=== PATIENT | female | born 1955 | race Caucasian/White ===

== ENCOUNTER 2016-04-24 17:40 | Inpatient (IN) | payer MEDICARE, OTHER ==
[2016-04-24 18:53] LABS: Hematocrit 34.5 % (37.0-47.0); Hemoglobin 11.5 gm/dL (12.5-16.0); Mean Cell Volume 86.3 fl (78-100); Mean Corpuscular Hemoglobin 28.8 pg (27-31); Mean Corpuscular Hgb Conc 33.3 g/dl (32-36); Mean Platelet Volume 8.8 fl (6.0-9.5); Neutrophil # 12.3 K/mm3 (1.3-6.0); Neutrophil % 81.1 % (42-75.0); Platelet Count 356 K/mm3 (150-450); Red Cell Distribution Width 13.9 % (11.5-14.0); White Blood Count 15.2 K/mm3 (4.0-10.5)
[2016-04-24] MEDS ORDERED: NORMAL SALINE 1,000 ML IV ONE (19:00)
--- NOTE | 2016-04-24 19:00 | ERNOTE ---
Time Seen by Provider: 04/24/16 18:40 Stated Complaint: ILL Presenting Symptoms:: cough Source: patient, family, [facility] records Exam Limitations: clinical condition Immunizations: IMMUNIZATION HX Immunizations Up to Date Yes History of Influenza Vaccine Yes Hx Pneumococcal Vaccination No Allergies/Adverse Reactions: Allergies No Known Allergies Allergy (Verified 02/27/16 15:27) Home Medications: HOME MEDICATIONS Aspirin [Aspirin Chewable] 81 mg PO DAILY 07/19/12 [Last Taken 11/23/12] Calcium Carbonate/Vitamin D3 [Calcium 600-Vit D3 200 Tablet] 1 each PO TID 07/19 [Last Taken 11/23/12] Gabapentin [Neurontin] 800 mg PO QID 07/19/12 [Last Taken 11/23/12] Imipramine HCl [Tofranil] 25 mg PO TID 07/19/12 [Last Taken 11/23/12] Methadone HCl 2.5 mg PO DAILY 07/19/12 [Last Taken 11/23/12] Multivitamin [Multivitamins] 1 each PO DAILY 07/19/12 [Last Taken 11/23/12] Rosuvastatin Calcium [Crestor] 20 mg PO DAILY 07/19/12 [Last Taken 11/23/12] predniSONE [Prednisone] 5 mg PO DAILY 07/19/12 [Last Taken 11/23/12] Alendronate Sodium [Fosamax] 70 mg PO TU 11/23/12 [Last Taken Unknown] Levothyroxine Sodium [Synthroid] 75 mcg PO DAILY 07/09/14 [Last Taken Unknown] Acetaminophen [Tylenol] 650 mg PO QID PRN #1 tablet 07/13/14 [Last Taken Unknown ] carBAMazepine [Tegretol] 2 tab PO BID #120 tablet 07/13/14 [Last Taken Unknown] Baclofen 20 mg PO QID 02/27/16 [Last Taken Unknown] Sulfamethoxazole/Trimethoprim [Bactrim Ds] 1 tab PO BID #60 tab 02/27/16 [Last Taken Unknown] - History of Present Ilness Narrative: Patient has had mild cough for 2-3 days as well as mild shortness of breath. Today she was more lethargic and confused and started to have a temperature of 99F and her BP started to drop. Per her brother she has a long standing history of MS, is bed and wheelchair bound, has a chronic suprapubic catheter and three episodes of sepsis from UTI' s before. Frequency/Possible Cause: Reports: occasional episodes Review of Systems - Narrative Narrative: limited by medical condition - Review of Systems Constitutional: Present: fever Respiratory: Present: shortness of breath Gastrointestinal/Abdominal: Absent: nausea, vomiting - Patient's Past Medical History Patient History - Medical: Chronic Pain, GERD, Hypothyroidism, Other Patient History - Cardiac/Respiratory: CHF - mild systolic dysfunction, diastolic dysfunction, echo 07/20/2012, Hypertension, Hyperlipidemia Patient History - Cancer: No Hx of Cancer Patient History - Surgical Procedures: Hysterectomy, Other - Family History Grandmother-Maternal Family History - Cancer: Colon Sister Family History - Medical: Kidney stone Family History - Cardiac/Respiratory: CVA/Stroke Brother Family History - Medical: Kidney stone Father Family History - Medical: Family History - Cardiac/Respiratory: No pertinent hx Family History - Cancer: Lung - Social History Living Situations: [facility] Alcohol Use: none Drug Use: none Physical Exam - Physical Exam General Appearance: Present: wd/wn, no apparent distress, lethargic - arousable Eye Exam: Normal inspection: bilateral, PERRL: bilateral Ears, Nose, Throat: Present: normal pharynx, dry mucous membranes Neck: Present: supple. Absent: lymphadenopathy (R), lymphadenopathy (L) Respiratory: Present: no respiratory distress, normal breath sounds, no accessory muscle use, lungs clear Cardiovascular/Chest: Present: regular rate, rhythm, no murmur Gastrointestinal/Abdominal: Present: normal bowel sounds, nontender, soft, distended, other - suprapubic cath in place Neurological Exam: Present: other - arousable, knows name, place and date of , [employer] and smile Skin Exam: Present: normal color, warm/dry ED Progress - Results and Orders Patient's Lab Results:: I have reviewed the patient's lab results. - Vital Signs Patient's Vital Signs:: I have reviewed the patient's vital signs. Vital Signs: Vital Signs 04/24/16 17:52 Temperature 36.6 C Pulse Rate 68 Respiratory 16 Rate Blood Pressure 96/44 O2 Sat by Pulse 97 Oximetry - X-Ray X-Ray #1 X-Ray: chest - no acute findings Interpretation: Reviewed by me - Progress/Reassessment Chief Complaint: Upper Respiratory Symptoms Progress Note-Subjective: 04/24/16 19:20 blood pressure improved with fluid bolus 04/24/16 19:30 discussed results with brother (POA) will admit for UTI with sepsis 04/24/16 19:40 discussed with Elzbieta Reynoso ([employer]ANGE [employer]NAG[employer]IST) accepted patient for admission to hospital , last cultures from February grew Klebisella and proteus, will start on Rocephin Departure - Departure Clinical Impression: UTI (urinary tract infection) Qualifiers: Urinary tract infection type: catheter-associated UTI Indwelling urinary catheter type: cystostomy catheter Encounter type: initial encounter Qualified Code(s): T83.510A - Infection and inflammatory reaction due to cystostomy catheter, initial encounter; N39.0 - Urinary tract infection, site not specified Sepsis Qualifiers: Sepsis type: sepsis due to unspecified organism Qualified Code(s): A41.9 - Sepsis, unspecified organism Disposition: [facility] Condition: Fair
[2016-04-24 19:16] LABS: Albumin * 3.1 gm/dl (3.4-5.0); Anion Gap 10.9 mmol/L (6.8-13.8); BUN/Creatinine Ratio 15.1 (9.0-21.6); Bilirubin, Total 0.3 mg/dL (0.0-1.1); Ca. Corrected For Albumin 9.9 mg/dL (8.4-10.2); Calcium * 9.5 mg/dL (7.9-10.9); Carbon Dioxide 31.3 mmol/L (24-32.6); Potassium 4.2 mmol/L (3.4-4.6)
[2016-04-24 19:20] LABS: Urine Bilirubin Negative (NEGATIVE); Urine Blood 250 /ul (NEGATIVE); Urine Ketone Negative (NEGATIVE); Urine Protein >=300 mg/dL (NEGATIVE); Urine Specific Gravity 1.015 SP.GR. (1.005-1.010); Urine Urobilinogen Normal (NORMAL); Urine pH 8.5 pH (5.0-7.0)
[2016-04-24 19:32] LABS: Urine Appearance Turbid; Urine Bacteria 4+; Urine Color Yellow; Urine Nitrite Positive (NEGATIVE); Urine WBC 0-5 /hpf (0-5)
[2016-04-24 19:33] LABS: Urine Transitional Epi Cells TRACE /hpf
[2016-04-24] MEDS: NORMAL SALINE 1,000 ML IV SCH (21:23)
--- NOTE | 2016-04-24 22:45 | HP ---
<Elzbieta Reynoso - Last Filed: 04/25/16 00:36> Chief Complaint - Chief Complaint Date of Service: 04/24/16 Time of Service: 22:44 Chief Complaint: decrease LOC History of Present Illness: Pt is a 60 year old female pt of Dr. Diez who presented to the ER from the [facility] for mild cough for 2-3 days as well as SOB. PMH includes: MS, mild diastolic dysfunction, GERD, HTN, HLD, and hypothyroidism. Most information obtained is from EMR and previous records as pt is not alert upon my examination. Per EMR today she was more lethargic, confused, hypotensive and developed a temperature of 99F. Per her brother she has a long standing history of MS, is bed and wheelchair bound, has a chronic suprapubic catheter and three episodes of sepsis from UTI's before. ER workup included a chest xray which was without any acute abnormalities. +UA with nitrates, esterase, and +4 bacteria. Initial BP in the ER was 90s/40s. Lactic acid was 1.4. Last urine culture grew Klebsiella, group B strep, and proteus mirabilis. Due to her multiple co- morbidities, previous history and clinical presentation at this time she will need to be admitted to in patient for further treatment of her UTI with IV antibiotics and close monitoring of her hemodynamic status. - Patient's Past Medical History Patient History - Medical: Chronic Pain, GERD, Hypothyroidism, Other - MS Patient History - Cardiac/Respiratory: CHF - mild systolic dysfunction, diastolic dysfunction, echo 07/20/2012, Hypertension, Hyperlipidemia Patient History - Cancer: No Hx of Cancer Patient History - Surgical Procedures: Hysterectomy, Other Patient History - Other: None LMP (females 10-50): Menopausal - Family History Grandmother-Maternal Family History - Cancer: Colon Sister Family History - Medical: Kidney stone Family History - Cardiac/Respiratory: CVA/Stroke Brother Family History - Medical: Kidney stone Father Family History - Medical: Family History - Cardiac/Respiratory: No pertinent hx Family History - Cancer: Lung - Social History Living Situations: prison Does anyone smoke in the home?: No Smoking Status: Never smoker Have you smoked in the past 12 months: No Alcohol Use: none Drug Use: none - Immunizations Immunizations Up to Date: Yes Hx Pneumococcal Vaccination: Yes History of Influenza Vaccine: Yes Review Of Systems (GEN) - Review of Systems Additional Comments: Unable to obtain due to patient decreased LOC Allergies/Adverse Reactions: Allergies Allergy/AdvReac Type Severity Reaction Status Date / Time No Known Allergies Allergy Verified 02/27/16 15:27 Home Medications: HOME MEDICATIONS Aspirin [Aspirin Chewable] 81 mg PO DAILY 07/19/12 [Last Taken 11/23/12] Calcium Carbonate/Vitamin D3 [Calcium 600-Vit D3 200 Tablet] 1 each PO TID 07/19 [Last Taken 11/23/12] Gabapentin [Neurontin] 800 mg PO QID 07/19/12 [Last Taken 11/23/12] Imipramine HCl [Tofranil] 25 mg PO TID 07/19/12 [Last Taken 11/23/12] Methadone HCl 2.5 mg PO DAILY 07/19/12 [Last Taken 11/23/12] Multivitamin [Multivitamins] 1 each PO DAILY 07/19/12 [Last Taken 11/23/12] Rosuvastatin Calcium [Crestor] 20 mg PO DAILY 07/19/12 [Last Taken 11/23/12] predniSONE [Prednisone] 5 mg PO DAILY 07/19/12 [Last Taken 11/23/12] Alendronate Sodium [Fosamax] 70 mg PO TU 11/23/12 [Last Taken Unknown] Levothyroxine Sodium [Synthroid] 75 mcg PO DAILY 07/09/14 [Last Taken Unknown] carBAMazepine [Tegretol] 2 tab PO BID #120 tablet 07/13/14 [Last Taken Unknown] Baclofen 20 mg PO QID 02/27/16 [Last Taken Unknown] Acetaminophen [Tylenol] 650 mg PO BID PRN 04/24/16 [Last Taken Unknown] Atenolol [Tenormin] 50 mg PO DAILY 04/24/16 [Last Taken Unknown] Methenamine Mandelate 1 gm PO QID 04/24/16 [Last Taken Unknown] Nystatin 1 appl TP BID 04/24/16 [Last Taken Unknown] Polyethylene Glycol 3350 [Miralax] 17 gm PO HS 04/24/16 [Last Taken Unknown] Exam - Exam Vital Signs: Vital Signs - Last Taken Temp 36.7 C 04/24/16 20:16 Pulse 71 04/24/16 20:16 Resp 16 04/24/16 20:16 BP 90/53 04/24/16 20:16 Pulse Ox 92 04/24/16 20:16 Constitutional: Present: Somnolent ENT Exam: Present: hearing grossly normal Eye Exam: bilateral eye: normal inspection, PERRL - +1 Respiratory: Present: chest non-tender, lungs clear, normal breath sounds, no respiratory distress, no accessory muscle use Cardiovascular/Chest: Present: normal peripheral pulses, regular rate, rhythm, no chest tenderness, no edema, no murmur Peripheral Pulses: dorsalis-pedis (R): 2+, dorsalis-pedis (L): 2+, radial (R): 2 +, radial (L): 2+ Abdomen: Present: Normal bowel sounds, soft, nontender, nondistended, no rebound tenderness /Rectal: Present: Other - Suprapubic catheter in place without drainage or erythema Extremity: Present: non-tender, no pedal edema, no calf tenderness, normal capillary refill, other - erythema noted bilaterally to distal phalanges. Additionally there is scattered erythema extending up the rigth lower extremity just past the knee. No swelling or tenderness noted. Skin Exam: Present: warm/dry, no cyanosis Lymphatic: Present: no adenopathy Neurologic: Present: motor weakness - BLE, other - Pt awakens to painful stimuli , will answer one question appropriately and then drift back to sleep. Diagnostic Studies: Laboratory Results Laboratory Tests 04/24/16 04/24/16 04/24/16 18:03 18:56 18:56 WBC 15.2 H Hgb 11.5 L Hct 34.5 L Plt Count 356 Immature Gran % (Auto) 0.90 H Immature Gran # (Auto) 0.13 H Neutrophils % 81.1 H Sodium 129 L Potassium 4.2 Chloride 91 L BUN 19 D Creatinine 1.26 Random Glucose 111 H Lactic Acid, Venous 1.4 AST 73 H ALT 82 H Urine Appearance Urine Protein Urine Blood Urine Nitrate Prot Sulfosalicylic Acd Ur Leukocyte Esterase Urine RBC Urine Bacteria Urine Culture Comments Influenza Type A Ag Influenza Type B Ag 04/24/16 04/24/16 19:10 19:41 WBC Hgb Hct Plt Count Immature Gran % (Auto) Immature Gran # (Auto) Neutrophils % Sodium Potassium Chloride BUN Creatinine Random Glucose Lactic Acid, Venous AST ALT Urine Appearance Turbid Urine Protein >=300 H Urine Blood 250 H Urine Nitrate Positive H Prot Sulfosalicylic Acd 4+ H Ur Leukocyte Esterase 75 H Urine RBC 5-10 H Urine Bacteria 4+ H Urine Culture Comments Culture to follow Influenza Type A Ag Negative Influenza Type B Ag Negative Assessment/Plan - Assessment/Plan (1) UTI (urinary tract infection) Assessment: Last urine culture grew Klebsiella, group B strep, and proteus mirabilis, all are sensitive to Rocephin. Pending culture here. Unfortunately BC were not drawn in ER, will order now, but has received one dose of antibiotics already. -1gm IV Rocephin Q24H -BC now -UA pending Problem: Acute QualifierTitle: Urinary tract infection type: catheter-associated UTI Indwelling urinary catheter type: cystostomy catheter Encounter type: initial encounter Qualified Code(s): T83.510A - Infection and inflammatory reaction due to cystostomy catheter, initial encounter; N39.0 - Urinary tract infection, site not specified (2) Altered mental status Assessment: Unsure etiology, per brother this usually happens when she gets UTI's. Pt responsive to painful stimuli, will answer a question appropriately then drifts back to sleep. Will continue to monitor for now. If continues to be altered can consider head CT for further etiology workup. -Urine drug screen -NPO until more awake Problem: Acute QualifierTitle: Altered mental status type: somnolence Qualified Code(s) : R40.0 - Somnolence (3) Hypotension Assessment: BP have remained with SBP in the 90's since admission. There is only one other previous recording from 02/2016 that pt was in 126/69. Could be due to infection , however pt is not clinical septic at this time, could be early sepsis. Will provided MIVF overnight and monitor VS closely. -MIVF D5.45@125ml/hr -VS Q2H -Hold BP medications Problem: Acute (4) Multiple sclerosis Assessment: Stable Problem: Chronic (5) GERD (gastroesophageal reflux disease) Problem: Chronic (6) HLD (hyperlipidemia) Problem: Chronic (7) Hypothyroidism Problem: Chronic <John Machado - Last Filed: 04/25/16 18:44> Immunizations: IMMUNIZATION HX Immunizations Up to Date Yes History of Influenza Vaccine Yes Hx Pneumococcal Vaccination Yes Exam - Exam Vital Signs: Vital Signs - Last Taken Temp 37.0 C 04/25/16 15:04 Pulse 118 H 04/25/16 15:04 Resp 18 04/25/16 15:04 BP 98/62 04/25/16 15:04 Pulse Ox 92 04/25/16 15:04 Diagnostic Studies: Laboratory Results WBC 15.2 K/mm3 (4.0-10.5) H 04/24/16 18:03 RBC 4.00 M/mm3 (4.2-5.4) L 04/24/16 18:03 Hgb 11.5 gm/dL (12.5-16.0) L 04/24/16 18:03 Hct 34.5 % (37.0-47.0) L 04/24/16 18:03 MCV 86.3 fl (78-100) 04/24/16 18:03 MCH 28.8 pg (27-31) 04/24/16 18:03 MCHC 33.3 g/dl (32-36) 04/24/16 18:03 RDW 13.9 % (11.5-14.0) 04/24/16 18:03 Plt Count 356 K/mm3 (150-450) 04/24/16 18:03 MPV 8.8 fl (6.0-9.5) 04/24/16 18:03 Immature Gran % (Auto) 0.90 % (0.001-0.429) H 04/24/16 18:03 Immature Gran # (Auto) 0.13 K/mm3 (0.000-0.0310) H 04/24/16 18:03 Neutrophils % 81.1 % (42-75.0) H 04/24/16 18:03 Lymphocytes % 10.8 % (20-51) L 04/24/16 18:03 Monocytes % 6.9 % (0.0-9) 04/24/16 18:03 Eosinophils % 0.0 % (0.0-3.0) 04/24/16 18:03 Basophils % 0.3 % (0.0-1.0) 04/24/16 18:03 Nucleated RBC % 0.0 k/mm3 (0-1) 04/24/16 18:03 Neutrophils # 12.3 K/mm3 (1.3-6.0) H 04/24/16 18:03 Lymphocytes # 1.6 k/mm3 (1.5-3.5) 04/24/16 18:03 Monocytes # 1.0 k/mm3 (0.0-1.0) 04/24/16 18:03 Eosinophils # 0.0 k/mm3 (0.0-0.7) 04/24/16 18:03 Absolute Basophils 0.0 k/mm3 (0.0-0.1) 04/24/16 18:03 Sodium 129 mmol/L (132-142) L 04/24/16 18:56 Plasma Sodium 129 mmol/L (130-142) L 04/24/16 18:56 Potassium 4.2 mmol/L (3.4-4.6) 04/24/16 18:56 Chloride 91 mmol/L (97-106) L 04/24/16 18:56 Carbon Dioxide 31.3 mmol/L (24-32.6) 04/24/16 18:56 Anion Gap 10.9 mmol/L (6.8-13.8) 04/24/16 18:56 BUN 19 mg/dL (3-23) D 04/24/16 18:56 Creatinine 1.26 mg/dL (0.4-1.4) 04/24/16 18:56 Est GFR (Non-Af Amer) 46 mL/min (60-130) L D 04/24/16 18:56 BUN/Creatinine Ratio 15.1 (9.0-21.6) 04/24/16 18:56 Random Glucose 111 mg/dL (70-110) H 04/24/16 18:56 Lactic Acid, Venous 1.4 mmol/L (0.4-2.0) 04/24/16 18:56 Calcium 9.5 mg/dL (7.9-10.9) 04/24/16 18:56 Calcium Adj for Albumin 9.9 mg/dL (8.4-10.2) 04/24/16 18:56 Total Bilirubin 0.3 mg/dL (0.0-1.1) 04/24/16 18:56 AST 73 U/L (0-48) H 04/24/16 18:56 ALT 82 U/L (19-67) H 04/24/16 18:56 Alkaline Phosphatase 105 U/L (50-170) 04/24/16 18:56 Total Protein 7.0 gm/dL (6.2-8.2) 04/24/16 18:56 Albumin 3.1 gm/dl (3.4-5.0) L 04/24/16 18:56 Urine Color Yellow 04/24/16 19:10 Urine Appearance Turbid 04/24/16 19:10 Urine pH 8.5 pH (5.0-7.0) 04/24/16 19:10 Ur Specific [place] 1.015 SP.GR. (1.005-1.010) 04/24/16 19:10 Urine Protein >=300 mg/dL (NEGATIVE) H 04/24/16 19:10 Urine Glucose (UA) Negative mg/dL (NEGATIVE) 04/24/16 19:10 Urine Ketones Negative mg/dL (NEGATIVE) 04/24/16 19:10 Urine Blood 250 /ul (NEGATIVE) H 04/24/16 19:10 Urine Nitrate Positive (NEGATIVE) H 04/24/16 19:10 Urine Bilirubin Negative mg/dl (NEGATIVE) 04/24/16 19:10 Prot Sulfosalicylic Acd 4+ mg/dL (0) H 04/24/16 19:10 Urine Urobilinogen Normal EU/dl (NORMAL) 04/24/16 19:10 Ur Leukocyte Esterase 75 /ul (NEGATIVE) H 04/24/16 19:10 Urine RBC 5-10 /hpf (0-5) H 04/24/16 19:10 Urine WBC 0-5 /hpf (0-5) 04/24/16 19:10 Ur Epithelial Cells Trace /hpf (0-5) 04/24/16 19:10 Ur Transition Epith Cell Trace /hpf (NONE) 04/24/16 19:10 Urine Bacteria 4+ (NONE) H 04/24/16 19:10 Urine Culture Comments Culture to follow 04/24/16 19:10 Urine Opiates Screen Negative (NEGATIVE) 04/24/16 19:10 Barbiturate Screen Negative (NEGATIVE) 04/24/16 19:10 Ur Phencyclidine Scrn Negative (NEGATIVE) 04/24/16 19:10 Urine Amphetamine Negative (NEGATIVE) 04/24/16 19:10 U Benzodiazepines Scrn Negative (NEGATIVE) 04/24/16 19:10 Urine Cocaine Screen Negative (NEGATIVE) 04/24/16 19:10 Urine Marijuana (THC) Negative (NEGATIVE) 04/24/16 19:10 Influenza Type A Ag Negative (NEGATIVE) 04/24/16 19:41 Influenza Type B Ag Negative (NEGATIVE) 04/24/16 19:41 Assessment/Plan - Narrative Narrative: I have reviewed this person's chart and examined the patient. I personally directed all of [facility]'s care for the patient. This is this is a case of impaired mentation due to a severe bladder infection, related partially to her indwelling Huddleston catheter for neurogenic bladder and in part related to her medication, which causes immunosuppression. Antibiotics are being given. Cultures are pending. I estimate a hospital stay of 3 days. Prognosis is fair to good.
[2016-04-25 03:03] LABS: Cocaine Ur Negative (NEGATIVE); Urine Barbiturate Negative (NEGATIVE); Urine Benzodiazepines Negative (NEGATIVE); Urine Opiates Negative (NEGATIVE); Urine PCP Negative (NEGATIVE); Urine THC Negative (NEGATIVE)
[2016-04-25] MEDS: NORMAL SALINE 1,000 ML IV SCH ×2 (04:11→09:05)
[2016-04-25] MEDS: ENOXAPARIN SODIUM 40 MG/0.4 ML SYRG SC SCH (07:25)
[2016-04-25] MEDS ORDERED: ACETAMINOPHEN 325 MG TABLET PO PRN (07:44)
[2016-04-25] MEDS: ASPIRIN 81 MG TAB.CHEW PO SCH (09:08)
[2016-04-25] MEDS: LEVOTHYROXINE SODIUM 75 MCG TABLET PO SCH (09:08)
[2016-04-25] MEDS: IMIPRAMINE HCL 25 MG TABLET PO SCH ×3 (09:08→16:56)
[2016-04-25] MEDS: CALCIUM CARBONATE/VITAMIN D3 1 TAB TABLET PO SCH ×3 (09:08→16:54)
[2016-04-25] MEDS: BACLOFEN 10 MG TABLET PO SCH ×4 (09:09→20:11)
[2016-04-25] MEDS: predniSONE 10 MG TABLET PO SCH (09:09)
[2016-04-25] MEDS: MULTIVITAMINS 1 CAP CAPSULE PO SCH (09:10)
[2016-04-25] MEDS: ATENOLOL 50 MG TABLET PO SCH (09:10)
[2016-04-25] MEDS: carBAMazepine 200 MG TABLET PO SCH ×2 (09:10→20:12)
[2016-04-25] MEDS: NYSTATIN 30 APPL TUBE TP SCH ×2 (09:11→20:13)
[2016-04-25] MEDS: GABAPENTIN 400 MG CAPSULE PO SCH ×4 (09:16→20:10)
[2016-04-25] MEDS: METHADONE HCL 10 MG TABLET PO SCH (09:16)
[2016-04-25] MEDS: NORMAL SALINE 1,000 ML IV PRN ×2 (12:47→23:10)
[2016-04-25] MEDS: ROSUVASTATIN CALCIUM 10 MG TABLET PO SCH (20:12)
[2016-04-25] MEDS: POLYETHYLENE GLYCOL 3350 119 GM BTL PO SCH (20:13)
[2016-04-26 05:40] LABS: Hematocrit 32.2 % (37.0-47.0); Hemoglobin 10.6 gm/dL (12.5-16.0); Mean Cell Volume 87.7 fl (78-100); Mean Corpuscular Hemoglobin 28.9 pg (27-31); Mean Corpuscular Hgb Conc 32.9 g/dl (32-36); Mean Platelet Volume 8.8 fl (6.0-9.5); Neutrophil # 4.3 K/mm3 (1.3-6.0); Neutrophil % 58.3 % (42-75.0); Platelet Count 347 K/mm3 (150-450); Red Blood Count 3.67 M/mm3 (4.2-5.4); Red Cell Distribution Width 13.9 % (11.5-14.0); White Blood Count 7.3 K/mm3 (4.0-10.5)
[2016-04-26] MEDS ORDERED: ALENDRONATE SODIUM 70 MG TABLET PO SCH (06:00)
[2016-04-26 06:10] LABS: Albumin * 2.4 gm/dl (3.4-5.0); Anion Gap 10.7 mmol/L (6.8-13.8); BUN/Creatinine Ratio 11.8 (9.0-21.6); Bilirubin, Total 0.2 mg/dL (0.0-1.1); Ca. Corrected For Albumin 9.6 mg/dL (8.4-10.2); Calcium * 8.6 mg/dL (7.9-10.9); Carbamazepine 11.7 mcg/mL (4.0-12.0); Potassium 3.7 mmol/L (3.4-4.6); T4 Free * 0.9 ng/dL (0.76-1.46); TSH * 2.025 uIU/mL (0.358-3.74); Total Protein 6.1 gm/dL (6.2-8.2)
[2016-04-26] MEDS: LEVOTHYROXINE SODIUM 75 MCG TABLET PO SCH (07:53)
[2016-04-26] MEDS: ENOXAPARIN SODIUM 40 MG/0.4 ML SYRG SC SCH (07:53)
[2016-04-26] MEDS ORDERED: ERTAPENEM SODIUM 1,000 MG in NORMAL SALINE 50 ML IV SCH (08:45)
--- NOTE | 2016-04-26 08:52 | PN ---
Subjective - Date and Time Seen Date: 04/26/16 Time: 07:30 Subjective Narrative: Complains of fatigue. Otherwise feels okay. Much better on observation than when she was admitted when she was obtunded. No nausea or vomiting. No pain. At the time of rounds this morning, final culture on her urine was not yet available, however she is MRSA positive on nasopharyngeal screen. Objective - Review of Systems Generalized/Overall Review: Reports: Fatigue EENTM: Reports: No Symptoms Reported Respiratory: Reports: No Symptoms Reported Cardiac: Reports: No Symptoms Reported Abdominal: Reports: No Symptoms Reported Genitourinary Symptoms: Reports: No Symptoms Reported Musculoskeletal Complaints: Reports: No Symptoms Reported Neurological: Reports: Pre-existing Deficit Skin: Reports: No Symptoms Reported Endocrine: Reports: No Symptoms Reported Misc: All systems neg except as marked - Vitals Vitals: Last Vital Signs Selected Entries 04/26/16 04:08 Temperature 36.7 C Temperature Oral Source Pulse Rate 110 H Respiratory 20 Rate Blood Pressure 101/66 Blood Pressure Supine Position O2 Sat by Pulse 96 Oximetry Oxygen Delivery Nasal Cannula Method Oxygen Flow 1 Rate - Abnormal Lab Findings Abnormal Lab Findings: Abnormal Lab Results 04/26/16 04/26/16 Range/Units 05:30 05:30 RBC 3.67 L (4.2-5.4) M/mm3 Hgb 10.6 L (12.5-16.0) gm/dL Hct 32.2 L (37.0-47.0) % Eosinophils % 3.3 H (0.0-3.0) % Total Protein 6.1 L (6.2-8.2) gm/dL Albumin 2.4 L (3.4-5.0) gm/dl - Exam Constitutional: Present: Cooperative, Somnolent, Looks Older than stated age ENT Exam: Present: normal ENT inspection, hearing grossly normal, moist mucous membranes Respiratory: Present: lungs clear, no respiratory distress Cardiovascular/Chest: Present: regular rate, rhythm, no murmur Abdomen: Present: Normal bowel sounds, soft, nontender, nondistended, no rebound tenderness, no hepatospenomegaly, no masses, obese Extremity: Present: pedal edema Skin Exam: Present: no cyanosis, cool/dry Neurologic: Present: other - Legs paralyzed. Mental functioning slow. Appearance: Present: appropriate appearance, neat Eye contact: Present: cooperative, good eye contact, decreased rate of speech Thoughts: Present: other - Slowed mildly impaired thinking process Assessment/Plan Plan Narrative: Bactroban and Hibiclens for the MRSA screening positive. Overweight bladder culture reports. Continue IV antibiotics. Follow lab work. Estimate 2 more days in the hospital. - Problems/Diagnosis (1) Positive result for methicillin resistant Staphylococcus aureus (MRSA) screening Problem: Acute (2) Altered mental status Problem: Acute Qualifiers: Altered mental status type: somnolence Qualified Code(s): R40.0 - Somnolence (3) Sepsis Problem: Acute Qualifiers: Sepsis type: sepsis due to unspecified organism Qualified Code(s): A41.9 - Sepsis, unspecified organism (4) UTI (urinary tract infection) Problem: Acute Qualifiers: Urinary tract infection type: catheter-associated UTI Indwelling urinary catheter type: cystostomy catheter Encounter type: initial encounter Qualified Code(s): T83.510A - Infection and inflammatory reaction due to cystostomy catheter, initial encounter; N39.0 - Urinary tract infection, site not specified (5) GERD (gastroesophageal reflux disease) Problem: Chronic Qualifiers: Esophagitis presence: without esophagitis Qualified Code(s): K21.9 - Gastro -esophageal reflux disease without esophagitis (6) HLD (hyperlipidemia) Problem: Chronic Qualifiers: Hyperlipidemia type: unspecified Qualified Code(s): E78.5 - Hyperlipidemia , unspecified (7) Hypothyroidism Problem: Chronic Qualifiers: Hypothyroidism type: acquired Qualified Code(s): E03.9 - Hypothyroidism, unspecified (8) Chronic indwelling Huddleston catheter Problem: Chronic (9) Chronic pain Problem: Chronic (10) Immunocompromised Problem: Chronic (11) 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
[2016-04-26] MEDS: MEROPENEM 1 GM in NORMAL SALINE 100 ML IV SCH ×2 (09:41→16:08)
[2016-04-26] MEDS: IMIPRAMINE HCL 25 MG TABLET PO SCH ×3 (09:42→16:09)
[2016-04-26] MEDS: BACLOFEN 10 MG TABLET PO SCH ×4 (09:42→21:25)
[2016-04-26] MEDS: GABAPENTIN 400 MG CAPSULE PO SCH ×4 (09:42→21:23)
[2016-04-26] MEDS: ATENOLOL 50 MG TABLET PO SCH (09:42)
[2016-04-26] MEDS: ASPIRIN 81 MG TAB.CHEW PO SCH (09:42)
[2016-04-26] MEDS: CALCIUM CARBONATE/VITAMIN D3 1 TAB TABLET PO SCH ×3 (09:42→16:07)
[2016-04-26] MEDS: carBAMazepine 200 MG TABLET PO SCH ×2 (09:42→21:24)
[2016-04-26] MEDS: predniSONE 10 MG TABLET PO SCH (09:43)
[2016-04-26] MEDS: MULTIVITAMINS 1 CAP CAPSULE PO SCH (09:43)
[2016-04-26] MEDS: MUPIROCIN 22 APPL TUBE TP SCH ×2 (09:43→21:33)
[2016-04-26] MEDS: NYSTATIN 30 APPL TUBE TP SCH ×2 (09:44→21:27)
[2016-04-26] MEDS: METHADONE HCL 10 MG TABLET PO SCH (09:49)
[2016-04-26] MEDS: CHLORHEX GL/ISOPROPYL ALCOHOL 960 APPL BTL TP SCH ×2 (09:53→21:26)
[2016-04-26] MEDS: NORMAL SALINE 1,000 ML IV PRN (12:19)
[2016-04-26] MEDS: ROSUVASTATIN CALCIUM 10 MG TABLET PO SCH (21:25)
[2016-04-26] MEDS: POLYETHYLENE GLYCOL 3350 119 GM BTL PO SCH (21:27)
[2016-04-27] MEDS: NORMAL SALINE 1,000 ML IV PRN ×3 (00:43→23:30)
[2016-04-27] MEDS: MEROPENEM 1 GM in NORMAL SALINE 100 ML IV SCH ×3 (01:09→17:35)
[2016-04-27 05:58] LABS: Hematocrit 35.3 % (37.0-47.0); Hemoglobin 11.7 gm/dL (12.5-16.0); Mean Cell Volume 86.9 fl (78-100); Mean Corpuscular Hemoglobin 28.8 pg (27-31); Mean Corpuscular Hgb Conc 33.1 g/dl (32-36); Mean Platelet Volume 8.7 fl (6.0-9.5); Neutrophil # 3.5 K/mm3 (1.3-6.0); Neutrophil % 53.1 % (42-75.0); Platelet Count 429 K/mm3 (150-450); Red Blood Count 4.06 M/mm3 (4.2-5.4); Red Cell Distribution Width 13.9 % (11.5-14.0); White Blood Count 6.7 K/mm3 (4.0-10.5)
[2016-04-27 06:17] LABS: Anion Gap 11.8 mmol/L (6.8-13.8); BUN/Creatinine Ratio 13.5 (9.0-21.6); Calcium * 9.1 mg/dL (7.9-10.9); Carbon Dioxide 27.9 mmol/L (24-32.6); Estimated Creat Clear 106.4; Potassium 3.7 mmol/L (3.4-4.6)
[2016-04-27] MEDS: LEVOTHYROXINE SODIUM 75 MCG TABLET PO SCH (07:08)
[2016-04-27] MEDS: ENOXAPARIN SODIUM 40 MG/0.4 ML SYRG SC SCH (07:08)
[2016-04-27] MEDS: ATENOLOL 50 MG TABLET PO SCH (08:50)
[2016-04-27] MEDS: IMIPRAMINE HCL 25 MG TABLET PO SCH ×3 (08:50→17:35)
[2016-04-27] MEDS: GABAPENTIN 400 MG CAPSULE PO SCH ×4 (08:50→20:19)
[2016-04-27] MEDS: ASPIRIN 81 MG TAB.CHEW PO SCH (08:50)
[2016-04-27] MEDS: carBAMazepine 200 MG TABLET PO SCH ×2 (08:50→20:19)
[2016-04-27] MEDS: CALCIUM CARBONATE/VITAMIN D3 1 TAB TABLET PO SCH ×3 (08:51→17:35)
[2016-04-27] MEDS: MULTIVITAMINS 1 CAP CAPSULE PO SCH (08:51)
[2016-04-27] MEDS: BACLOFEN 10 MG TABLET PO SCH ×4 (08:51→20:19)
[2016-04-27] MEDS: predniSONE 10 MG TABLET PO SCH (08:51)
[2016-04-27] MEDS: MUPIROCIN 22 APPL TUBE TP SCH ×2 (08:51→20:17)
[2016-04-27] MEDS: CHLORHEX GL/ISOPROPYL ALCOHOL 960 APPL BTL TP SCH ×2 (08:51→20:19)
[2016-04-27] MEDS: NYSTATIN 30 APPL TUBE TP SCH ×2 (08:52→20:18)
[2016-04-27] MEDS: METHADONE HCL 10 MG TABLET PO SCH (08:58)
--- NOTE | 2016-04-27 15:05 | PN ---
Subjective - Date and Time Seen Date: 04/27/16 Time: 15:01 Subjective Narrative: Complains of fatigue. Otherwise feels okay. Much better on observation than when she was admitted when she was obtunded. No nausea or vomiting. No pain. Her urine is growing Proteus. Objective - Review of Systems Generalized/Overall Review: Reports: Weakness, Malaise EENTM: Reports: No Symptoms Reported Respiratory: Reports: No Symptoms Reported Cardiac: Reports: No Symptoms Reported Abdominal: Reports: No Symptoms Reported Genitourinary Symptoms: Reports: No Symptoms Reported Musculoskeletal Complaints: Reports: No Symptoms Reported Neurological: Reports: Pre-existing Deficit Skin: Reports: No Symptoms Reported Endocrine: Reports: No Symptoms Reported Misc: All systems neg except as marked - Vitals Vitals: Last Vital Signs Selected Entries 04/27/16 13:41 Temperature 36.6 C Temperature Oral Source Pulse Rate 120 H Respiratory 18 Rate Blood Pressure 118/76 Blood Pressure Sitting Position O2 Sat by Pulse 96 Oximetry Oxygen Delivery Room Air Method Oxygen Flow 0 Rate - Abnormal Lab Findings Abnormal Lab Findings: Abnormal Lab Results 04/27/16 Range/Units 05:15 RBC 4.06 L (4.2-5.4) M/mm3 Hgb 11.7 L (12.5-16.0) gm/dL Hct 35.3 L (37.0-47.0) % Immature Gran % (Auto) 0.60 H (0.001-0.429) % Immature Gran # (Auto) 0.04 H (0.000-0.0310) K/mm3 Eosinophils % 6.3 H (0.0-3.0) % - Exam Constitutional: Present: Alert, Oriented x3, Cooperative, Well developed, Well nourished, No distress ENT Exam: Present: normal ENT inspection, hearing grossly normal Neck: Present: normal inspection Respiratory: Present: lungs clear, no respiratory distress Cardiovascular/Chest: Present: regular rate, rhythm, no murmur, tachycardia Abdomen: Present: Normal bowel sounds, soft, nontender, nondistended, no rebound tenderness, no hepatospenomegaly, no masses Extremity: Present: pedal edema Skin Exam: Present: normal color, warm/dry, no cyanosis Neurologic: Present: alert Appearance: Present: appropriate appearance, neat Eye contact: Present: cooperative, good eye contact Assessment/Plan Plan Narrative: Follow labs. IV antibiotics. Continue Hibiclens body wash and Bactroban to nostrils. Probably back to [facility] tomorrow. - Problems/Diagnosis (1) Positive result for methicillin resistant Staphylococcus aureus (MRSA) screening Problem: Acute (2) Altered mental status Problem: Acute Qualifiers: Altered mental status type: somnolence Qualified Code(s): R40.0 - Somnolence (3) Sepsis Problem: Acute Qualifiers: Sepsis type: sepsis due to unspecified organism Qualified Code(s): A41.9 - Sepsis, unspecified organism (4) UTI (urinary tract infection) Problem: Acute Qualifiers: Urinary tract infection type: catheter-associated UTI Indwelling urinary catheter type: cystostomy catheter Encounter type: initial encounter Qualified Code(s): T83.510A - Infection and inflammatory reaction due to cystostomy catheter, initial encounter; N39.0 - Urinary tract infection, site not specified (5) GERD (gastroesophageal reflux disease) Problem: Chronic Qualifiers: Esophagitis presence: without esophagitis Qualified Code(s): K21.9 - Gastro -esophageal reflux disease without esophagitis (6) HLD (hyperlipidemia) Problem: Chronic Qualifiers: Hyperlipidemia type: unspecified Qualified Code(s): E78.5 - Hyperlipidemia , unspecified (7) Hypothyroidism Problem: Chronic Qualifiers: Hypothyroidism type: acquired Qualified Code(s): E03.9 - Hypothyroidism, unspecified (8) Chronic indwelling Huddleston catheter Problem: Chronic (9) Chronic pain Problem: Chronic (10) Immunocompromised Problem: Chronic (11) 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
[2016-04-27] MEDS: POLYETHYLENE GLYCOL 3350 119 GM BTL PO SCH (20:18)
[2016-04-27] MEDS: ROSUVASTATIN CALCIUM 10 MG TABLET PO SCH (20:19)
[2016-04-28] MEDS: MEROPENEM 1 GM in NORMAL SALINE 100 ML IV SCH ×2 (00:08→08:33)
[2016-04-28] MEDS: LEVOTHYROXINE SODIUM 75 MCG TABLET PO SCH (06:35)
[2016-04-28] MEDS: ASPIRIN 81 MG TAB.CHEW PO SCH (08:31)
[2016-04-28] MEDS: ENOXAPARIN SODIUM 40 MG/0.4 ML SYRG SC SCH (08:31)
[2016-04-28] MEDS: CHLORHEX GL/ISOPROPYL ALCOHOL 960 APPL BTL TP SCH (08:32)
[2016-04-28] MEDS: CALCIUM CARBONATE/VITAMIN D3 1 TAB TABLET PO SCH (08:32)
[2016-04-28] MEDS: MUPIROCIN 22 APPL TUBE TP SCH (08:32)
[2016-04-28] MEDS: BACLOFEN 10 MG TABLET PO SCH (08:32)
[2016-04-28] MEDS: NYSTATIN 30 APPL TUBE TP SCH (08:33)
[2016-04-28] MEDS: MULTIVITAMINS 1 CAP CAPSULE PO SCH (08:33)
[2016-04-28] MEDS: GABAPENTIN 400 MG CAPSULE PO SCH (08:35)
[2016-04-28] MEDS: IMIPRAMINE HCL 25 MG TABLET PO SCH (08:35)
[2016-04-28] MEDS: ATENOLOL 50 MG TABLET PO SCH (08:35)
[2016-04-28] MEDS: carBAMazepine 200 MG TABLET PO SCH (08:35)
[2016-04-28] MEDS: predniSONE 10 MG TABLET PO SCH (08:35)
[2016-04-28] MEDS: METHADONE HCL 10 MG TABLET PO SCH (08:36)
[2016-04-28 09:56] VITALS: BP 123/69
--- NOTE | 2016-04-28 10:41 | DS ---
(1) Positive result for methicillin resistant Staphylococcus aureus (MRSA) screening Problem: Acute (2) Altered mental status Problem: Acute Qualifiers: Altered mental status type: somnolence Qualified Code(s): R40.0 - Somnolence (3) Sepsis Problem: Acute Qualifiers: Sepsis type: sepsis due to unspecified organism Qualified Code(s): A41.9 - Sepsis, unspecified organism (4) UTI (urinary tract infection) Problem: Acute Qualifiers: Urinary tract infection type: catheter-associated UTI Indwelling urinary catheter type: cystostomy catheter Encounter type: initial encounter Qualified Code(s): T83.510A - Infection and inflammatory reaction due to cystostomy catheter, initial encounter; N39.0 - Urinary tract infection, site not specified (5) GERD (gastroesophageal reflux disease) Problem: Chronic Qualifiers: Esophagitis presence: without esophagitis Qualified Code(s): K21.9 - Gastro -esophageal reflux disease without esophagitis (6) HLD (hyperlipidemia) Problem: Chronic Qualifiers: Hyperlipidemia type: unspecified Qualified Code(s): E78.5 - Hyperlipidemia , unspecified (7) Hypothyroidism Problem: Chronic Qualifiers: Hypothyroidism type: acquired Qualified Code(s): E03.9 - Hypothyroidism, unspecified (8) Chronic indwelling Huddleston catheter Problem: Chronic (9) Chronic pain Problem: Chronic (10) Immunocompromised Problem: Chronic (11) 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 Within 24 hours she was more like her usual self. Almost certainly she had mental status changes due to sepsis due to a Proteus UTI due to in part her indwelling Huddleston catheter and her immunosuppression due to the medication she takes for her multiple sclerosis. Her prednisone dose was doubled because of the stress of the infection, but we will decrease it back to where it was now that were getting ready to send her back to the long-term. We will continue her antibiotics for an additional 8 days starting tomorrow, and we plan to use once per day ertapenem. Prognosis short term is fair to good and long-term poor. She remains at risk for ongoing serious urinary tract infections. Procedures Performed: none Discharge Disposition: [facility] Disposition: [facility] Condition: Fair Discharge Activity: Activity as tolerated Discharge Diet: General/regular food Discharge Level of Care:: SNF - Half-Way Referrals: John Machado MD [Primary Care Provider] - Problem Oriented Discharge Instructions to Patient/Family: Sepsis, Adult, Urinary Tract Infection, Adult, [id number] Additional Patient Instructions (free text): 1000 mg Ertapenem IV daily for 8 more days, beginning tomorrow Prescriptions (Any new or edited meds): Ertapenem Sodium [Invanz] 1,000 mg IV DAILY #8 vial Complete Home Medications List: Complete Home Medication List: Aspirin [Aspirin Chewable] 81 mg PO DAILY 07/19/12 Calcium Carbonate/Vitamin D3 [Calcium 600-Vit D3 200 Tablet] 1 each PO TID 07/19 Gabapentin [Neurontin] 800 mg PO QID 07/19/12 Imipramine HCl [Tofranil] 25 mg PO TID 07/19/12 Methadone HCl 2.5 mg PO DAILY 07/19/12 Multivitamin [Multivitamins] 1 each PO DAILY 07/19/12 Rosuvastatin Calcium [Crestor] 20 mg PO DAILY 07/19/12 predniSONE [Prednisone] 5 mg PO DAILY 07/19/12 Alendronate Sodium [Fosamax] 70 mg PO TU 11/23/12 Levothyroxine Sodium [Synthroid] 75 mcg PO DAILY 07/09/14 carBAMazepine [Tegretol] 2 tab PO BID #120 tablet 07/13/14 Baclofen 20 mg PO QID 02/27/16 Acetaminophen [Tylenol] 650 mg PO BID PRN 04/24/16 Atenolol [Tenormin] 50 mg PO DAILY 04/24/16 Methenamine Mandelate 1 gm PO QID 04/24/16 Nystatin 1 appl TP BID 04/24/16 Polyethylene Glycol 3350 [Miralax] 17 gm PO HS 04/24/16 Acetaminophen [Tylenol] 650 mg PO QID PRN #0 tablet 04/28/16 Ertapenem Sodium [Invanz] 1,000 mg IV DAILY #8 vial 04/28/16
--- NOTE | 2016-05-23 18:32 | PN ---
Subjective - Date and Time Seen Date: 04/25/16 Time: 07:30 Subjective Narrative: Perhaps a little less lethargic. No complaint of pain. No vomiting. Cultures pending. Objective - Review of Systems Generalized/Overall Review: Reports: No Symptoms Reported - unable due to clinical condition - Vitals Vitals: Last Vital Signs Selected Entries 04/25/16 06:24 Temperature 36.9 C Temperature Oral Source Pulse Rate 66 Respiratory 16 Rate Blood Pressure 121/61 Blood Pressure Supine Position O2 Sat by Pulse 99 Oximetry Oxygen Delivery Room Air Method - Exam Constitutional: Present: Cooperative, Somnolent ENT Exam: Present: normal ENT inspection Respiratory: Present: lungs clear, no respiratory distress Cardiovascular/Chest: Present: regular rate, rhythm, no murmur Abdomen: Present: Normal bowel sounds, soft, nondistended, no hepatospenomegaly Extremity: Present: other - legs paralyzed Skin Exam: Present: normal color, warm/dry, no cyanosis Appearance: Present: neat Eye contact: Present: cooperative Assessment/Plan Plan Narrative: Advance diet. Follow labs. Await cultures. Continue antibiotics. - Problems/Diagnosis (1) Positive result for methicillin resistant Staphylococcus aureus (MRSA) screening Problem: Acute (2) Altered mental status Problem: Acute Qualifiers: Altered mental status type: somnolence Qualified Code(s): R40.0 - Somnolence (3) Sepsis Problem: Acute Qualifiers: Sepsis type: sepsis due to unspecified organism Qualified Code(s): A41.9 - Sepsis, unspecified organism (4) UTI (urinary tract infection) Problem: Acute Qualifiers: Urinary tract infection type: catheter-associated UTI Indwelling urinary catheter type: cystostomy catheter Encounter type: initial encounter Qualified Code(s): T83.510A - Infection and inflammatory reaction due to cystostomy catheter, initial encounter; N39.0 - Urinary tract infection, site not specified (5) GERD (gastroesophageal reflux disease) Problem: Chronic Qualifiers: Esophagitis presence: without esophagitis Qualified Code(s): K21.9 - Gastro -esophageal reflux disease without esophagitis (6) HLD (hyperlipidemia) Problem: Chronic Qualifiers: Hyperlipidemia type: unspecified Qualified Code(s): E78.5 - Hyperlipidemia , unspecified (7) Hypothyroidism Problem: Chronic Qualifiers: Hypothyroidism type: acquired Qualified Code(s): E03.9 - Hypothyroidism, unspecified (8) Chronic indwelling Huddleston catheter Problem: Chronic (9) Chronic pain Problem: Chronic (10) Immunocompromised Problem: Chronic (11) 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
--- NOTE | 2016-05-28 14:05 | PN ---
Subjective - Date and Time Seen Date: 05/26/16 Time: 06:30 Subjective Narrative: Lethargic. Cultures pending. Has been stable according to nursing staff. Objective - Review of Systems Generalized/Overall Review: Reports: No Symptoms Reported - too lethargic for review of systems. - Vitals Vitals: Last Vital Signs Selected Entries 04/28/16 02:16 Temperature 37.2 C Temperature Oral Source Pulse Rate 111 H Respiratory 22 H Rate Blood Pressure 114/66 Blood Pressure Supine Position O2 Sat by Pulse 98 Oximetry Oxygen Delivery Room Air Method - Exam Constitutional: Present: Well developed, Lethargic, Obtunded ENT Exam: Present: normal ENT inspection Neck: Present: normal inspection. Absent: lymphadenopathy (R), lymphadenopathy (L) Respiratory: Present: lungs clear, no respiratory distress Cardiovascular/Chest: Present: regular rate, rhythm, no edema Abdomen: Present: Normal bowel sounds, soft, nontender, nondistended, no rebound tenderness, no hepatospenomegaly, no masses Extremity: Present: other - thin legs Skin Exam: Present: normal color, warm/dry, no cyanosis Neurologic: Present: other - legs paralyzed Appearance: Present: appropriate appearance, neat Eye contact: Present: decreased rate of speech Assessment/Plan Plan Narrative: Supportive care. IV antibiotics. Await cultures. Follow labs. - Problems/Diagnosis (1) Positive result for methicillin resistant Staphylococcus aureus (MRSA) screening Problem: Acute (2) Altered mental status Problem: Acute Qualifiers: Altered mental status type: somnolence Qualified Code(s): R40.0 - Somnolence (3) Sepsis Problem: Acute Qualifiers: Sepsis type: sepsis due to unspecified organism Qualified Code(s): A41.9 - Sepsis, unspecified organism (4) UTI (urinary tract infection) Problem: Acute Qualifiers: Urinary tract infection type: catheter-associated UTI Indwelling urinary catheter type: cystostomy catheter Encounter type: initial encounter Qualified Code(s): T83.510A - Infection and inflammatory reaction due to cystostomy catheter, initial encounter; N39.0 - Urinary tract infection, site not specified (5) GERD (gastroesophageal reflux disease) Problem: Chronic Qualifiers: Esophagitis presence: without esophagitis Qualified Code(s): K21.9 - Gastro -esophageal reflux disease without esophagitis (6) HLD (hyperlipidemia) Problem: Chronic Qualifiers: Hyperlipidemia type: unspecified Qualified Code(s): E78.5 - Hyperlipidemia , unspecified (7) Hypothyroidism Problem: Chronic Qualifiers: Hypothyroidism type: acquired Qualified Code(s): E03.9 - Hypothyroidism, unspecified (8) Chronic indwelling Huddleston catheter Problem: Chronic (9) Chronic pain Problem: Chronic (10) Immunocompromised Problem: Chronic (11) 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
--- NOTE | 2016-05-31 07:55 | PN ---
Subjective - Date and Time Seen Date: 04/25/16 Time: 07:30 Subjective Narrative: Lethargic. Cultures pending. Has been stable according to nursing staff. IV antibiotics continue. Objective - Review of Systems Generalized/Overall Review: Reports: No Symptoms Reported - unable due to lethargy - Vitals Vitals: Last Vital Signs Selected Entries 04/25/16 06:24 Temperature 36.9 C Temperature Oral Source Pulse Rate 66 Respiratory 16 Rate Blood Pressure 121/61 Blood Pressure Supine Position O2 Sat by Pulse 99 Oximetry Oxygen Delivery Room Air Method - Exam Constitutional: Present: Well developed, No distress, Lethargic, Obese ENT Exam: Present: normal ENT inspection Neck: Present: normal inspection Respiratory: Present: lungs clear, no respiratory distress Cardiovascular/Chest: Present: regular rate, rhythm, no murmur Abdomen: Present: Normal bowel sounds, soft, nontender, nondistended, no rebound tenderness, no hepatospenomegaly, no masses, obese Extremity: Absent: pedal edema Skin Exam: Present: normal color, warm/dry, no cyanosis Neurologic: Present: other Appearance: Present: appropriate appearance, neat Assessment/Plan Plan Narrative: Continue with IV antibiotics and fluids. Await cultures. Follow labs. - Problems/Diagnosis (1) Positive result for methicillin resistant Staphylococcus aureus (MRSA) screening Problem: Acute (2) Altered mental status Problem: Acute Qualifiers: Altered mental status type: somnolence Qualified Code(s): R40.0 - Somnolence (3) Sepsis Problem: Acute Qualifiers: Sepsis type: sepsis due to unspecified organism Qualified Code(s): A41.9 - Sepsis, unspecified organism (4) UTI (urinary tract infection) Problem: Acute Qualifiers: Urinary tract infection type: catheter-associated UTI Indwelling urinary catheter type: cystostomy catheter Encounter type: initial encounter Qualified Code(s): T83.510A - Infection and inflammatory reaction due to cystostomy catheter, initial encounter; N39.0 - Urinary tract infection, site not specified (5) GERD (gastroesophageal reflux disease) Problem: Chronic Qualifiers: Esophagitis presence: without esophagitis Qualified Code(s): K21.9 - Gastro -esophageal reflux disease without esophagitis (6) HLD (hyperlipidemia) Problem: Chronic Qualifiers: Hyperlipidemia type: unspecified Qualified Code(s): E78.5 - Hyperlipidemia , unspecified (7) Hypothyroidism Problem: Chronic Qualifiers: Hypothyroidism type: acquired Qualified Code(s): E03.9 - Hypothyroidism, unspecified (8) Chronic indwelling Huddleston catheter Problem: Chronic (9) Chronic pain Problem: Chronic (10) Immunocompromised Problem: Chronic (11) 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
== END 2016-04-28 11:55 | DRG 872 ==
LOC: ER 17:40 → MS 19:51 → OBSVTOIN 19:51 → MS 20:11
PROVIDERS: ADMIT Nurse Practitioner Gerontology; ATTEND Allergy & Immunology
DX: A41.9 Sepsis, unspecified organism (principal); T83.511A Infection and inflammatory reaction due to indwelling urethral catheter, initial encounter; N39.0 Urinary tract infection, site not specified; B96.4 Proteus (mirabilis) (morganii) as the cause of diseases classified elsewhere; R41.82 Altered mental status, unspecified; G35 Multiple sclerosis; N31.8 Other neuromuscular dysfunction of bladder; E78.5 Hyperlipidemia, unspecified; E03.9 Hypothyroidism, unspecified; K21.9 Gastro-esophageal reflux disease without esophagitis; Z22.322 Carrier or suspected carrier of Methicillin resistant Staphylococcus aureus
CPT/HCPCS: 36415; 71010; 80048; 80053; 80156; 80299; 81001; 83605; 84439; 84443; 85025; 87040; 87077; 87081; 87086; 87186; 87400; 94760; 96374; 99284; G0479

== ENCOUNTER 2017-11-19 01:15 | Inpatient (IN) | payer MEDICARE, OTHER ==
[2017-11-19 01:29] LABS: Hematocrit 45.2 % (37.0-47.0); Hemoglobin 15.3 gm/dL (12.5-16.0); Mean Cell Volume 86.8 fl (78-100); Mean Corpuscular Hemoglobin 29.4 pg (27-31); Mean Corpuscular Hgb Conc 33.8 g/dl (32-36); Mean Platelet Volume 9.4 fl (8-12.5); Neutrophil # 14.6 K/mm3 (1.3-6.0); Neutrophil % 87.8 % (42-75.0); Platelet Count 525 K/mm3 (150-450); Red Blood Count 5.21 M/mm3 (4.2-5.4); Red Cell Distribution Width 13.6 % (11.5-14.0); White Blood Count 16.7 K/mm3 (4.0-10.5)
[2017-11-19] MEDS: NORMAL SALINE 1,000 ML IV SCH ×3 (01:30→03:32)
[2017-11-19] MEDS ORDERED: RINGER'S SOLUTION,LACTATED 1,000 ML IV PRN (01:30)
[2017-11-19] MEDS ORDERED: VANCOMYCIN HCL 1 GM in DEXTROSE 5 % IN WATER 250 ML IV ONE ×2 (01:39)
[2017-11-19] MEDS ORDERED: NOREPINEPHRINE BITARTRATE 4 MG in DEXTROSE 5 % IN WATER 496 ML IV PRN ×4 (01:39→11:54)
[2017-11-19] MEDS ORDERED: PIPERACILLIN SODIUM/TAZOBACTAM 3.375 GM in DEXTROSE 5 % IN WATER 100 ML IV SCH ×2 (01:45)
--- NOTE | 2017-11-19 01:47 | ERNOTE ---
Neuro HPI ER Record Date of Service: 11/19/17 Presenting Symptoms: other - altered mental status Time Seen by Provider: 11/19/17 01:41 Source: EMS Immunizations: IMMUNIZATION HX Immunizations Up to Date Yes History of Influenza Vaccine Yes Hx Pneumococcal Vaccination Yes Allergies/Adverse Reactions: Allergies Allergy/AdvReac Type Severity Reaction Status Date / Time No Known Allergies Allergy Verified 11/02/17 12:43 Home Medications: HOME MEDICATIONS Aspirin [Aspirin Chewable] 81 mg PO DAILY 07/19/12 [Last Taken 09/07/17] Calcium Carbonate/Vitamin D3 [Calcium 600-Vit D3 200 Tablet] 1 ea PO 0700,1100, 1500 07/19/12 [Last Taken 09/07/17 07:00] Multivitamin [Multivitamins] 1 ea PO DAILY 07/19/12 [Last Taken 09/07/17] Rosuvastatin Calcium [Crestor] 20 mg PO HS 07/19/12 [Last Taken 09/06/17] predniSONE [Prednisone] 5 mg PO DAILY 07/19/12 [Last Taken 09/07/17] Alendronate Sodium [Fosamax] 70 mg PO TU 11/23/12 [Last Taken 09/04/17] carBAMazepine [Tegretol] 2 tab PO BID #120 tab 07/13/14 [Last Taken 11/18/17 19: 00] Baclofen 20 mg PO 0700,1100,1500,1900 02/27/16 [Last Taken 11/18/17 19:00] Polyethylene Glycol 3350 [Miralax] 17 gm PO DAILY PRN 04/24/16 [Last Taken 08/29] Acetaminophen [Tylenol] 650 mg PO QID PRN #0 tab 04/28/16 [Last Taken Unknown] Levothyroxine Sodium [Synthroid] 88 mcg PO DAILY 09/07/17 [Last Taken 09/07/17] Atenolol [Tenormin] 25 mg PO DAILY #30 tab 09/12/17 [Last Taken Unknown] gabapentin 800 mg tablet 800 mg PO QID 11/02/17 [Last Taken 11/18/17 19:00] imipramine 25 mg tablet 25 mg PO TID tab 11/02/17 [Last Taken 11/18/17 19:00] methenamine mandelate 1 gram tablet 1 g PO QID 11/02/17 [Last Taken 11/18/17 19: 00] Methadone HCl 5 mg PO DAILY 11/19/17 [Last Taken 11/18/17 08:00] - History of Present Illness Narrative: Patient is a 62-year-old woman with a history of quadriplegia presenting to the emergency room with altered mental status. Brought into the emergency room by EMS who was notified because he was unresponsive. We don't know the onset of her responsiveness.. EMS report up and arrival noted that her heart rate was elevated, greater than 120s and blood pressure 80s over 40s Date (Duration): 11/19/17 Time (Timing): 01:42 Last Date Known Well: 11/19/17 - Character of Deficits Baseline Cognition: Present: alert, oriented x 4 Baseline Gait: Present: unable to walk Associated Symptoms: Reports: decreased responsiveness, unresponsive Review of Systems - Review of Systems Constitutional: Present: no symptoms reported EYE: Present: no symptoms reported ENT: Present: no symptoms reported Respiratory: Present: no symptoms reported Cardiology: Present: no symptoms reported Gastrointestinal/Abdominal: Present: no symptoms reported Genitourinary: Present: no symptoms reported Skin: Present: no symptoms reported Neurological: Present: no symptoms reported Endocrine: Present: no symptoms reported Hematologic/Lymphatic: Present: no symptoms reported Psych: Present: no symptoms reported Medical History (Last Reviewed 11/19/17 @ 02:27 by Liset Barton RN) Vitamin D deficiency (Chronic) Onset Date: Unknown Trigeminal neuralgia (Chronic) Onset Date: Unknown Seborrhea (Chronic) Onset Date: ~07/11/13 Paraplegia (Chronic) Onset Date: ~08/20/11 Osteoporosis (Chronic) Onset Date: Unknown Multiple sclerosis (Chronic) Onset Date: Unknown Keratosis seborrheica (Chronic) Onset Date: ~02/19/14 Hypothyroidism (Chronic) Onset Date: Unknown Hypertension (Chronic) Onset Date: Unknown Hyperlipidemia (Chronic) Onset Date: Unknown Fibrocystic breast disease (Chronic) Onset Date: Unknown Chronic pain syndrome (Chronic) Onset Date: Unknown Chronic indwelling Huddleston catheter (Chronic) Frequent UTI (Chronic) Multiple sclerosis (Chronic) HLD (hyperlipidemia) (Chronic) Hypothyroidism (Chronic) Bronchitis Onset Date: ~12/22/13 Chronic UTI Onset Date: Unknown Mild concentric left ventricular hypertrophy Onset Date: ~07/27/12 Seborrheic keratoses Onset Date: ~07/11/13 Urinary tract infection Onset Date: ~12/22/13 Surgical History: Surgical History (Last Reviewed 11/19/17 @ 02:27 by Liset Barton RN) H/O esophagogastroduodenoscopy Onset Date: ~08/26/02 History of breast biopsy Onset Date: ~05/20/02 History of colonoscopy Onset Date: Unknown History of hysterectomy Onset Date: Unknown History of thyroid surgery Onset Date: ~12/20/05 Family History: Family History (Last Reviewed 11/19/17 @ 02:27 by Liset Barton RN) Brother Kidney stones Father Cancer Grandmother Cancer Sister CVA (cerebral vascular accident) Kidney stones Social History: Preferred Language German Abuse History No History of abuse Psych History No pertinent hx Physical Exam - Physical Exam General Appearance: Present: no apparent distress Head Exam: Present: normal inspection, no evidence of injury Neck: Present: normal inspection, nontender Respiratory: Present: no respiratory distress, normal breath sounds, lungs clear Cardiovascular/Chest: Present: tachycardia Gastrointestinal/Abdominal: Present: normal bowel sounds, nontender, nondistended, soft, other - suprapubic catheter Neurological Exam: Present: alert, oriented, normal mood/affect, no motor/ sensory deficits, 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 - Vital Signs Patient's Vital Signs:: I have reviewed the patient's vital signs. Vital Signs: Vital Signs 11/19/17 01:17 11/19/17 01:31 11/19/17 01:33 Temperature 36.3 C Pulse Rate 112 H 109 H 113 H Respiratory Rate 12 10 L Blood Pressure 86/53 L 82/56 L O2 Sat by Pulse Oximetry 100 100 11/19/17 01:37 Temperature Pulse Rate 113 H Respiratory Rate 8 L Blood Pressure 80/63 L O2 Sat by Pulse Oximetry 100 - EKG EKG: atrial fibrillation EKG read: Reviewed by me EKG Comments: EKG reviewed with atrial fibrillation with rapid ventricular response noted rate of [address] ST changes. This is new compared to a EKG obtained June 2017 - X-Ray X-Ray #1 X-Ray: chest - she appears to have a chest x-ray that is consistent with low lung volumes. She appears to have a cardiomegaly with cephalization of great vessels. There is no pleural effusion. No costo phrenic angle blunting. - CT/Ultrasound CT/Ultrasound Narrative: CT of the head: - Progress/Reassessment Chief Complaint: Altered Mental Status Progress:: Unchanged Progress Note-Subjective: 11/19/17 03:23 Patient is seen and evaluated, presenting via EMS with altered mental status for unknown duration. On arrival she was noted to have a blood pressure 80/40, heart rate in the 120s. She was requiring 5 L of oxygen. Physical examination consistent with decreased responsiveness. EKG reviewed consistent with new onset atrial fibrillation with rapid ventricular rate Has a white count of 16,000, C-reactive protein of 2, lactic acid of 2.2. Chest x-ray reviewed with no remarkable findings. Except for low lung volumes Urinalysis consistent with urinary tract infection. Patient also started on IV fluid with prompt response. Addition she also required presses at some point notably Levophed She was started on vancomycin and Zosyn spectrum antibiotics, broad spectrum antibiotics HospitalistDonna about this patient accepted the transfer - Transfer of Care Expected Disposition: Admit Departure Clinical Impression: Septic shock, Severe sepsis, Alteration consciousness Sepsis Qualifiers: Sepsis type: sepsis due to unspecified organism Qualified Code(s): A41.9 - Sepsis, unspecified organism - Departure Disposition: Short Term Hospital Inpatient Condition: Poor
[2017-11-19 01:50] LABS: Urine Bilirubin Negative (NEGATIVE); Urine Blood 50 /ul (NEGATIVE); Urine Ketone Negative (NEGATIVE); Urine Nitrite Positive (NEGATIVE); Urine Protein 100 mg/dL (NEGATIVE); Urine Urobilinogen Normal (NORMAL)
[2017-11-19 01:51] LABS: Urine Appearance Turbid (CLEAR); Urine Bacteria 4+; Urine Color Yellow; Urine RBC 0-5 /hpf (0-5); Urine WBC >50 /hpf (0-5)
[2017-11-19 02:02] LABS: Troponin I Less than 0.017 ng/ml (0.00-0.10)
[2017-11-19 02:02] LABS: Albumin * 3.9 gm/dl (3.4-5.0); Anion Gap 9.6 mmol/L (6.8-13.8); BUN/Creatinine Ratio 17.3 (9.0-21.6); Bilirubin, Total 0.3 mg/dL (0.0-1.1); Ca. Corrected For Albumin 10.6 mg/dL (8.4-10.2); Calcium * 10.8 mg/dL (7.9-10.9); Carbon Dioxide 30.5 mmol/L (24-32.6); Potassium 4.1 mmol/L (3.4-4.6); Total Protein 7.6 gm/dL (6.2-8.2)
[2017-11-19] MEDS ORDERED: NALOXONE HCL 1 MG/1 ML SYRG ONE (02:03)
[2017-11-19] MEDS ORDERED: NALOXONE HCL 1 MG/1 ML SYRG IV ONE (02:10)
--- NOTE | 2017-11-19 05:27 | HP ---
Chief Complaint - Chief Complaint Date of Service: 11/19/17 Time of Service: 05:26 Chief Complaint: Altered mental status, unresponsive, severe sepsis History of Present Illness: 62 years old female was adm from the [facility] to the Hospital with reports of Altered mental status and unresponsiveness. Information obtained from EMS who was called to the [facility], for stroke like s/s. Due to pt medical state unable to get information and information was obtained from previous records and ER records. EKG revealed A-fib RVR . PMH significant for recurrent UTI (suprapubic catheter), episodes of unresponsiveness with infections ( The most recent was 09/07/2017), GERD, hypertension and multiple sclerosis. While in ER urinalysis reveal UTI, suspected sepsis and sepsis protocol initiated. she was started on aggressive IVF bolus, vancomycin, Zosyn and levophed to maintain SBP. She was hypotensive at 80/40 and placed on levophed. she was unresponsive but was still able to maintain her airway, on adm to the unit she was weaned down to 1L oxygen and spo2 98-100%. Medical History (Last Reviewed 11/19/17 @ 07:05 by Leatha Mayes, MARCELLA) Vitamin D deficiency (Chronic) Onset Date: Unknown Trigeminal neuralgia (Chronic) Onset Date: Unknown Seborrhea (Chronic) Onset Date: ~07/11/13 Paraplegia (Chronic) Onset Date: ~08/20/11 Osteoporosis (Chronic) Onset Date: Unknown Multiple sclerosis (Chronic) Onset Date: Unknown Keratosis seborrheica (Chronic) Onset Date: ~02/19/14 Hypothyroidism (Chronic) Onset Date: Unknown Hypertension (Chronic) Onset Date: Unknown Hyperlipidemia (Chronic) Onset Date: Unknown Fibrocystic breast disease (Chronic) Onset Date: Unknown Chronic pain syndrome (Chronic) Onset Date: Unknown Chronic indwelling Huddleston catheter (Chronic) Frequent UTI (Chronic) Multiple sclerosis (Chronic) HLD (hyperlipidemia) (Chronic) Hypothyroidism (Chronic) Bronchitis Onset Date: ~12/22/13 Chronic UTI Onset Date: Unknown Mild concentric left ventricular hypertrophy Onset Date: ~07/27/12 Seborrheic keratoses Onset Date: ~07/11/13 Urinary tract infection Onset Date: ~12/22/13 Surgical History: Surgical History (Last Reviewed 11/19/17 @ 04:54 by Leatha Mayes RN) H/O esophagogastroduodenoscopy Onset Date: ~08/26/02 History of breast biopsy Onset Date: ~05/20/02 History of colonoscopy Onset Date: Unknown History of hysterectomy Onset Date: Unknown History of thyroid surgery Onset Date: ~12/20/05 Family History: Family History (Last Reviewed 11/19/17 @ 04:55 by Leatha Mayes RN) Brother Kidney stones Father Cancer Grandmother Cancer Sister CVA (cerebral vascular accident) Kidney stones Social History: Patient Lives/Resources [facility] Utilized Preferred Language Fijian Smoking Status Unknown if ever smoked Have you smoked in the past 12 No months Abuse History No History of abuse Psych History No pertinent hx Review Of Systems (GEN) - Review of Systems Generalized/Overall Review: Present: No Symptoms Reported - unable to obtain information due to medical state Immunizations: IMMUNIZATION HX Immunizations Up to Date Yes History of Influenza Vaccine Yes Hx Pneumococcal Vaccination Yes Allergies/Adverse Reactions: Allergies Allergy/AdvReac Type Severity Reaction Status Date / Time No Known Allergies Allergy Verified 11/19/17 04:55 Home Medications: HOME MEDICATIONS Aspirin [Aspirin Chewable] 81 mg PO DAILY 07/19/12 [Last Taken 09/07/17] Calcium Carbonate/Vitamin D3 [Calcium 600-Vit D3 200 Tablet] 1 ea PO 0700,1100, 1500 07/19/12 [Last Taken 09/07/17 07:00] Multivitamin [Multivitamins] 1 ea PO DAILY 07/19/12 [Last Taken 09/07/17] Rosuvastatin Calcium [Crestor] 20 mg PO HS 07/19/12 [Last Taken 09/06/17] predniSONE [Prednisone] 5 mg PO DAILY 07/19/12 [Last Taken 09/07/17] Alendronate Sodium [Fosamax] 70 mg PO TU 11/23/12 [Last Taken 09/04/17] carBAMazepine [Tegretol] 2 tab PO BID #120 tab 07/13/14 [Last Taken 11/18/17 19: 00] Baclofen 20 mg PO 0700,1100,1500,1900 02/27/16 [Last Taken 11/18/17 19:00] Polyethylene Glycol 3350 [Miralax] 17 gm PO DAILY PRN 04/24/16 [Last Taken 08/29] Acetaminophen [Tylenol] 650 mg PO QID PRN #0 tab 04/28/16 [Last Taken Unknown] Levothyroxine Sodium [Synthroid] 88 mcg PO DAILY 09/07/17 [Last Taken 09/07/17] Atenolol [Tenormin] 25 mg PO DAILY #30 tab 09/12/17 [Last Taken Unknown] gabapentin 800 mg tablet 800 mg PO QID 11/02/17 [Last Taken 11/18/17 19:00] imipramine 25 mg tablet 25 mg PO TID tab 11/02/17 [Last Taken 11/18/17 19:00] methenamine mandelate 1 gram tablet 1 g PO QID 11/02/17 [Last Taken 11/18/17 19: 00] Methadone HCl 5 mg PO DAILY 11/19/17 [Last Taken 11/18/17 08:00] Exam - Exam Vital Signs: Vital Signs - Last Taken Temp 36.0 C 11/19/17 04:55 Pulse 104 H 11/19/17 04:55 Resp 8 L 11/19/17 04:55 BP 100/58 11/19/17 04:55 Pulse Ox 100 11/19/17 04:55 Constitutional: Present: Obtunded, Obese ENT Exam: Present: moist mucous membranes, other - unable to control oral secretion, no gag reflex. pupils pinpoint Eye Exam: bilateral eye: normal inspection Neck: Present: full range of motion Back Exam: Present: normal inspection Breasts: Present: Exam deferred Respiratory: Present: chest non-tender, decreased breath sounds, expiration ( prolonged) Cardiovascular/Chest: Present: normal peripheral pulses, no chest tenderness, no edema Peripheral Pulses: dorsalis-pedis (R): 2+, dorsalis-pedis (L): 2+ Abdomen: Present: Normal bowel sounds, soft, nontender, nondistended, other - suprapubic catheter with mild erythema and no drainage at site of insertion. /Rectal: Present: Exam deferred Extremity: Present: non-tender, no calf tenderness Skin Exam: Present: warm/dry, pallor Neurologic: Present: sensory deficit Appearance: Present: appropriate appearance Eye contact: Present: cooperative, good eye contact Thoughts: Present: normal thought pattern Diagnostic Studies: Abnormal Lab Results 11/19/17 11/19/17 11/19/17 Range/Units 01:18 01:25 01:25 WBC 16.7 H (4.0-10.5) K/mm3 Plt Count 525 H (150-450) K/mm3 Immature Gran % (Auto) 0.50 H (0.001-0.429) % Immature Gran # (Auto) 0.08 H (0.000-0.0310) K/mm3 Neutrophils % 87.8 H (42-75.0) % Lymphocytes % 6.2 L (20-51) % Neutrophils # 14.6 H (1.3-6.0) K/mm3 Lymphocytes # 1.04 L (1.5-3.5) k/mm3 pO2 (83.0-108.0) mmHg Base Excess (-2.0-3.0) mmol/L ABG O2 Sat (Measured) (94.0-98.0) % Sodium 127 L (132-142) mmol/L Plasma Sodium 127 L (130-142) mmol/L Chloride 91 L (97-106) mmol/L Lactic Acid, Venous 2.2 H* (0.4-2.0) mmol/L Calcium Adj for Albumin 10.6 H (8.4-10.2) mg/dL Alkaline Phosphatase 222 H (50-170) U/L C-Reactive Prot, Quant (0.0-0.9) mg/dL B-Natriuretic Peptide 2124 H (5-205) pg/mL Urine Protein (NEGATIVE) mg/dL Urine Blood (NEGATIVE) /ul Urine Nitrate (NEGATIVE) Prot Sulfosalicylic Acd (0) mg/dL Ur Leukocyte Esterase (NEGATIVE) /ul Urine WBC (0-5) /hpf Ur Epithelial Cells (0-5) /hpf Urine Bacteria (NONE) 11/19/17 11/19/17 11/19/17 Range/Units 01:30 01:36 01:42 WBC (4.0-10.5) K/mm3 Plt Count (150-450) K/mm3 Immature Gran % (Auto) (0.001-0.429) % Immature Gran # (Auto) (0.000-0.0310) K/mm3 Neutrophils % (42-75.0) % Lymphocytes % (20-51) % Neutrophils # (1.3-6.0) K/mm3 Lymphocytes # (1.5-3.5) k/mm3 pO2 188.7 H (83.0-108.0) mmHg Base Excess -2.1 L (-2.0-3.0) mmol/L ABG O2 Sat (Measured) 99.3 H (94.0-98.0) % Sodium (132-142) mmol/L Plasma Sodium (130-142) mmol/L Chloride (97-106) mmol/L Lactic Acid, Venous (0.4-2.0) mmol/L Calcium Adj for Albumin (8.4-10.2) mg/dL Alkaline Phosphatase (50-170) U/L C-Reactive Prot, Quant 2.0 H (0.0-0.9) mg/dL B-Natriuretic Peptide (5-205) pg/mL Urine Protein 100 H (NEGATIVE) mg/dL Urine Blood 50 H (NEGATIVE) /ul Urine Nitrate Positive H (NEGATIVE) Prot Sulfosalicylic Acd 4+ H (0) mg/dL Ur Leukocyte Esterase 500 H (NEGATIVE) /ul Urine WBC >50 H (0-5) /hpf Ur Epithelial Cells 5-10 H (0-5) /hpf Urine Bacteria 4+ H (NONE) Laboratory Results WBC 16.7 K/mm3 (4.0-10.5) H 11/19/17 01:25 RBC 5.21 M/mm3 (4.2-5.4) 11/19/17 01:25 Hgb 15.3 gm/dL (12.5-16.0) 11/19/17 01:25 Hct 45.2 % (37.0-47.0) 11/19/17 01:25 MCV 86.8 fl (78-100) 11/19/17 01:25 MCH 29.4 pg (27-31) 11/19/17 01:25 MCHC 33.8 g/dl (32-36) 11/19/17 01:25 RDW 13.6 % (11.5-14.0) 11/19/17 01:25 Plt Count 525 K/mm3 (150-450) H 11/19/17 01:25 MPV 9.4 fl (8-12.5) 11/19/17 01:25 Immature Gran % (Auto) 0.50 % (0.001-0.429) H 11/19/17 01:25 Immature Gran # (Auto) 0.08 K/mm3 (0.000-0.0310) H 11/19/17 01:25 Neutrophils % 87.8 % (42-75.0) H 11/19/17 01:25 Lymphocytes % 6.2 % (20-51) L 11/19/17 01:25 Monocytes % 4.6 % (0.0-9) 11/19/17 01:25 Eosinophils % 0.4 % (0.0-3.0) 11/19/17 01:25 Basophils % 0.5 % (0.0-1.0) 11/19/17 01:25 Nucleated RBC % 0.0 k/mm3 (0-1) 11/19/17 01:25 Neutrophils # 14.6 K/mm3 (1.3-6.0) H 11/19/17 01:25 Lymphocytes # 1.04 k/mm3 (1.5-3.5) L 11/19/17 01:25 Monocytes # 0.8 k/mm3 (0.0-1.0) 11/19/17 01:25 Eosinophils # 0.1 k/mm3 (0.0-0.7) 11/19/17 01:25 Absolute Basophils 0.1 k/mm3 (0.0-0.1) 11/19/17 01:25 pCO2 38.8 mmHg (32.0-45.0) 11/19/17 01:36 pO2 188.7 mmHg (83.0-108.0) H 11/19/17 01:36 HCO3 22.6 mmol/L (21.0-28.0) 11/19/17 01:36 Total CO2 23.8 mmol/L (19.0-24.0) 11/19/17 01:36 Base Excess -2.1 mmol/L (-2.0-3.0) L 11/19/17 01:36 ABG pH 7.38 (7.35-7.45) 11/19/17 01:36 ABG O2 Sat (Measured) 99.3 % (94.0-98.0) H 11/19/17 01:36 Sodium 127 mmol/L (132-142) L 11/19/17 01:25 Plasma Sodium 127 mmol/L (130-142) L 11/19/17 01:25 Potassium 4.1 mmol/L (3.4-4.6) 11/19/17 01:25 Chloride 91 mmol/L (97-106) L 11/19/17 01:25 Carbon Dioxide 30.5 mmol/L (24-32.6) 11/19/17 01:25 Anion Gap 9.6 mmol/L (6.8-13.8) 11/19/17 01:25 BUN 14 mg/dL (3-23) D 11/19/17 01:25 Creatinine 0.81 mg/dL (0.4-1.4) 11/19/17 01:25 Est GFR (Non-Af Amer) 76 mL/min (60-130) D 11/19/17 01:25 BUN/Creatinine Ratio 17.3 (9.0-21.6) 11/19/17 01:25 Random Glucose 105 mg/dL (70-110) 11/19/17 01:25 Lactic Acid, Venous 2.2 mmol/L (0.4-2.0) H* 11/19/17 01:18 Calcium 10.8 mg/dL (7.9-10.9) 11/19/17 01:25 Calcium Adj for Albumin 10.6 mg/dL (8.4-10.2) H 11/19/17 01:25 Total Bilirubin 0.3 mg/dL (0.0-1.1) 11/19/17 01:25 AST 24 U/L (0-48) 11/19/17 01:25 ALT 28 U/L (19-67) 11/19/17 01:25 Alkaline Phosphatase 222 U/L (50-170) H 11/19/17 01:25 Troponin I Less than 0.017 ng/ml (0.00-0.10) 11/19/17 01:30 C-Reactive Prot, Quant 2.0 mg/dL (0.0-0.9) H 11/19/17 01:30 B-Natriuretic Peptide 2124 pg/mL (5-205) H 11/19/17 01:25 Total Protein 7.6 gm/dL (6.2-8.2) 11/19/17 01:25 Albumin 3.9 gm/dl (3.4-5.0) 11/19/17 01:25 Procalcitonin 0.16 ng/mL (0.05-0.50) 11/19/17 01:25 Urine Color Yellow 11/19/17 01:42 Urine Appearance Turbid (CLEAR) 11/19/17 01:42 Urine pH 6.0 pH (5.0-7.0) 11/19/17 01:42 Ur Specific Roxie 1.020 SP.GR. (1.005-1.010) 11/19/17 01:42 Urine Protein 100 mg/dL (NEGATIVE) H 11/19/17 01:42 Urine Glucose (UA) Negative mg/dL (NEGATIVE) 11/19/17 01:42 Urine Ketones Negative mg/dL (NEGATIVE) 11/19/17 01:42 Urine Blood 50 /ul (NEGATIVE) H 11/19/17 01:42 Urine Nitrate Positive (NEGATIVE) H 11/19/17 01:42 Urine Bilirubin Negative mg/dl (NEGATIVE) 11/19/17 01:42 Prot Sulfosalicylic Acd 4+ mg/dL (0) H 11/19/17 01:42 Urine Urobilinogen Normal EU/dl (NORMAL) 11/19/17 01:42 Ur Leukocyte Esterase 500 /ul (NEGATIVE) H 11/19/17 01:42 Urine RBC 0-5 /hpf (0-5) 11/19/17 01:42 Urine WBC >50 /hpf (0-5) H 11/19/17 01:42 Ur Epithelial Cells 5-10 /hpf (0-5) H 11/19/17 01:42 Urine Bacteria 4+ (NONE) H 11/19/17 01:42 Urine Culture Comments Culture to follow 11/19/17 01:42 CT head: No acute intra-cranial abnormality CXR: consistent with low lung volumes, cardiomegaly and no pleural effusion. Assessment/Plan - Assessment/Plan (1) Sepsis Assessment: IVF bolus given and continue with Normal saline 126ml/hr continue with sepsis protocol on adm lactic acid 2.2, WBC 16.7, BP 80/40 and HR 120 Problem: Acute Qualifiers: Sepsis type: sepsis due to unspecified organism Qualified Code(s): A41.9 - Sepsis, unspecified organism (2) Severe sepsis Problem: Acute (3) Alteration consciousness Problem: Acute (4) Paraplegia Problem: Chronic (5) Multiple sclerosis Problem: Chronic (6) Hypothyroidism Problem: Chronic (7) Hypertension Problem: Chronic Qualifiers: Hypertension type: essential hypertension Qualified Code(s): I10 - Essential (primary) hypertension (8) Hyperlipidemia Problem: Chronic (9) Chronic indwelling Huddleston catheter Problem: Chronic (10) GERD (gastroesophageal reflux disease) Problem: Chronic Qualifiers: Esophagitis presence: without esophagitis Qualified Code(s): K21.9 - Gastro -esophageal reflux disease without esophagitis (11) Atrial fibrillation with rapid ventricular response Problem: Chronic
[2017-11-19] MEDS: NORMAL SALINE 1,000 ML IV PRN ×3 (06:37→16:14)
--- NOTE | 2017-11-19 07:08 | PN ---
Progess Note - Interim Date: 11/19/17 Time: 07:01 Narrative: 11/19/17 07:01 Pt. with increased secretions, having troubles maintaining airway due to her MS and sepsis. She remained unresponsive even to painful stimuli and had no gag reflex. Pt. was intubated and is currently being maintained on vent settings of 50% FIO2, RR 16, PEEP 5 Tv of 400ml. Blood gas is pending. Pt. remains unresponsive to painful stimuli when see this am. PE is unremarkable otherwise, including area around suprapubic cath is minimally erythematous with slight brownish discharge, o/w no other issues noted. A/P: UTI with sepsis - currently on sepsis protocol. Has received 2 liters NS bolus and is currently on NS 126ml/hr. but needing to have levophed currently to keep SBP in the 110's. Will wean this as tolerated. Pt. received dose of vanco and zosyn in ER. consider change to cefepime given previous cultures and sensitivities. MS, currently unresponsive and trouble maintaining airway. Currently intubated to control airway and maintain pH. Will add propofol if she begins to wake up. Hyponatremia: due to infection most likely. Normal baseline is in the 130's. will follow. continue NS for now. 11/19/17 17:03
--- NOTE | 2017-11-19 07:58 | PN ---
Progess Note - Interim Date: 11/19/17 Time: 05:45 Narrative: 11/19/17 During the course of the shift pt was observed to not able to control increased oral secretions, safely maintain her airway and had no gag reflex. She was intubated and ABG pending. She remains unresponsive to tactile or painful stimuli. Will continue with sepsis protocol and IVF antibiotics.Attending and oncall physician was made aware of pt changes.
[2017-11-19] MEDS ORDERED: CHLORHEXIDINE GLUCONATE 15 ML UDC MM SCH ×2 (09:00→16:00)
[2017-11-19 09:07] LABS: Hematocrit 40.4 % (37.0-47.0); Hemoglobin 13.7 gm/dL (12.5-16.0); Mean Corpuscular Hemoglobin 29.8 pg (27-31); Mean Corpuscular Hgb Conc 33.9 g/dl (32-36); Neutrophil # 16.5 K/mm3 (1.3-6.0); Neutrophil % 88.8 % (42-75.0); Platelet Count 385 K/mm3 (150-450); Red Blood Count 4.59 M/mm3 (4.2-5.4); Red Cell Distribution Width 13.8 % (11.5-14.0); White Blood Count 18.5 K/mm3 (4.0-10.5)
[2017-11-19 09:14] LABS: Anion Gap 10.9 mmol/L (6.8-13.8); Bilirubin, Total 0.4 mg/dL (0.0-1.1); Ca. Corrected For Albumin 8.8 mg/dL (8.4-10.2); Calcium * 8.3 mg/dL (7.9-10.9); Carbon Dioxide 28.1 mmol/L (24-32.6); Total Protein 6.2 gm/dL (6.2-8.2)
[2017-11-19] MEDS ORDERED: NORMAL SALINE 1,000 ML IV ONE (12:11)
[2017-11-19] MEDS: PROPOFOL 1,000 MG/100 ML PIGGYBACK IV PRN ×2 (12:45→20:45)
[2017-11-19] MEDS: ALBUTEROL SULFATE 2.5 MG/0.5 ML VIAL.NEB IH SCH ×4 (13:00→22:13)
[2017-11-19] MEDS: CEFEPIME HCL 1 GM in DEXTROSE 5 % IN WATER 100 ML IV SCH ×2 (17:17)
[2017-11-20] MEDS: NORMAL SALINE 1,000 ML IV PRN ×2 (00:10→08:33)
[2017-11-20] MEDS: PROPOFOL 1,000 MG/100 ML PIGGYBACK IV PRN ×2 (01:31→05:36)
[2017-11-20] MEDS: ALBUTEROL SULFATE 2.5 MG/0.5 ML VIAL.NEB IH SCH ×5 (02:03→19:07)
[2017-11-20] MEDS ORDERED: VANCOMYCIN HCL 1 GM in DEXTROSE 5 % IN WATER 250 ML IV SCH ×2 (03:00)
[2017-11-20] MEDS: CEFEPIME HCL 1 GM in DEXTROSE 5 % IN WATER 100 ML IV SCH ×4 (04:59→16:32)
[2017-11-20 06:19] LABS: Hematocrit 32.7 % (37.0-47.0); Hemoglobin 10.9 gm/dL (12.5-16.0); Mean Cell Volume 87.2 fl (78-100); Mean Corpuscular Hemoglobin 29.1 pg (27-31); Mean Corpuscular Hgb Conc 33.3 g/dl (32-36); Mean Platelet Volume 9.5 fl (8-12.5); Neutrophil # 8.6 K/mm3 (1.3-6.0); Neutrophil % 78.8 % (42-75.0); Platelet Count 332 K/mm3 (150-450); Red Blood Count 3.75 M/mm3 (4.2-5.4)
--- NOTE | 2017-11-20 06:50 | PN ---
Subjective - Date and Time Seen Date: 11/20/17 Time: 06:37 Subjective Narrative: Pt. able to be weaned off levophed, but propofol had to be increased due to increased agitation and fighting the vent. No other concerns reported this am. Objective - Review of Systems Generalized/Overall Review: Reports: No Symptoms Reported EENTM: Reports: No Symptoms Reported Respiratory: Reports: Other - on ventilator Cardiac: Reports: No Symptoms Reported Abdominal: Reports: No Symptoms Reported Genitourinary Symptoms: Reports: No Symptoms Reported Musculoskeletal Complaints: Reports: No Symptoms Reported Neurological: Reports: No Symptoms Reported Skin: Reports: No Symptoms Reported Endocrine: Reports: No Symptoms Reported - Vitals Vitals: Last Vital Signs Temp 37.0 C 11/20/17 05:00 Pulse 92 11/20/17 06:09 Resp 16 11/20/17 06:09 BP 109/56 11/20/17 05:58 Pulse Ox 100 11/20/17 05:59 - Abnormal Lab Findings Abnormal Lab Findings: Abnormal Lab Results 11/19/17 11/19/17 11/19/17 Range/Units 08:58 08:58 11:50 WBC 18.5 H (4.0-10.5) K/mm3 RBC (4.2-5.4) M/mm3 Hgb (12.5-16.0) gm/dL Hct (37.0-47.0) % Immature Gran % (Auto) (0.001-0.429) % Immature Gran # (Auto) 0.08 H (0.000-0.0310) K/mm3 Neutrophils % 88.8 H (42-75.0) % Lymphocytes % 2.8 L (20-51) % Neutrophils # 16.5 H (1.3-6.0) K/mm3 Lymphocytes # 0.51 L (1.5-3.5) k/mm3 Monocytes # 1.4 H (0.0-1.0) k/mm3 pO2 169.3 H (83.0-108.0) mmHg HCO3 (21.0-28.0) mmol/L Base Excess -2.7 L (-2.0-3.0) mmol/L ABG O2 Sat (Measured) 99.1 H (94.0-98.0) % Random Glucose 126 H (70-110) mg/dL Albumin 3.0 L (3.4-5.0) gm/dl 11/19/17 11/20/17 Range/Units 14:50 05:34 WBC 11.0 H D (4.0-10.5) K/mm3 RBC 3.75 L (4.2-5.4) M/mm3 Hgb 10.9 L (12.5-16.0) gm/dL Hct 32.7 L (37.0-47.0) % Immature Gran % (Auto) 0.60 H (0.001-0.429) % Immature Gran # (Auto) 0.07 H (0.000-0.0310) K/mm3 Neutrophils % 78.8 H (42-75.0) % Lymphocytes % 9.9 L (20-51) % Neutrophils # 8.6 H (1.3-6.0) K/mm3 Lymphocytes # 1.09 L (1.5-3.5) k/mm3 Monocytes # (0.0-1.0) k/mm3 pO2 113.1 H (83.0-108.0) mmHg HCO3 20.8 L (21.0-28.0) mmol/L Base Excess -4.1 L (-2.0-3.0) mmol/L ABG O2 Sat (Measured) (94.0-98.0) % Random Glucose (70-110) mg/dL Albumin (3.4-5.0) gm/dl - EKG/Xray Findings EKG: NSR - Exam Constitutional: Present: No distress, Obtunded Neck: Present: supple Respiratory: Present: lungs clear, normal breath sounds, no respiratory distress Cardiovascular/Chest: Present: normal peripheral pulses, regular rate, rhythm Abdomen: Present: Normal bowel sounds, soft, nontender, nondistended, no rebound tenderness, no hepatospenomegaly Extremity: Present: no pedal edema, no calf tenderness Skin Exam: Present: normal color Assessment/Plan - Problems/Diagnosis (1) Ventilator dependence Problem: Acute Narrative: given her altered MS, septic shock and her MS (multiple sclerosis) protecting her airway was vital. Will see, given her improved BP's and vitals if we can't wean her off vent this am. (2) Alteration consciousness Problem: Acute (3) Sepsis Problem: Acute Qualifiers: Sepsis type: sepsis due to unspecified organism Narrative: cultures still pending, but abx tx appears to be appropriate. (4) Septic shock Problem: Acute Narrative: pt. off pressors, appears to be holding own. will continue cefepime as WBC is improved this am and she appears to be stabilizing on this abx. previous cultures showed sensitivity to this abx. given her sepsis most likely is from UTI and is most likely Gram negative due to hypotension/septic shock, feel this is an appropriate choice and it does appear to be working. (5) Atrial fibrillation with rapid ventricular response Problem: Acute Narrative: appears to have resolved. will repeat EKG this am, also repeat trop I to be sure cause was sepsis/dehydration and not cardiac in nature. (6) Multiple sclerosis Problem: Chronic Narrative: puts her at higher risk for recurrent UTI's and severe infections from this. (7) Neurogenic bladder Problem: Chronic Narrative: with suprapubic catheter. catheter recently changed. urine was very dark until 3rd IV bolus given. (8) Discharge planning issues Problem: Acute Narrative: given how sick she was when she arrived and all that was needed to keep her alive, believe that she will be here at least 3-4more days, depending on how rapidly things improve for her. Given her recurrent UTI's, I believe it is appropriate to discharge her on a prophylactic abx regimen, though this does increase the risk of developing a resistent bacteria, which is why it wasn't done prior to this.
[2017-11-20] MEDS: CHLORHEXIDINE GLUCONATE 15 ML UDC MM SCH ×2 (07:49→09:04)
[2017-11-20] MEDS: MUPIROCIN 22 APPL TUBE TP SCH ×2 (09:05→20:18)
[2017-11-20] MEDS: ENOXAPARIN SODIUM 40 MG/0.4 ML SYRG SC SCH (09:05)
[2017-11-20] MEDS ORDERED: ATENOLOL 25 MG TABLET PO SCH (11:45)
[2017-11-20] MEDS: predniSONE 5 MG TABLET PO SCH (12:01)
[2017-11-20] MEDS: METHADONE HCL 10 MG TABLET PO SCH (12:01)
[2017-11-20] MEDS ORDERED: DILTIAZEM HCL 5 MG/ML VIAL IV STA (12:22)
[2017-11-20] MEDS: IMIPRAMINE HCL 25 MG TABLET PO SCH ×2 (13:03→16:33)
[2017-11-20] MEDS: GABAPENTIN 400 MG CAPSULE PO SCH ×3 (13:03→20:19)
[2017-11-20] MEDS: METHENAMINE MANDELATE 1 GM TABLET PO SCH ×3 (13:03→20:18)
--- NOTE | 2017-11-20 16:47 | PN ---
Progess Note - Interim Date: 11/20/17 Time: 16:38 Narrative: 11/20/17 16:38 Pt. states she is feeling better though still very weak and has a ST. Nursing worried earlier today about her HR going into the 160's in Afib with RVR, though rate came down on it's own. BP's were labile earlier today so IVF were d /c'd. A/P Sepsis with septic shock doing better. Continue cefepime and continue off IVF and pressors. Afib with RVR appears to be resolved but due to just coming off vent and wanting close monitoring will keep her in SCU status at least overnight for close monitoring. She is still very fragile health kerr. Ventilator to protect airway due to decreased consciousness: pt. successfully weaned off the vent in ~ 24hrs. so PPI was not initiated. Will continue to monitor and do O2. via NC to keep sats in at least the mid 90's. Recurrent UTI's with indwelling suprapubic catheter and neurogenic bladder. She is colonized with bacteria, but still gets septic from other bacteria. Question is whether flushing the catheter daily with 120ml of NS and then letting bladder drain vs. prophylactic daily abx is best tx. Because colonization is most likely pseudomonas, Acetic acid wash would be most appropriate, but could possibly cause bladder spasms, so may start with NS flushes first and see if this alone is successful. If not would do 0.5% acetic acid solution daily 2x/wk.
[2017-11-20] MEDS: ROSUVASTATIN CALCIUM 20 MG TABLET PO SCH (20:18)
[2017-11-20] MEDS: carBAMazepine 200 MG TABLET PO SCH (20:19)
[2017-11-20] MEDS ORDERED: METOPROLOL SUCCINATE 50 MG TABLET.SA PO SCH (21:15)
[2017-11-20] MEDS ORDERED: NORMAL SALINE 1,000 ML IV PRN (23:23)
[2017-11-21] MEDS: LEVALBUTEROL HCL 1.25 MG/3 ML AMPUL IH SCH ×2 (00:03→06:12)
[2017-11-21 01:11] LABS: Anion Gap 11.7 mmol/L (6.8-13.8); BUN/Creatinine Ratio 5.7 (9.0-21.6); Calcium * 7.5 mg/dL (7.9-10.9); Carbon Dioxide 24.2 mmol/L (24-32.6); Estimated Creat Clear 154.9; Potassium 2.9 mmol/L (3.4-4.6)
[2017-11-21] MEDS ORDERED: POTASSIUM CHLORIDE 20 MEQ TABLET.SA PO ONE (01:33)
[2017-11-21] MEDS: CEFEPIME HCL 1 GM in DEXTROSE 5 % IN WATER 100 ML IV SCH ×2 (04:47)
[2017-11-21 07:50] LABS: Hematocrit 31.4 % (37.0-47.0); Hemoglobin 10.7 gm/dL (12.5-16.0); Mean Cell Volume 88.2 fl (78-100); Mean Corpuscular Hemoglobin 30.1 pg (27-31); Mean Corpuscular Hgb Conc 34.1 g/dl (32-36); Neutrophil # 6.8 K/mm3 (1.3-6.0); Neutrophil % 72.2 % (42-75.0); Platelet Count 319 K/mm3 (150-450); Red Blood Count 3.56 M/mm3 (4.2-5.4); Red Cell Distribution Width 14.1 % (11.5-14.0); White Blood Count 9.3 K/mm3 (4.0-10.5)
[2017-11-21 07:54] LABS: Anion Gap 10.1 mmol/L (6.8-13.8); BUN/Creatinine Ratio 5.6 (9.0-21.6); Calcium * 7.4 mg/dL (7.9-10.9); Estimated Creat Clear 150.6; Potassium 4.1 mmol/L (3.4-4.6)
--- NOTE | 2017-11-21 08:03 | PN ---
Subjective - Date and Time Seen Date: 11/21/17 Time: 07:49 Subjective Narrative: Pt. went back into Afib with RVR last pm, with labs showing K of 2.9 and BP's into the 90's. Metoprolol 50mg ER given without improvement in HR, Oral K of 80meq given, IVF restarted and albuterol changed to xopenex with pt. Afib resolving by this am. Pt. has no complaints this am except for swelling in her hands and feet. Objective - Review of Systems Generalized/Overall Review: Reports: Weakness. Denies: Chills, Fever EENTM: Reports: No Symptoms Reported Respiratory: Reports: No Symptoms Reported Cardiac: Reports: Edema. Denies: Chest Pain Abdominal: Reports: No Symptoms Reported Musculoskeletal Complaints: Reports: No Symptoms Reported Neurological: Reports: Weakness Skin: Reports: No Symptoms Reported Endocrine: Reports: No Symptoms Reported - Vitals Vitals: Last Vital Signs Temp 36.5 C 11/21/17 07:00 Pulse 86 11/21/17 07:31 Resp 17 11/21/17 07:00 BP 111/56 11/21/17 07:31 Pulse Ox 100 11/21/17 07:00 - Abnormal Lab Findings Abnormal Lab Findings: Abnormal Lab Results 11/20/17 11/20/17 Range/Units 08:22 23:59 pO2 128.3 H (83.0-108.0) mmHg HCO3 20.1 L (21.0-28.0) mmol/L Base Excess -4.3 L (-2.0-3.0) mmol/L ABG O2 Sat (Measured) 98.5 H (94.0-98.0) % Potassium 2.9 L D (3.4-4.6) mmol/L BUN 2 L D (3-23) mg/dL Creatinine 0.35 L (0.4-1.4) mg/dL Est GFR (Non-Af Amer) 200 H D (60-130) mL/min BUN/Creatinine Ratio 5.7 L (9.0-21.6) Calcium 7.5 L (7.9-10.9) mg/dL - EKG/Xray Findings EKG: NSR - Exam Constitutional: Present: Alert, Oriented x3, Cooperative, No distress ENT Exam: Present: hearing grossly normal Respiratory: Present: lungs clear, normal breath sounds, no respiratory distress , no accessory muscle use Cardiovascular/Chest: Present: regular rate, rhythm, no murmur Extremity: Present: other - edema of sarai hands. Skin Exam: Present: normal color Neurologic: Present: normal mood/affect, oriented x 3 Appearance: Present: appropriate appearance, appropriate insight, neat Eye contact: Present: cooperative, good eye contact Thoughts: Present: normal thought pattern, no apparent hallucination Assessment/Plan - Problems/Diagnosis (1) Ventilator dependence Problem: Resolved (2) Alteration consciousness Problem: Resolved (3) Sepsis Problem: Acute Qualifiers: Sepsis type: Escherichia coli Qualified Code(s): A41.51 - Sepsis due to Escherichia coli [E. coli] Narrative: pt. doing well on the cefepime and culture shows sensitivity to this and to cefuroxime. will change to cefuroxime 500mg po bid to monitor continued efficacy with plans to d/c on this med. (4) Septic shock Problem: Acute Narrative: still having some residual issues with BP's. will continue IVF for now. change her atenolol to just metoprolol for more rate control and less BP effect. (5) Atrial fibrillation with rapid ventricular response Problem: Acute Narrative: seems to be paraxysmal maybe volume issue vs meds she's on. Will decrease imirpamine to 25mg BID, change to metoprolol from atenolol. consider other med changes or stoppages. Hopefully stopping the albuterol will also help with this. continue IVF for now. Last TSH. november 02 was WNL. Continue on Telemetry for now. (6) Multiple sclerosis Problem: Chronic (7) Neurogenic bladder Problem: Chronic Narrative: continue, but will have NH flush daily to hopefully prevent recurrence of her UTI and sepsis. she is at high risk for repeat infections as with her MS she most likely doesn't hydrate well enough and her bladder doesn't flush or empty well, plus with the indwelling catheter, this puts her at high risk for repeat infections. Because she already has some resistant bacteria on cultures, prophylactic abx will only increase risks for furthering this. (8) Discharge planning issues Problem: Acute Narrative: hopeully home in a couple days, depending on her HR, BP's, K levels, response to oral abx. (9) Hypokalemia Problem: Acute Narrative: most likely due to fluid shifts and the amount of fluids we gave her. Will monitor. May add KCL to IVF to help maintain levels if we continue fluids.
[2017-11-21] MEDS: ENOXAPARIN SODIUM 40 MG/0.4 ML SYRG SC SCH (08:10)
[2017-11-21] MEDS: LEVOTHYROXINE SODIUM 88 MCG TABLET PO SCH (08:10)
[2017-11-21] MEDS: MUPIROCIN 22 APPL TUBE TP SCH ×2 (08:10→20:24)
[2017-11-21] MEDS: METHENAMINE MANDELATE 1 GM TABLET PO SCH ×4 (08:11→20:26)
[2017-11-21] MEDS: METOPROLOL SUCCINATE 50 MG TABLET.SA PO SCH (08:11)
[2017-11-21] MEDS: predniSONE 5 MG TABLET PO SCH (08:12)
[2017-11-21] MEDS: IMIPRAMINE HCL 25 MG TABLET PO SCH ×2 (08:12→20:26)
[2017-11-21] MEDS: carBAMazepine 200 MG TABLET PO SCH ×2 (08:12→20:36)
[2017-11-21] MEDS: GABAPENTIN 400 MG CAPSULE PO SCH ×4 (08:12→20:24)
[2017-11-21] MEDS: METHADONE HCL 10 MG TABLET PO SCH (08:13)
[2017-11-21] MEDS: CEFUROXIME AXETIL 500 MG TABLET PO SCH ×2 (08:25→20:23)
[2017-11-21] MEDS: POTASSIUM CHLORIDE 40 MEQ in NORMAL SALINE 1,000 ML IV SCH ×2 (08:25→20:03)
[2017-11-21] MEDS: ROSUVASTATIN CALCIUM 20 MG TABLET PO SCH (20:23)
[2017-11-22 05:31] LABS: Anion Gap 11.8 mmol/L (6.8-13.8); BUN/Creatinine Ratio 3.2 (9.0-21.6); Calcium * 8.1 mg/dL (7.9-10.9); Carbon Dioxide 25.8 mmol/L (24-32.6); Estimated Creat Clear 174.8; Potassium 4.6 mmol/L (3.4-4.6)
--- NOTE | 2017-11-22 07:16 | DS ---
(1) Ventilator dependence Problem: Resolved (2) Alteration consciousness Problem: Resolved (3) Sepsis Problem: Acute Qualifiers: Sepsis type: Escherichia coli Qualified Code(s): A41.51 - Sepsis due to Escherichia coli [E. coli] (4) Septic shock Problem: Acute (5) Atrial fibrillation with rapid ventricular response Problem: Acute (6) Multiple sclerosis Problem: Chronic (7) Neurogenic bladder Problem: Chronic (8) Discharge planning issues Problem: Acute (9) Hypokalemia Problem: Acute Description of Stay: Pt. admitted in septic shock due to UTI. She required 3 liters of NS bolus, NS at 126ml/hr and levophed to maintain SBP's in the 100's. She required this for at least 24hrs and was also intubated due to obtunded state and no gag reflex and declining O2. sats, with definite concerns for protecting the airway. She received vanc and zosyn in the ER and was placed on cefepime 1gm q12h for her infection, for which her WBC went from 16 to 11 on HD#2 and then normalized after that. Her pH on her ABG stabilized and her BP stabilized on HD#2 and she was able to be easily weaned off the vent and levophed, maintaining her BP's with continued fluids. Her UCx grew out E. coli, sensitive to cefepime and to cefuroxime, so she was changed to cefuroxime 500mg po bid and cont. to improve on this oral regimen. Her K did drop to 2.9 and was restored with oral and IV KCL. K at time of discharge was 4.6. She was in Afib at time of admission, but seemed to revert back to NSR after fluid bolus, but was in and out of afib the first couple days here. Believe some of this was her sepsis, but did adjust her medications from atenolol to metoprolol for more rate control and less BP effect and decreased her imipramine to bid dosing. no other changes at this time were done, but she did remain in NSR for past 24hrs. We will d/c back to the [facility] with med changes as listed on discharge med list and with recommendation to do daily flushes of her catheter with 120 ml of NS. Hopefully this will decrease risk for additional infections and readmission. due to her MS and weakened state, PT and OT may be beneficial. She does have significant edema in her extremities but feel this will improve as her infection improves and resolves and the body gets rid of 3rd spaced fluid. She was MRSA positive in her nares and tx with mupirocin bid sarai nares was initiated and will need to be continued for 3 more days. Procedures Performed: none Results and Findings: Pending Mircobiology Results 11/19/17 01:54 Blood Blood Culture - Preliminary NO GROWTH AFTER 48 HOURS 11/19/17 01:25 Blood Blood Culture - Preliminary NO GROWTH AFTER 48 HOURS Lab Pending Results 11/19/17 01:18: Lactic Acid, Venous 2.2 H* 11/19/17 01:25: WBC 16.7 H, RBC 5.21, Hgb 15.3, Hct 45.2, MCV 86.8, MCH 29.4, MCHC 33.8, RDW 13.6, Plt Count 525 H, MPV 9.4, Immature Gran % (Auto) 0.50 H, Immature Gran # (Auto) 0.08 H, Neutrophils % 87.8 H, Lymphocytes % 6.2 L, Monocytes % 4.6, Eosinophils % 0.4, Basophils % 0.5, Nucleated RBC % 0.0, Neutrophils # 14.6 H, Lymphocytes # 1.04 L, Monocytes # 0.8, Eosinophils # 0.1, Absolute Basophils 0.1 11/19/17 01:25: Sodium 127 L, Plasma Sodium 127 L, Potassium 4.1, Chloride 91 L , Carbon Dioxide 30.5, Anion Gap 9.6, BUN 14 D, Creatinine 0.81, Est GFR (Non- Af Amer) 76 D, BUN/Creatinine Ratio 17.3, Random Glucose 105, Calcium 10.8, Calcium Adj for Albumin 10.6 H, Total Bilirubin 0.3, AST 24, ALT 28, Alkaline Phosphatase 222 H, B-Natriuretic Peptide 2124 H, Total Protein 7.6, Albumin 3.9 11/19/17 01:25: Procalcitonin 0.16 11/19/17 01:30: Troponin I Less than 0.017, C-Reactive Prot, Quant 2.0 H 11/19/17 01:36: pCO2 38.8, pO2 188.7 H, HCO3 22.6, Total CO2 23.8, Base Excess - 2.1 L, ABG pH 7.38, ABG O2 Sat (Measured) 99.3 H 11/19/17 01:42: Urine Color Yellow, Urine Appearance Turbid, Urine pH 6.0, Ur Specific [place] 1.020, Urine Protein 100 H, Urine Glucose (UA) Negative, Urine Ketones Negative, Urine Blood 50 H, Urine Nitrate Positive H, Urine Bilirubin Negative, Prot Sulfosalicylic Acd 4+ H, Urine Urobilinogen Normal, Ur Leukocyte Esterase 500 H, Urine RBC 0-5, Urine WBC >50 H, Ur Epithelial Cells 5-10 H, Urine Bacteria 4+ H, Urine Culture Comments Culture to follow 11/19/17 04:14: pCO2 41.8, pO2 97.9, HCO3 19.7 L, Total CO2 21.0, Base Excess - 6.5 L, ABG pH 7.29 L, ABG O2 Sat (Measured) 96.8 11/19/17 05:30: Lactic Acid, Venous 1.8 11/19/17 08:58: WBC 18.5 H, RBC 4.59, Hgb 13.7, Hct 40.4, MCV 88.0, MCH 29.8, MCHC 33.9, RDW 13.8, Plt Count 385, MPV 9.0, Immature Gran % (Auto) 0.40, Immature Gran # (Auto) 0.08 H, Neutrophils % 88.8 H, Lymphocytes % 2.8 L, Monocytes % 7.6, Eosinophils % 0.1, Basophils % 0.3, Nucleated RBC % 0.0, Neutrophils # 16.5 H, Lymphocytes # 0.51 L, Monocytes # 1.4 H, Eosinophils # 0.0 , Absolute Basophils 0.1 11/19/17 08:58: Sodium 132, Plasma Sodium 132, Potassium 4.0, Chloride 97, Carbon Dioxide 28.1, Anion Gap 10.9, BUN 9, Creatinine 0.69, Est GFR (Non-Af Amer) 91, BUN/Creatinine Ratio 13.0, Random Glucose 126 H, Calcium 8.3, Calcium Adj for Albumin 8.8, Total Bilirubin 0.4, AST 43, ALT 29, Alkaline Phosphatase 156, Total Protein 6.2, Albumin 3.0 L 11/19/17 11:50: pCO2 36.7, pO2 169.3 H, HCO3 21.8, Total CO2 22.9, Base Excess - 2.7 L, ABG pH 7.39, ABG O2 Sat (Measured) 99.1 H 11/19/17 14:50: pCO2 37.4, pO2 113.1 H, HCO3 20.8 L, Total CO2 21.9, Base Excess -4.1 L, ABG pH 7.36, ABG O2 Sat (Measured) 98.0 11/20/17 05:30: Troponin I Less than 0.017 11/20/17 05:34: WBC 11.0 H D, RBC 3.75 L, Hgb 10.9 L, Hct 32.7 L, MCV 87.2, MCH 29.1, MCHC 33.3, RDW 14.0, Plt Count 332, MPV 9.5, Immature Gran % (Auto) 0.60 H , Immature Gran # (Auto) 0.07 H, Neutrophils % 78.8 H, Lymphocytes % 9.9 L, Monocytes % 8.6, Eosinophils % 1.3, Basophils % 0.8, Nucleated RBC % 0.0, Neutrophils # 8.6 H, Lymphocytes # 1.09 L, Monocytes # 0.9, Eosinophils # 0.1, Absolute Basophils 0.1 11/20/17 07:05: pCO2 27.5 L, pO2 137.6 H, HCO3 19.4 L, Total CO2 20.3, Base Excess -3.1 L, ABG pH 7.47 H, ABG O2 Sat (Measured) 98.9 H 11/20/17 08:22: pCO2 34.5, pO2 128.3 H, HCO3 20.1 L, Total CO2 21.1, Base Excess -4.3 L, ABG pH 7.38, ABG O2 Sat (Measured) 98.5 H 11/20/17 23:59: Sodium 135, Plasma Sodium 135, Potassium 2.9 L D, Chloride 102, Carbon Dioxide 24.2, Anion Gap 11.7, BUN 2 L D, Creatinine 0.35 L, Est GFR (Non- Af Amer) 200 H D, BUN/Creatinine Ratio 5.7 L, Random Glucose 101, Calcium 7.5 L 11/21/17 07:44: WBC 9.3, RBC 3.56 L, Hgb 10.7 L, Hct 31.4 L, MCV 88.2, MCH 30.1 , MCHC 34.1, RDW 14.1 H, Plt Count 319, MPV 9.0, Immature Gran % (Auto) 0.30, Immature Gran # (Auto) 0.03, Neutrophils % 72.2, Lymphocytes % 14.5 L, Monocytes % 8.0, Eosinophils % 4.1 H, Basophils % 0.9, Nucleated RBC % 0.0, Neutrophils # 6.8 H, Lymphocytes # 1.35 L, Monocytes # 0.8, Eosinophils # 0.4, Absolute Basophils 0.1 11/21/17 07:44: Sodium 135, Plasma Sodium 135, Potassium 4.1 D, Chloride 105, Carbon Dioxide 24.0, Anion Gap 10.1, BUN 2 L, Creatinine 0.36 L, Est GFR (Non- Af Amer) 193 H, BUN/Creatinine Ratio 5.6 L, Random Glucose 104, Calcium 7.4 L 11/22/17 05:00: Sodium 135, Plasma Sodium 135, Potassium 4.6, Chloride 102, Carbon Dioxide 25.8, Anion Gap 11.8, BUN 1 L, Creatinine 0.31 L, Est GFR (Non- Af Amer) 230 H, BUN/Creatinine Ratio 3.2 L, Random Glucose 87, Calcium 8.1 Discharge Location: [facility] Disposition: Intermediate Care Facility ICF Condition: Fair Discharge Activity: Activity as tolerated Discharge Diet: General/regular food Referrals: Isaiah Orellana MD [Primary Care Provider] - Two Weeks Prescriptions (Any new or edited meds): Cefuroxime Axetil [Ceftin] 500 mg PO Q12H #12 tab Metoprolol Succinate [Toprol Xl] 50 mg PO DAILY #30 tablet.sa Mupirocin [Bactroban] 1 appl TP BID 3 Days #1 tube Complete Home Medications List: Complete Home Medication List: Aspirin [Aspirin Chewable] 81 mg PO DAILY 07/19/12 Calcium Carbonate/Vitamin D3 [Calcium 600-Vit D3 200 Tablet] 1 ea PO 0700,1100, 1500 07/19/12 Multivitamin [Multivitamins] 1 ea PO DAILY 07/19/12 Rosuvastatin Calcium [Crestor] 20 mg PO HS 07/19/12 predniSONE [Prednisone] 5 mg PO DAILY 07/19/12 Alendronate Sodium [Fosamax] 70 mg PO TU 11/23/12 carBAMazepine [Tegretol] 2 tab PO BID #120 tab 07/13/14 Baclofen 20 mg PO 0700,1100,1500,1900 02/27/16 Polyethylene Glycol 3350 [Miralax] 17 gm PO DAILY PRN 04/24/16 Acetaminophen [Tylenol] 650 mg PO QID PRN #0 tab 04/28/16 Levothyroxine Sodium [Synthroid] 88 mcg PO DAILY 09/07/17 Atenolol [Tenormin] 25 mg PO DAILY #30 tab 09/12/17 gabapentin 800 mg tablet 800 mg PO QID 11/02/17 methenamine mandelate 1 gram tablet 1 g PO QID 11/02/17 Methadone HCl 5 mg PO DAILY 11/19/17 Cefuroxime Axetil [Ceftin] 500 mg PO Q12H #12 tab 11/22/17 Imipramine HCl [Tofranil] 25 mg PO BID tablet 11/22/17 Metoprolol Succinate [Toprol Xl] 50 mg PO DAILY #30 tablet.sa 11/22/17 Mupirocin [Bactroban] 1 appl TP BID 3 Days #1 tube 11/22/17
[2017-11-22] MEDS: CEFUROXIME AXETIL 500 MG TABLET PO SCH (07:57)
[2017-11-22] MEDS: POTASSIUM CHLORIDE 40 MEQ in NORMAL SALINE 1,000 ML IV SCH (07:57)
[2017-11-22] MEDS: LEVOTHYROXINE SODIUM 88 MCG TABLET PO SCH (07:57)
[2017-11-22] MEDS: MUPIROCIN 22 APPL TUBE TP SCH (08:46)
[2017-11-22] MEDS: ENOXAPARIN SODIUM 40 MG/0.4 ML SYRG SC SCH (08:47)
[2017-11-22] MEDS: predniSONE 5 MG TABLET PO SCH (08:48)
[2017-11-22] MEDS: GABAPENTIN 400 MG CAPSULE PO SCH (08:48)
[2017-11-22] MEDS: METOPROLOL SUCCINATE 50 MG TABLET.SA PO SCH (08:49)
[2017-11-22] MEDS: METHENAMINE MANDELATE 1 GM TABLET PO SCH (08:49)
[2017-11-22] MEDS: IMIPRAMINE HCL 25 MG TABLET PO SCH (08:49)
[2017-11-22] MEDS: carBAMazepine 200 MG TABLET PO SCH (08:53)
[2017-11-22] MEDS: METHADONE HCL 10 MG TABLET PO SCH (08:53)
[2017-11-22 10:31] VITALS: BP 138/72
--- NOTE | 2017-11-22 20:11 | PN ---
Progess Note - Interim Date: 11/19/17 Time: 06:50 Narrative: 11/22/17 20:01 Patient is seen and evaluated. DATE: 11/19/17 PHYSICIAN: Barrera Garcia PREOPERATIVE DIAGNOSIS: Acute Hypoxia, Respiratory failure POSTOPERATIVE DIAGNOSIS: Acute Hypoxia PROCEDURE PERFORMED: Endotracheal Intubation. ANESTHESIA: None ESTIMATED BLOOD LOSS: None. COMPLICATIONS: None. INDICATIONS FOR PROCEDURE The patient is a 62-year-old female s/p respiratory failure. The patient is in need of airway maintenance and protection. DESCRIPTION OF PROCEDURE IN DETAIL The patient was lying in the supine position. Preoxygenation via [facemask / BVM ] was provided for a minimum of 3 minutes. The patient had continuous cardiac as well as pulse oximetry monitoring during the procedure. Rapid sequence induction was not provided due to decreased responsiveness. Fiberoptic laryngoscope was used to directly visualize the vocal cords. A 7.0 mm endotracheal tube was visualized advancing between the cords to a level of 24cm at the lip. The sylette was then removed and discarded. Tube placement was also noted by fogging in the tube, equal and bilateral breath sounds, no sounds over the epigastrium, and end-tidal colorimetric monitoring. The cuff was then inflated with 10ccs of air and the tube secured using a commercially available device. A good pulse oximetry wave form was seen on the monitor throughout the procedure. A portable chest x-ray has been ordered for placement. The patient tolerated the procedure well.
== END 2017-11-22 11:30 | DRG 871 ==
LOC: ER 01:15 → SCU 03:17 → MS 11-21 08:47
PROVIDERS: ADMIT Nurse Practitioner; ATTEND Family Medicine
DX: I48.91 Unspecified atrial fibrillation; N31.9 Neuromuscular dysfunction of bladder, unspecified; N39.0 Urinary tract infection, site not specified; E87.6 Hypokalemia; G35 Multiple sclerosis; E03.9 Hypothyroidism, unspecified; R40.4 Transient alteration of awareness; E87.1 Hypo-osmolality and hyponatremia; Z46.6 Encounter for fitting and adjustment of urinary device; I95.9 Hypotension, unspecified; A49.02 Methicillin resistant Staphylococcus aureus infection, unspecified site; A41.51 Sepsis due to Escherichia coli [E. coli]; R65.21 Severe sepsis with septic shock; I48.2 Chronic atrial fibrillation; K21.9 Gastro-esophageal reflux disease without esophagitis; G82.20 Paraplegia, unspecified; E78.5 Hyperlipidemia, unspecified
CPT/HCPCS: 36415; 36600; 70450; 71010; 71045; 80048; 80053; 81001; 82803; 83519; 83605; 83880; 84145; 84484; 85025; 86140; 87040; 87081; 87086; 93005; 94002; 94003; 94640; 94664; 96361; 96365; 96366; 96367; 96375; 99285

== ENCOUNTER 2018-05-17 20:47 | Inpatient (IN) ==
[2018-05-17] MEDS ORDERED: NORMAL SALINE 1,000 ML IV ONE ×3 (21:02→22:57)
--- NOTE | 2018-05-17 21:12 | ERNOTE ---
<Butch Price - Last Filed: 05/17/18 21:52> Neuro HPI ER Record Date of Service: 05/17/18 Presenting Symptoms: other - Mental status change Time Seen by Provider: 05/17/18 20:54 Source: EMS Exam Limitations: clinical condition Immunizations: IMMUNIZATION HX Immunizations Up to Date Yes History of Influenza Vaccine Yes Hx Pneumococcal Vaccination Yes Allergies/Adverse Reactions: Allergies Allergy/AdvReac Type Severity Reaction Status Date / Time No Known Allergies Allergy Verified 05/17/18 14:53 Home Medications: HOME MEDICATIONS Aspirin [Aspirin Chewable] 81 mg PO DAILY 07/19/12 [Last Taken 11/18/17 07:00] Calcium Carbonate/Vitamin D3 [Calcium 600-Vit D3 200 Tablet] 1 ea PO 0700,1100,1500 07/19/12 [Last Taken 11/18/17 15:00] Multivitamin [Multivitamins] 1 ea PO DAILY 07/19/12 [Last Taken 11/18/17 07:00] Rosuvastatin Calcium [Crestor] 20 mg PO HS 07/19/12 [Last Taken 11/18/17 19:00] predniSONE [Prednisone] 5 mg PO DAILY 07/19/12 [Last Taken 11/18/17 07:00] Alendronate Sodium [Fosamax] 70 mg PO TU 11/23/12 [Last Taken 09/04/17] Baclofen 20 mg PO 0700,1100,1500,1900 02/27/16 [Last Taken 11/18/17 19:00] Polyethylene Glycol 3350 [Miralax] 17 gm PO DAILY PRN 04/24/16 [Last Taken 08/29/17] Acetaminophen [Tylenol] 650 mg PO QID PRN #0 tab 04/28/16 [Last Taken Unknown] Levothyroxine Sodium [Synthroid] 88 mcg PO DAILY 09/07/17 [Last Taken 11/18/17 07:00] Atenolol [Tenormin] 25 mg PO DAILY #30 tab 09/12/17 [Last Taken 11/18/17 07:00] gabapentin 800 mg tablet 800 mg PO QID 11/02/17 [Last Taken 11/18/17 19:00] methenamine mandelate 1 gram tablet 1 g PO QID 11/02/17 [Last Taken 11/18/17 19: 00] Imipramine HCl [Tofranil] 25 mg PO BID tab 11/22/17 [Last Taken Unknown] Metoprolol Succinate [Toprol Xl] 50 mg PO DAILY #30 tablet.sa 11/22/17 [Last Taken Unknown] sodium chloride 0.9 % irrigation solution 1 irrig IR DAILY 8 Days #1000 ml 01/25/18 [Last Taken Unknown] methadone 5 mg tablet 5 mg PO DAILY #30 tab 05/16/18 [Last Taken Unknown] carBAMazepine [Tegretol] 3 tab PO BID 05/17/18 [Last Taken Unknown] - History of Present Illness Narrative: This patient is a 62-year-old female who was sent here by ambulance from the custodial for concerns of sepsis. He has a history of urosepsis. Her suprapubic catheter was changed at 7 AM. It sounds like all was well afterwards. She was noted to be fine at 6:30 PM when she went to her room. At 8:15 PM, she was noted to have decreased responsiveness and blood in the catheter. She did not have an elevated temperature. Her blood sugar was 147. The patient is not able to give any history. Review of Systems - Narrative Narrative: The patient is not able to give any history. Medical History (Last Reviewed 05/17/18 @ 21:05 by Butch Price MD) Vitamin D deficiency (Chronic) Onset Date: Unknown Trigeminal neuralgia (Chronic) Onset Date: Unknown Seborrhea (Chronic) Onset Date: ~07/11/13 face Paraplegia (Chronic) Onset Date: ~08/20/11 Osteoporosis (Chronic) Onset Date: Unknown Multiple sclerosis (Chronic) Onset Date: Unknown Keratosis seborrheica (Chronic) Onset Date: ~02/19/14 Hypothyroidism (Chronic) Onset Date: Unknown Hypertension (Chronic) Onset Date: Unknown Hyperlipidemia (Chronic) Onset Date: Unknown Fibrocystic breast disease (Chronic) Onset Date: Unknown Chronic pain syndrome (Chronic) Onset Date: Unknown Chronic indwelling Huddleston catheter (Chronic) has suprapubic catheter Frequent UTI (Chronic) will do standing order for UA if increased weakness, confusion, etc. Multiple sclerosis (Chronic) HLD (hyperlipidemia) (Chronic) Hypothyroidism (Chronic) Bronchitis Onset Date: ~12/22/13 Chronic UTI Onset Date: Unknown Mild concentric left ventricular hypertrophy Onset Date: ~07/27/12 Seborrheic keratoses Onset Date: ~07/11/13 Urinary tract infection Onset Date: ~12/22/13 Surgical History: Surgical History (Last Reviewed 05/17/18 @ 21:05 by Butch Price MD) H/O esophagogastroduodenoscopy Onset Date: ~08/26/02 History of breast biopsy Onset Date: ~05/20/02 bilat History of colonoscopy Onset Date: Unknown History of hysterectomy Onset Date: Unknown History of thyroid surgery Onset Date: ~12/20/05 right thyroid bx Family History: Family History (Last Reviewed 05/17/18 @ 21:05 by Butch Price MD) Brother Kidney stones Father Cancer lung Grandmother Cancer colon Sister CVA (cerebral vascular accident) Kidney stones Social History: Preferred Language Malian Smoking Status Former smoker Abuse History No History of abuse Psych History No pertinent hx (Last Reviewed 05/17/18 @ 14:53 by DONAVAN Puga) No Social History Section defined Physical Exam - Physical Exam General Appearance: Present: wd/wn, no apparent distress, other - She appears to be sleeping. She opened her eyes to verbal stimuli. She did not withdraw from pain. After her arms dropped on her face a couple times, she was able to keep them from hitting her face. She had no movement of the lower extremities.. Absent: alert Head Exam: Present: normal inspection, no evidence of injury Eye Exam: Other: bilateral - The pupils are equal. She has no doll's eyes. She does not spontaneously look towards anyone. Ears, Nose, Throat: Present: normal ENT inspection, dry mucous membranes Neck: Present: normal inspection. Absent: lymphadenopathy (R), lymphadenopathy (L), thyromegaly Respiratory: Present: no respiratory distress, normal breath sounds, lungs clear Cardiovascular/Chest: Present: regular rate, rhythm, no murmur Gastrointestinal/Abdominal: Present: normal bowel sounds, nondistended, soft, no organomegaly Extremity Exam: Present: other - No evidence of injury. She has compression stocking on her legs. Her fingers are cool. Neurological Exam: Present: other - She appears to be sleeping. She opened her eyes to verbal stimuli. She did not withdraw from pain. After her arms dropped on her face a couple times, she was able to keep them from hitting her face. She had no movement of the lower extremities. Her gag reflex is intact.. Absent: facial droop Skin Exam: Present: normal color, cool/dry Progress - Vital Signs Patient's Vital Signs:: I have reviewed the patient's vital signs. Vital Signs: Vital Signs 05/17/18 20:50 Temperature 36.7 C Pulse Rate 87 Respiratory Rate 12 Blood Pressure 139/66 O2 Sat by Pulse Oximetry 99 - X-Ray X-Ray #1 X-Ray: chest Interpretation: Interp. by la X-ray Comments: One view chest: No acute findings. - CT/Ultrasound CT/Ultrasound Narrative: CT head without IV contrast FINDINGS: White matter changes compatible with microvascular angiopathy. Encephalomalacia consistent with remote infarction. Sulcal widening and parenchymal volume loss with commensurate ventricular caliber and extra-axial space enlargement appropriate for the patient's age. The visualized intraorbital soft tissue structures are unremarkable. The paranasal sinuses and mastoid air cells are clear. No fracture. Visualized soft tissues are unremarkable. IMPRESSION: No acute intracranial pathology. Specifically, no intracranial mass, hemo rrhage, or evidence for acute infarction. - Progress/Reassessment Chief Complaint: Altered Mental Status - Transfer of Care Physician Sign Out: Butch Price Receiving Physician: Reji Maciel Pending Results: Labs Expected Disposition: Admit Departure Clinical Impression: Change in mental status - Departure Disposition: Still a patient Condition: Fair <Reji Maciel - Last Filed: 05/17/18 23:28> Neuro HPI ER Record Immunizations: IMMUNIZATION HX Immunizations Up to Date Yes History of Influenza Vaccine Yes Hx Pneumococcal Vaccination Yes Medical History (Last Reviewed 05/17/18 @ 21:05 by Butch Price MD) Vitamin D deficiency (Chronic) Onset Date: Unknown Trigeminal neuralgia (Chronic) Onset Date: Unknown Seborrhea (Chronic) Onset Date: ~07/11/13 face Paraplegia (Chronic) Onset Date: ~08/20/11 Osteoporosis (Chronic) Onset Date: Unknown Multiple sclerosis (Chronic) Onset Date: Unknown Keratosis seborrheica (Chronic) Onset Date: ~02/19/14 Hypothyroidism (Chronic) Onset Date: Unknown Hypertension (Chronic) Onset Date: Unknown Hyperlipidemia (Chronic) Onset Date: Unknown Fibrocystic breast disease (Chronic) Onset Date: Unknown Chronic pain syndrome (Chronic) Onset Date: Unknown Chronic indwelling Huddleston catheter (Chronic) has suprapubic catheter Frequent UTI (Chronic) will do standing order for UA if increased weakness, confusion, etc. Multiple sclerosis (Chronic) HLD (hyperlipidemia) (Chronic) Hypothyroidism (Chronic) Bronchitis Onset Date: ~12/22/13 Chronic UTI Onset Date: Unknown Mild concentric left ventricular hypertrophy Onset Date: ~07/27/12 Seborrheic keratoses Onset Date: ~07/11/13 Urinary tract infection Onset Date: ~12/22/13 Surgical History: Surgical History (Last Reviewed 05/17/18 @ 21:05 by Butch Price MD) H/O esophagogastroduodenoscopy Onset Date: ~08/26/02 History of breast biopsy Onset Date: ~05/20/02 bilat History of colonoscopy Onset Date: Unknown History of hysterectomy Onset Date: Unknown History of thyroid surgery Onset Date: ~12/20/05 right thyroid bx Family History: Family History (Last Reviewed 05/17/18 @ 21:05 by Butch Price MD) Brother Kidney stones Father Cancer lung Grandmother Cancer colon Sister CVA (cerebral vascular accident) Kidney stones Social History: Preferred Language Malian Smoking Status Former smoker Abuse History No History of abuse Psych History No pertinent hx (Last Reviewed 05/17/18 @ 14:53 by DONAVAN Puga) No Social History Section defined Progress - Vital Signs Vital Signs: Vital Signs 05/17/18 20:50 05/17/18 21:34 05/17/18 21:54 Temperature 36.7 C Pulse Rate 87 87 88 Respiratory Rate 12 9 L Blood Pressure 139/66 138/69 O2 Sat by Pulse Oximetry 99 95 Plan - Plan Plan: Taking over for Dr. Price awaiting Labs. Patient is evaluated for possible sepsis, she is from a custodial with MS, and she is paraplegic. She had a decreased level of responsiveness earlier at custodial, brought here for possible sepsis. Head CT and CXR are negative. Admitted to Dr. Pollack. Urosepsis, altered mental status.
[2018-05-17 21:46] LABS: Hematocrit 43.4 % (37.0-47.0); Hemoglobin 14.9 gm/dL (12.5-16.0); Mean Cell Volume 86.6 fl (78-100); Mean Corpuscular Hemoglobin 29.7 pg (27-31); Mean Corpuscular Hgb Conc 34.3 g/dl (32-36); Mean Platelet Volume 8.8 fl (8-12.5); Neutrophil # 18.2 K/mm3 (1.3-6.0); Neutrophil % 90.9 % (42-75.0); Platelet Count 460 K/mm3 (150-450); Red Blood Count 5.01 M/mm3 (4.2-5.4); Red Cell Distribution Width 14.2 % (11.5-14.0); White Blood Count 20.1 K/mm3 (4.0-10.5)
[2018-05-17 22:01] LABS: Albumin * 3.9 gm/dl (3.4-5.0); Anion Gap 13.9 mmol/L (6.8-13.8); BUN/Creatinine Ratio 24.6 (9.0-21.6); Bilirubin, Total 0.2 mg/dL (0.0-1.1); Ca. Corrected For Albumin 9.8 mg/dL (8.4-10.2); Carbon Dioxide 28.2 mmol/L (24-32.6); Potassium 4.1 mmol/L (3.4-4.6); Total Protein 7.8 gm/dL (6.2-8.2)
[2018-05-17 22:48] LABS: Urine Bilirubin 1 mg/dl (NEGATIVE); Urine Blood 250 /ul (NEGATIVE); Urine Ketone Negative (NEGATIVE); Urine Protein 100 mg/dL (NEGATIVE); Urine Urobilinogen Normal (NORMAL); Urine pH 6.5 pH (5.0-7.0)
[2018-05-17] MEDS ORDERED: cefTRIAXone SODIUM 1,000 MG/100 ML BAG IV ONE (22:52)
[2018-05-17 23:02] LABS: Urine Nitrite Positive (NEGATIVE)
[2018-05-17 23:03] LABS: Urine Appearance Slightly Cloudy (CLEAR); Urine Bacteria 2+; Urine RBC 25-50 /hpf (0-5)
[2018-05-18] MEDS: NORMAL SALINE 1,000 ML IV PRN ×4 (01:57→21:43)
[2018-05-18] MEDS ORDERED: ACETAMINOPHEN 500 MG TABLET PO PRN (04:23)
[2018-05-18 07:12] LABS: Hematocrit 34.4 % (37.0-47.0); Hemoglobin 11.8 gm/dL (12.5-16.0); Mean Cell Volume 85.1 fl (78-100); Mean Corpuscular Hemoglobin 29.2 pg (27-31); Mean Corpuscular Hgb Conc 34.3 g/dl (32-36); Mean Platelet Volume 8.7 fl (8-12.5); Neutrophil % 91.5 % (42-75.0); Platelet Count 368 K/mm3 (150-450); Red Blood Count 4.04 M/mm3 (4.2-5.4); Red Cell Distribution Width 14.1 % (11.5-14.0); White Blood Count 19.6 K/mm3 (4.0-10.5)
[2018-05-18 07:46] LABS: Albumin * 2.6 gm/dl (3.4-5.0); Anion Gap 13.4 mmol/L (6.8-13.8); BUN/Creatinine Ratio 10.5 (9.0-21.6); Bilirubin, Total 0.2 mg/dL (0.0-1.1); Ca. Corrected For Albumin 9.1 mg/dL (8.4-10.2); Calcium * 8.3 mg/dL (7.9-10.9); Carbon Dioxide 24.9 mmol/L (24-32.6); Potassium 3.3 mmol/L (3.4-4.6); Total Protein 5.7 gm/dL (6.2-8.2)
[2018-05-18] MEDS: IMIPRAMINE HCL 25 MG TABLET PO SCH ×2 (13:07→20:22)
[2018-05-18] MEDS: carBAMazepine 200 MG TABLET PO SCH ×2 (13:07→20:21)
[2018-05-18] MEDS: ASPIRIN 81 MG TAB.CHEW PO SCH (13:07)
[2018-05-18] MEDS: LEVOTHYROXINE SODIUM 88 MCG TABLET PO SCH (13:07)
[2018-05-18] MEDS: METHENAMINE MANDELATE 1 GM TABLET PO SCH ×3 (13:07→20:22)
[2018-05-18] MEDS: ATENOLOL 25 MG TABLET PO SCH (13:08)
[2018-05-18] MEDS: GABAPENTIN 400 MG CAPSULE PO SCH ×3 (13:08→20:21)
[2018-05-18] MEDS: METHADONE HCL 10 MG TABLET PO SCH (13:08)
[2018-05-18] MEDS: BACLOFEN 10 MG TABLET PO SCH ×3 (13:08→18:48)
[2018-05-18] MEDS: predniSONE 5 MG TABLET PO SCH (13:09)
[2018-05-18] MEDS: METOPROLOL SUCCINATE 50 MG TABLET.SA PO SCH (13:19)
[2018-05-18] MEDS: POLYETHYLENE GLYCOL 3350 119 GM BTL PO PRN (18:50)
[2018-05-18] MEDS: ROSUVASTATIN CALCIUM 20 MG TABLET PO SCH (20:20)
[2018-05-19] MEDS: NORMAL SALINE 1,000 ML IV PRN ×3 (05:15→19:55)
[2018-05-19] MEDS: ACETAMINOPHEN 325 MG TABLET PO PRN (06:50)
[2018-05-19] MEDS: LEVOTHYROXINE SODIUM 88 MCG TABLET PO SCH (06:51)
[2018-05-19] MEDS: BACLOFEN 10 MG TABLET PO SCH ×4 (06:51→20:16)
[2018-05-19] MEDS: ASPIRIN 81 MG TAB.CHEW PO SCH (09:14)
[2018-05-19] MEDS: METHENAMINE MANDELATE 1 GM TABLET PO SCH ×4 (09:14→20:17)
[2018-05-19] MEDS: carBAMazepine 200 MG TABLET PO SCH ×2 (09:15→20:17)
[2018-05-19] MEDS: MULTIVITAMINS 1 CAP CAPSULE PO SCH (09:16)
[2018-05-19] MEDS: GABAPENTIN 400 MG CAPSULE PO SCH ×5 (09:16→20:16)
[2018-05-19] MEDS: IMIPRAMINE HCL 25 MG TABLET PO SCH ×2 (09:17→20:17)
[2018-05-19] MEDS: ATENOLOL 25 MG TABLET PO SCH (09:17)
[2018-05-19] MEDS: METOPROLOL SUCCINATE 50 MG TABLET.SA PO SCH (09:18)
[2018-05-19] MEDS: METHADONE HCL 10 MG TABLET PO SCH (09:21)
[2018-05-19] MEDS: predniSONE 5 MG TABLET PO SCH (09:28)
[2018-05-19] MEDS: POLYETHYLENE GLYCOL 3350 119 GM BTL PO PRN (11:05)
[2018-05-19 11:08] LABS: Hematocrit 30.9 % (37.0-47.0); Hemoglobin 10.6 gm/dL (12.5-16.0); Mean Cell Volume 86.3 fl (78-100); Mean Corpuscular Hemoglobin 29.6 pg (27-31); Mean Corpuscular Hgb Conc 34.3 g/dl (32-36); Mean Platelet Volume 8.8 fl (8-12.5); Neutrophil # 7.9 K/mm3 (1.3-6.0); Neutrophil % 77.1 % (42-75.0); Platelet Count 326 K/mm3 (150-450); Red Blood Count 3.58 M/mm3 (4.2-5.4); Red Cell Distribution Width 14.6 % (11.5-14.0); White Blood Count 10.3 K/mm3 (4.0-10.5)
[2018-05-19 11:19] LABS: Albumin * 2.5 gm/dl (3.4-5.0); Anion Gap 13.9 mmol/L (6.8-13.8); Bilirubin, Total 0.2 mg/dL (0.0-1.1); Ca. Corrected For Albumin 8.9 mg/dL (8.4-10.2); Carbon Dioxide 25.4 mmol/L (24-32.6); Potassium 3.3 mmol/L (3.4-4.6); Total Protein 5.6 gm/dL (6.2-8.2)
[2018-05-19] MEDS: ROSUVASTATIN CALCIUM 20 MG TABLET PO SCH (20:16)
--- NOTE | 2018-05-19 21:13 | HP ---
Chief Complaint - Chief Complaint Date of Service: 05/18/18 Time of Service: 07:00 Chief Complaint: Altered mental status History of Present Illness: Laura is a resident at [facility] with multiple sclerosis and neurogenic bladder with chronic suprapubic catheter. Staff noted she was more lethargic and acting different from her usual and sent her to the ER for evaluation. UA shows likely UTI. Staff at [facility] had reported with valiente flushes having leak of fluid into depends. When catheter was changed in the hospital after valiente was placed through suprapubic site catheter tip was noted to come out of the pelvis. It was retracted back into bladder before it was known if the catheter tip came through the urethra or vagina. Medical History (Last Reviewed 05/18/18 @ 00:57 by Brsia Arvizu RN) Vitamin D deficiency (Chronic) Onset Date: Unknown Trigeminal neuralgia (Chronic) Onset Date: Unknown Seborrhea (Chronic) Onset Date: ~07/11/13 face Paraplegia (Chronic) Onset Date: ~08/20/11 Osteoporosis (Chronic) Onset Date: Unknown Multiple sclerosis (Chronic) Onset Date: Unknown Keratosis seborrheica (Chronic) Onset Date: ~02/19/14 Hypothyroidism (Chronic) Onset Date: Unknown Hypertension (Chronic) Onset Date: Unknown Hyperlipidemia (Chronic) Onset Date: Unknown Fibrocystic breast disease (Chronic) Onset Date: Unknown Chronic pain syndrome (Chronic) Onset Date: Unknown Chronic indwelling Valiente catheter (Chronic) has suprapubic catheter Frequent UTI (Chronic) will do standing order for UA if increased weakness, confusion, etc. Multiple sclerosis (Chronic) HLD (hyperlipidemia) (Chronic) Hypothyroidism (Chronic) Bronchitis Onset Date: ~12/22/13 Chronic UTI Onset Date: Unknown Mild concentric left ventricular hypertrophy Onset Date: ~07/27/12 Seborrheic keratoses Onset Date: ~07/11/13 Urinary tract infection Onset Date: ~12/22/13 Surgical History: Surgical History (Last Reviewed 05/18/18 @ 00:57 by Brisa Arvizu RN) H/O esophagogastroduodenoscopy Onset Date: ~08/26/02 History of breast biopsy Onset Date: ~05/20/02 bilat History of colonoscopy Onset Date: Unknown History of hysterectomy Onset Date: Unknown History of thyroid surgery Onset Date: ~12/20/05 right thyroid bx Family History: Family History (Last Reviewed 05/18/18 @ 00:57 by Brisa Arvizu RN) Brother Kidney stones Father Cancer lung Grandmother Cancer colon Sister CVA (cerebral vascular accident) Kidney stones Social History: Patient Lives/Resources [employer] Utilized Occupation Disabled Preferred Language Spanish Do you have any oriental orthodox or Yes: Restorationism cultural preference? Smoking Status Unknown if ever smoked Have you smoked in the past 12 No months Abuse History No History of abuse Psych History No pertinent hx (Last Reviewed 05/17/18 @ 14:53 by DONAVAN Puga) No Social History Section defined Review Of Systems (GEN) - Review of Systems Generalized/Overall Review: Present: Weakness, Fatigue. Absent: Chills, Fever EENTM: Present: No Symptoms Reported Respiratory: Present: No Symptoms Reported Cardiac: Present: No Symptoms Reported Abdominal: Present: No Symptoms Reported Genitourinary: Present: No Symptoms Reported Musculoskeletal: Present: No Symptoms Reported Neurological: Present: No Symptoms Reported Skin: Present: No Symptoms Reported Endocrine: Present: No Symptoms Reported Immunizations: IMMUNIZATION HX Immunizations Up to Date Yes History of Influenza Vaccine Yes Hx Pneumococcal Vaccination Yes Allergies/Adverse Reactions: Allergies Allergy/AdvReac Type Severity Reaction Status Date / Time No Known Allergies Allergy Verified 05/17/18 14:53 Home Medications: HOME MEDICATIONS Aspirin [Aspirin Chewable] 81 mg PO DAILY 07/19/12 [Last Taken 11/18/17 07:00] Calcium Carbonate/Vitamin D3 [Calcium 600-Vit D3 200 Tablet] 1 ea PO 0700,1100,1500 07/19/12 [Last Taken 11/18/17 15:00] Multivitamin [Multivitamins] 1 ea PO DAILY 07/19/12 [Last Taken 11/18/17 07:00] Rosuvastatin Calcium [Crestor] 20 mg PO HS 07/19/12 [Last Taken 11/18/17 19:00] predniSONE [Prednisone] 5 mg PO DAILY 07/19/12 [Last Taken 11/18/17 07:00] Alendronate Sodium [Fosamax] 70 mg PO TU 11/23/12 [Last Taken 09/04/17] Baclofen 20 mg PO 0700,1100,1500,1900 02/27/16 [Last Taken 11/18/17 19:00] Polyethylene Glycol 3350 [Miralax] 17 gm PO DAILY PRN 04/24/16 [Last Taken 08/29/17] Acetaminophen [Tylenol] 650 mg PO QID PRN #0 tab 04/28/16 [Last Taken Unknown] Levothyroxine Sodium [Synthroid] 88 mcg PO DAILY 09/07/17 [Last Taken 11/18/17 07:00] Atenolol [Tenormin] 25 mg PO DAILY #30 tab 09/12/17 [Last Taken 11/18/17 07:00] gabapentin 800 mg tablet 800 mg PO QID 11/02/17 [Last Taken 11/18/17 19:00] methenamine mandelate 1 gram tablet 1 g PO QID 11/02/17 [Last Taken 11/18/17 19:00] Imipramine HCl [Tofranil] 25 mg PO BID tab 11/22/17 [Last Taken Unknown] Metoprolol Succinate [Toprol Xl] 50 mg PO DAILY #30 tablet.sa 11/22/17 [Last Taken Unknown] sodium chloride 0.9 % irrigation solution 1 irrig IR DAILY 8 Days #1000 ml 01/25/18 [Last Taken Unknown] methadone 5 mg tablet 5 mg PO DAILY #30 tab 05/16/18 [Last Taken Unknown] carBAMazepine [Tegretol] 3 tab PO BID 05/17/18 [Last Taken Unknown] Exam - Exam Vital Signs: Vital Signs - Last Taken Temp 37.7 C 05/19/18 20:03 Pulse 84 05/19/18 20:03 Resp 16 05/19/18 20:03 BP 181/76 H 05/19/18 20:03 Pulse Ox 97 05/19/18 20:03 Constitutional: Present: Somnolent ENT Exam: Present: hearing grossly normal Respiratory: Present: lungs clear, no respiratory distress Cardiovascular/Chest: Present: regular rate, rhythm, no edema, no murmur Abdomen: Present: Normal bowel sounds, soft, nontender, nondistended Extremity: Present: normal inspection Skin Exam: Present: normal color, warm/dry, no cyanosis Neurologic: Present: motor weakness - diffuse 4/5. Absent: sensory deficit Eye contact: Present: cooperative, good eye contact Diagnostic Studies: Abnormal Lab Results 05/19/18 05/19/18 Range/Units 10:52 10:52 RBC 3.58 L (4.2-5.4) M/mm3 Hgb 10.6 L (12.5-16.0) gm/dL Hct 30.9 L (37.0-47.0) % RDW 14.6 H (11.5-14.0) % Immature Gran % (Auto) 0.50 H (0.001-0.429) % Immature Gran # (Auto) 0.05 H (0.000-0.0310) K/mm3 Neutrophils % 77.1 H (42-75.0) % Lymphocytes % 10.5 L (20-51) % Monocytes % 9.5 H (0.0-9) % Neutrophils # 7.9 H (1.3-6.0) K/mm3 Lymphocytes # 1.08 L (1.5-3.5) k/mm3 Potassium 3.3 L (3.4-4.6) mmol/L Anion Gap 13.9 H (6.8-13.8) mmol/L Creatinine 0.25 L (0.4-1.4) mg/dL Est GFR (Non-Af Amer) 295 H D (60-130) mL/min ALT 16 L (19-67) U/L Total Protein 5.6 L (6.2-8.2) gm/dL Albumin 2.5 L (3.4-5.0) gm/dl Microbiology 05/17/18 22:38 Urine Culture - Preliminary Urine,Catheterized Gram Negative Bacilli 05/17/18 21:57 Blood Culture - Preliminary Blood NO GROWTH 24 HOURS 05/17/18 21:40 Blood Culture - Preliminary Blood NO GROWTH 24 HOURS 05/18/18 00:30 - Final Nares MRSA Negative Laboratory Results WBC 10.3 K/mm3 (4.0-10.5) D 05/19/18 10:52 RBC 3.58 M/mm3 (4.2-5.4) L 05/19/18 10:52 Hgb 10.6 gm/dL (12.5-16.0) L 05/19/18 10:52 Hct 30.9 % (37.0-47.0) L 05/19/18 10:52 MCV 86.3 fl (78-100) 05/19/18 10:52 MCH 29.6 pg (27-31) 05/19/18 10:52 MCHC 34.3 g/dl (32-36) 05/19/18 10:52 RDW 14.6 % (11.5-14.0) H 05/19/18 10:52 Plt Count 326 K/mm3 (150-450) 05/19/18 10:52 MPV 8.8 fl (8-12.5) 05/19/18 10:52 Immature Gran % (Auto) 0.50 % (0.001-0.429) H 05/19/18 10:52 Immature Gran # (Auto) 0.05 K/mm3 (0.000-0.0310) H 05/19/18 10:52 Neutrophils % 77.1 % (42-75.0) H 05/19/18 10:52 Lymphocytes % 10.5 % (20-51) L 05/19/18 10:52 Monocytes % 9.5 % (0.0-9) H 05/19/18 10:52 Eosinophils % 1.7 % (0.0-3.0) 05/19/18 10:52 Basophils % 0.7 % (0.0-1.0) 05/19/18 10:52 Nucleated RBC % 0.0 k/mm3 (0-1) 05/19/18 10:52 Neutrophils # 7.9 K/mm3 (1.3-6.0) H 05/19/18 10:52 Lymphocytes # 1.08 k/mm3 (1.5-3.5) L 05/19/18 10:52 Monocytes # 1.0 k/mm3 (0.0-1.0) 05/19/18 10:52 Eosinophils # 0.2 k/mm3 (0.0-0.7) 05/19/18 10:52 Absolute Basophils 0.1 k/mm3 (0.0-0.1) 05/19/18 10:52 Sodium 136 mmol/L (132-142) 05/19/18 10:52 Plasma Sodium 136 mmol/L (130-142) 05/19/18 10:52 Potassium 3.3 mmol/L (3.4-4.6) L 05/19/18 10:52 Chloride 100 mmol/L (97-106) 05/19/18 10:52 Carbon Dioxide 25.4 mmol/L (24-32.6) 05/19/18 10:52 Anion Gap 13.9 mmol/L (6.8-13.8) H 05/19/18 10:52 BUN 3 mg/dL (3-23) 05/19/18 10:52 Creatinine 0.25 mg/dL (0.4-1.4) L 05/19/18 10:52 Est GFR (Non-Af Amer) 295 mL/min (60-130) H D 05/19/18 10:52 BUN/Creatinine Ratio 12.0 (9.0-21.6) 05/19/18 10:52 Random Glucose 101 mg/dL (70-110) 05/19/18 10:52 Lactic Acid, Venous 2.0 mmol/L (0.4-2.0) 05/17/18 23:59 Calcium 8.0 mg/dL (7.9-10.9) 05/19/18 10:52 Calcium Adj for Albumin 8.9 mg/dL (8.4-10.2) 05/19/18 10:52 Total Bilirubin 0.2 mg/dL (0.0-1.1) 05/19/18 10:52 AST 15 U/L (0-48) 05/19/18 10:52 ALT 16 U/L (19-67) L 05/19/18 10:52 Alkaline Phosphatase 60 U/L (50-170) 05/19/18 10:52 C-Reactive Prot, Quant 3.9 mg/dL (0.0-0.9) H 05/17/18 22:03 Total Protein 5.6 gm/dL (6.2-8.2) L 05/19/18 10:52 Albumin 2.5 gm/dl (3.4-5.0) L 05/19/18 10:52 Urine Color Reddish brown 05/17/18 22:38 Urine Appearance Slightly cloudy (CLEAR) 05/17/18 22:38 Urine pH 6.5 pH (5.0-7.0) 05/17/18 22:38 Ur Specific [place] 1.010 SP.GR. (1.005-1.010) 05/17/18 22:38 Urine Protein 100 mg/dL (NEGATIVE) H 05/17/18 22:38 Urine Glucose (UA) Negative mg/dL (NEGATIVE) 05/17/18 22:38 Urine Ketones Negative mg/dL (NEGATIVE) 05/17/18 22:38 Urine Blood 250 /ul (NEGATIVE) H 05/17/18 22:38 Urine Nitrate Positive (NEGATIVE) H 05/17/18 22:38 Urine Bilirubin 1 mg/dl (NEGATIVE) H 05/17/18 22:38 Urine Ictotest Negative (NEGATIVE) 05/17/18 22:38 Prot Sulfosalicylic Acd 4+ mg/dL (0) H 05/17/18 22:38 Urine Urobilinogen Normal EU/dl (NORMAL) 05/17/18 22:38 Ur Leukocyte Esterase 500 /ul (NEGATIVE) H 05/17/18 22:38 Urine RBC 25-50 /hpf (0-5) H 05/17/18 22:38 Urine WBC 5-10 /hpf (0-5) H 05/17/18 22:38 Ur Epithelial Cells 0-5 /hpf (0-5) 05/17/18 22:38 Urine Bacteria 2+ (NONE) H 05/17/18 22:38 Urine Culture Comments Culture to follow 05/17/18 22:38 Assessment/Plan - Narrative Narrative: Laura is a 62 yo female with history of multiple sclerosis and neurogenic bladder with chronic suprapubic catheter. She has leukocytosis, altered mental state, weakness, and hyponatremia of 127. Will admit to acute inpatient status, expect >2 midnights for correction of hyponatremia and treatment of uti and monitoring for response. - Assessment/Plan (1) UTI (urinary tract infection) Problem: Acute Qualifiers: Urinary tract infection type: catheter-associated UTI Indwelling urinary catheter type: cystostomy catheter Encounter type: initial encounter Qualified Code(s): T83.510A - Infection and inflammatory reaction due to cystostomy catheter, initial encounter; N39.0 - Urinary tract infection, site not specified (2) Hyponatremia Problem: Acute (3) Altered mental status Problem: Acute (4) Multiple sclerosis Problem: Chronic (5) Neurogenic bladder Problem: Chronic
--- NOTE | 2018-05-19 22:04 | PN ---
Subjective - Date and Time Seen Date: 05/19/18 Time: 10:00 Subjective Narrative: Laura reports feeling better today. Feels stronger. Denies fever, chills, nausea, or vomiting. Objective - Vitals Vitals: Last Vital Signs Temp 37.7 C 05/19/18 20:03 Pulse 84 05/19/18 20:03 Resp 16 05/19/18 20:03 BP 181/76 H 05/19/18 20:03 Pulse Ox 97 05/19/18 20:03 - Abnormal Lab Findings Abnormal Lab Findings: Abnormal Lab Results 05/19/18 05/19/18 Range/Units 10:52 10:52 RBC 3.58 L (4.2-5.4) M/mm3 Hgb 10.6 L (12.5-16.0) gm/dL Hct 30.9 L (37.0-47.0) % RDW 14.6 H (11.5-14.0) % Immature Gran % (Auto) 0.50 H (0.001-0.429) % Immature Gran # (Auto) 0.05 H (0.000-0.0310) K/mm3 Neutrophils % 77.1 H (42-75.0) % Lymphocytes % 10.5 L (20-51) % Monocytes % 9.5 H (0.0-9) % Neutrophils # 7.9 H (1.3-6.0) K/mm3 Lymphocytes # 1.08 L (1.5-3.5) k/mm3 Potassium 3.3 L (3.4-4.6) mmol/L Anion Gap 13.9 H (6.8-13.8) mmol/L Creatinine 0.25 L (0.4-1.4) mg/dL Est GFR (Non-Af Amer) 295 H D (60-130) mL/min ALT 16 L (19-67) U/L Total Protein 5.6 L (6.2-8.2) gm/dL Albumin 2.5 L (3.4-5.0) gm/dl - Exam Constitutional: Present: Alert, Oriented x3, No distress ENT Exam: Present: hearing grossly normal Respiratory: Present: lungs clear, normal breath sounds Cardiovascular/Chest: Present: regular rate, rhythm, no edema Abdomen: Present: Normal bowel sounds, soft, nontender, nondistended Skin Exam: Present: normal color, warm/dry, no cyanosis Cauti Physician Documentation - Urinary Catheter Management Suprapubic Date of Insertion: 05/17/18 Time of Insertion: 23:00 Assessment/Plan Plan Narrative: Sodium improved, fatigue and strength improved. Gram negative eulalia on urine culture. Continue rocephin, await final culture, if continues to do well could discharge tomorrow to long term. - Problems/Diagnosis (1) UTI (urinary tract infection) Problem: Acute Qualifiers: Urinary tract infection type: catheter-associated UTI Indwelling urinary catheter type: cystostomy catheter Encounter type: initial encounter Qualified Code(s): T83.510A - Infection and inflammatory reaction due to cystostomy catheter, initial encounter; N39.0 - Urinary tract infection, site not specified (2) Hyponatremia Problem: Resolved (3) Altered mental status Problem: Resolved (4) Multiple sclerosis Problem: Chronic (5) Neurogenic bladder Problem: Chronic
[2018-05-20] MEDS: NORMAL SALINE 1,000 ML IV PRN (03:12)
[2018-05-20 06:56] LABS: Hemoglobin 10.7 gm/dL (12.5-16.0); Mean Cell Volume 85.2 fl (78-100); Mean Corpuscular Hemoglobin 29.4 pg (27-31); Mean Corpuscular Hgb Conc 34.5 g/dl (32-36); Mean Platelet Volume 8.7 fl (8-12.5); Neutrophil # 6.9 K/mm3 (1.3-6.0); Neutrophil % 74.9 % (42-75.0); Platelet Count 315 K/mm3 (150-450); Red Blood Count 3.64 M/mm3 (4.2-5.4); Red Cell Distribution Width 14.5 % (11.5-14.0); White Blood Count 9.1 K/mm3 (4.0-10.5)
--- NOTE | 2018-05-20 06:57 | PN ---
Priya Note - Interim Date: 05/20/18 Time: 06:52 Narrative: 05/20/18 06:52 Pt. with fever this am to 38.5. she is alert and oriented, but still does not look baseline. She's edematous everywhere, has erythema of left arm and a cardiac murmur, though no distinct other source of infection or concerns. K was 3.3 yesterday. Given fever will await urine C&S to see if abx change is needed and will recheck labs. doubtful that she will be discharged today given the new fever and her edema. Will stop IVF as well, but continue rocephin for now. consider CXR. Urogenital catheter presentation. Most likely suprapubic catheter was pushed through the urethra, but will check to see if was contacted and what tests might be appropriate to be sure no fistula is present.
[2018-05-20 07:03] LABS: Anion Gap 8.1 mmol/L (6.8-13.8); BUN/Creatinine Ratio 8.3 (9.0-21.6); Calcium * 7.8 mg/dL (7.9-10.9); Carbon Dioxide 27.6 mmol/L (24-32.6); Estimated Creat Clear 225.8; Potassium 2.7 mmol/L (3.4-4.6)
[2018-05-20] MEDS: BACLOFEN 10 MG TABLET PO SCH ×2 (07:14→11:56)
[2018-05-20] MEDS: LEVOTHYROXINE SODIUM 88 MCG TABLET PO SCH (07:14)
[2018-05-20] MEDS: ACETAMINOPHEN 325 MG TABLET PO PRN (07:14)
[2018-05-20] MEDS: POTASSIUM CHLORIDE IN WATER 100 ML IV SCH ×4 (08:04→11:56)
[2018-05-20] MEDS: IMIPRAMINE HCL 25 MG TABLET PO SCH ×2 (09:58→20:51)
[2018-05-20] MEDS: METOPROLOL SUCCINATE 50 MG TABLET.SA PO SCH (09:59)
[2018-05-20] MEDS: METHENAMINE MANDELATE 1 GM TABLET PO SCH ×4 (09:59→20:49)
[2018-05-20] MEDS: ASPIRIN 81 MG TAB.CHEW PO SCH (10:01)
[2018-05-20] MEDS: GABAPENTIN 400 MG CAPSULE PO SCH ×4 (10:01→20:50)
[2018-05-20] MEDS: carBAMazepine 200 MG TABLET PO SCH ×2 (10:01→20:50)
[2018-05-20] MEDS: ATENOLOL 25 MG TABLET PO SCH (10:02)
[2018-05-20] MEDS: predniSONE 5 MG TABLET PO SCH (10:02)
[2018-05-20] MEDS: MULTIVITAMINS 1 CAP CAPSULE PO SCH (10:02)
[2018-05-20] MEDS: METHADONE HCL 10 MG TABLET PO SCH (10:09)
[2018-05-20] MEDS ORDERED: CEFEPIME HCL 2 GM in DEXTROSE 5 % IN WATER 100 ML IV STA ×2 (14:49)
[2018-05-20] MEDS ORDERED: FUROSEMIDE 10 MG/ML VIAL IV ONE (14:51)
--- NOTE | 2018-05-20 15:57 | PN ---
Subjective - Date and Time Seen Date: 05/20/18 Time: 15:46 Subjective Narrative: Patient is without complaint. She does feel very tired and sleepy. Nursing reports that she has been more difficult to arouse this afternoon and her respiratory rate has been very constricted. She is been afebrile since this morning, but definitely more lethargic. Objective - Review of Systems Generalized/Overall Review: Reports: Weakness, Fever, Fatigue. Denies: Chills EENTM: Reports: No Symptoms Reported Respiratory: Reports: No Symptoms Reported Cardiac: Reports: Edema Abdominal: Reports: No Symptoms Reported Genitourinary Symptoms: Reports: No Symptoms Reported Musculoskeletal Complaints: Reports: Back Pain, Muscle Pain Neurological: Reports: Numbness, Weakness, Pre-existing Deficit Skin: Reports: No Symptoms Reported Endocrine: Reports: No Symptoms Reported - Vitals Vitals: Last Vital Signs Temp 36.5 C 05/20/18 14:15 Pulse 64 05/20/18 15:30 Resp 8 L 05/20/18 14:15 BP 101/54 05/20/18 15:30 Pulse Ox 95 05/20/18 14:15 - Abnormal Lab Findings Abnormal Lab Findings: Abnormal Lab Results 05/20/18 05/20/18 Range/Units 06:50 06:50 RBC 3.64 L (4.2-5.4) M/mm3 Hgb 10.7 L (12.5-16.0) gm/dL Hct 31.0 L (37.0-47.0) % RDW 14.5 H (11.5-14.0) % Immature Gran % (Auto) 0.50 H (0.001-0.429) % Immature Gran # (Auto) 0.05 H (0.000-0.0310) K/mm3 Lymphocytes % 13.1 L (20-51) % Monocytes % 10.1 H (0.0-9) % Neutrophils # 6.9 H (1.3-6.0) K/mm3 Lymphocytes # 1.20 L (1.5-3.5) k/mm3 Sodium 130 L (132-142) mmol/L Potassium 2.7 L (3.4-4.6) mmol/L BUN 2 L (3-23) mg/dL Creatinine 0.24 L (0.4-1.4) mg/dL Est GFR (Non-Af Amer) 309 H (60-130) mL/min BUN/Creatinine Ratio 8.3 L (9.0-21.6) Calcium 7.8 L (7.9-10.9) mg/dL - Exam Constitutional: Present: Alert, Oriented x3, Mild distress, Somnolent ENT Exam: Present: hearing grossly normal Neck: Present: supple Respiratory: Present: chest non-tender, lungs clear, normal breath sounds, no accessory muscle use Cardiovascular/Chest: Present: regular rate, rhythm, no murmur Abdomen: Present: Normal bowel sounds, soft, nontender, nondistended, no rebound tenderness, no hepatospenomegaly Extremity: Present: normal inspection, no pedal edema Skin Exam: Present: normal color Neurologic: Present: normal mood/affect, oriented x 3 Appearance: Present: appropriate appearance Eye contact: Present: cooperative, good eye contact, normal speech Thoughts: Present: normal thought pattern, no apparent hallucination Cauti Physician Documentation - Urinary Catheter Management Suprapubic Urethral Indwelling: No Date of Insertion: 05/17/18 - has suprapubic chronic catheter due to MS. Time of Insertion: 23:00 Assessment/Plan - Problems/Diagnosis (1) Sepsis due to gram-negative UTI Problem: Acute Narrative: CBC was improved and pt. was more at baseline mentation, but still spiking fevers, more somnolent/lethargic this afternoon. UCx grew out P. [place] sensitive only to IV abx. Concern for her not being fully recovered from her infection so will switch up abx. if the cefepime works, will consider sending her back to the [facility] for IV abx. Will recheck CBC in am. consider cRP/ESR. (2) Edema Problem: Acute Qualifiers: Edema type: generalized Qualified Code(s): R60.1 - Generalized edema Narrative: better after stopping the fluids and giving her a dose of IV lasix. Urine is still fairly concentrated, so may need to re-run fluids again. (3) Altered mental status Problem: Acute Qualifiers: Altered mental status type: disorientation Qualified Code(s): R41.0 - Disorientation, unspecified Narrative: due to sepsis - still somnolent though her overall mentation is closer to baseline. (4) Hyponatremia Problem: Resolved (5) Hypokalemia Problem: Acute Narrative: given IV KCL will recheck labs in am. (6) multiple sclerosis w/ neurogenic bladder Problem: Chronic Narrative: puts her at high risk for recurrent infection. There was concern for possible bladder issues with suprapubic catheter causing possible fistula vs. exiting urethra. Will do f/u outpt. (7) Discharge planning issues Problem: Acute Narrative: discharge when her mentation and energy are back to baseline and K and Na are stable.
[2018-05-20] MEDS: ROSUVASTATIN CALCIUM 20 MG TABLET PO SCH (20:49)
[2018-05-21] MEDS ORDERED: CEFEPIME HCL 1 GM in DEXTROSE 5 % IN WATER 100 ML IV SCH ×2 (03:00)
[2018-05-21 05:31] LABS: Hematocrit 33.9 % (37.0-47.0); Hemoglobin 11.4 gm/dL (12.5-16.0); Mean Cell Volume 86.5 fl (78-100); Mean Corpuscular Hemoglobin 29.1 pg (27-31); Mean Corpuscular Hgb Conc 33.6 g/dl (32-36); Mean Platelet Volume 8.8 fl (8-12.5); Neutrophil # 4.1 K/mm3 (1.3-6.0); Neutrophil % 56.7 % (42-75.0); Platelet Count 347 K/mm3 (150-450); Red Blood Count 3.92 M/mm3 (4.2-5.4); Red Cell Distribution Width 14.9 % (11.5-14.0); White Blood Count 7.3 K/mm3 (4.0-10.5)
[2018-05-21 05:41] LABS: Albumin * 2.8 gm/dl (3.4-5.0); Anion Gap 10.7 mmol/L (6.8-13.8); BUN/Creatinine Ratio 10.2 (9.0-21.6); Bilirubin, Total 0.2 mg/dL (0.0-1.1); Ca. Corrected For Albumin 8.8 mg/dL (8.4-10.2); Calcium * 8.2 mg/dL (7.9-10.9); Carbon Dioxide 30.6 mmol/L (24-32.6); Potassium 3.3 mmol/L (3.4-4.6); Total Protein 6.4 gm/dL (6.2-8.2)
[2018-05-21] MEDS: ACETAMINOPHEN 325 MG TABLET PO PRN (07:12)
[2018-05-21] MEDS: LEVOTHYROXINE SODIUM 88 MCG TABLET PO SCH (07:12)
[2018-05-21] MEDS ORDERED: POTASSIUM CHLORIDE 40 MEQ/15 ML BTL PO SCH (09:00)
[2018-05-21] MEDS: ASPIRIN 81 MG TAB.CHEW PO SCH (09:29)
[2018-05-21] MEDS: MULTIVITAMINS 1 CAP CAPSULE PO SCH (09:30)
[2018-05-21] MEDS: METOPROLOL SUCCINATE 50 MG TABLET.SA PO SCH (09:30)
[2018-05-21] MEDS: GABAPENTIN 400 MG CAPSULE PO SCH (09:30)
[2018-05-21] MEDS: predniSONE 5 MG TABLET PO SCH (09:30)
[2018-05-21] MEDS: METHENAMINE MANDELATE 1 GM TABLET PO SCH (09:31)
[2018-05-21] MEDS: ATENOLOL 25 MG TABLET PO SCH (09:31)
[2018-05-21] MEDS: IMIPRAMINE HCL 25 MG TABLET PO SCH (09:31)
[2018-05-21] MEDS: carBAMazepine 200 MG TABLET PO SCH (09:31)
--- NOTE | 2018-05-21 09:56 | DS ---
(1) Sepsis due to gram-negative UTI Problem: Acute (2) Edema Problem: Acute Qualifiers: Edema type: generalized Qualified Code(s): R60.1 - Generalized edema (3) Altered mental status Problem: Acute Qualifiers: Altered mental status type: disorientation Qualified Code(s): R41.0 - Disorientation, unspecified (4) Hyponatremia Problem: Resolved (5) Hypokalemia Problem: Acute (6) multiple sclerosis w/ neurogenic bladder Problem: Chronic (7) Discharge planning issues Problem: Acute Description of Stay: Patient was admitted for for sepsis from UTI. She was initially placed on IV Rocephin and her white count did improve but she continued to spike fevers. Urine culture eventually came back growing out Pseudomonas, which was resistant to all oral medications, as well as being resistant to Rocephin. She was switched to cefepime 2 g IV every 12 hours and she had a remarkable improvement in 24 hours with no further fevers. At the time of being switched from Rocephin to cefepime she was beginning to become more lethargic and hard to arouse. On the morning of discharge she was back to her typical baseline. Patient also received large quantity of IV fluids due to her sepsis, hypotension and tachycardia. Due to this large volume she became hypokalemic to a level of 2.7. She was given 40 mEq of IV potassium which brought her potassium back up to 3.3. She will continue on p.o. potassium for the next couple days which should restore her to a normal level. Due to her somnolence, her muscle relaxers were held, her gabapentin was decrea sed and her methadone pain medicine was held. We should be able to restore these at time of discharge. She was complaining of more and more pain just prior to discharge. Patient will be continued on IV cefepime 1 g every 12 hours for the next 6 days. We will repeat a BMP in 1 week. Patient did become edematous from her IV fluids, so these were discontinued 24 hours prior to discharge. She was given a single dose of IV Lasix, 40 mg. She diuresed well and had little edema in her extremities at time of discharge. Due to her recurrent UTIs I do recommend that she drink a minimum of 2 L of water daily with 3 L being preferred. Procedures Performed: none Results and Findings: Pending Mircobiology Results 05/17/18 21:57 Blood Blood Culture - Preliminary NO GROWTH AFTER 48 HOURS 05/17/18 21:40 Blood Blood Culture - Preliminary NO GROWTH AFTER 48 HOURS Lab Pending Results 05/17/18 21:40: WBC 20.1 H, RBC 5.01, Hgb 14.9, Hct 43.4, MCV 86.6, MCH 29.7, MCHC 34.3, RDW 14.2 H, Plt Count 460 H, MPV 8.8, Immature Gran % (Auto) 0.40, Immature Gran # (Auto) 0.09 H, Neutrophils % 90.9 H, Lymphocytes % 3.3 L, Monocytes % 4.9, Eosinophils % 0.2, Basophils % 0.3, Nucleated RBC % 0.0, Neutrophils # 18.2 H, Lymphocytes # 0.67 L, Monocytes # 1.0, Eosinophils # 0.1, Absolute Basophils 0.1 05/17/18 21:40: Sodium 127 L, Plasma Sodium 128 L, Potassium 4.1, Chloride 89 L, Carbon Dioxide 28.2, Anion Gap 13.9 H, BUN 15 D, Creatinine 0.61, Est GFR (Non- Af Amer) 105 D, BUN/Creatinine Ratio 24.6 H, Random Glucose 170 H, Calcium 10.0, Calcium Adj for Albumin 9.8, Total Bilirubin 0.2, AST 24, ALT 25, Alkaline Phosphatase 102, Total Protein 7.8, Albumin 3.9 05/17/18 21:57: Lactic Acid, Venous 2.1 H 05/17/18 22:03: C-Reactive Prot, Quant 3.9 H 05/17/18 22:38: Urine Color Reddish brown, Urine Appearance Slightly cloudy, Urine pH 6.5, Ur Specific [place] 1.010, Urine Protein 100 H, Urine Glucose (UA) Negative, Urine Ketones Negative, Urine Blood 250 H, Urine Nitrate Positive H, Urine Bilirubin 1 H, Urine Ictotest Negative, Prot Sulfosalicylic Acd 4+ H, Urine Urobilinogen Normal, Ur Leukocyte Esterase 500 H, Urine RBC 25-50 H, Urine WBC 5-10 H, Ur Epithelial Cells 0-5, Urine Bacteria 2+ H, Urine Culture Comments Culture to follow 05/17/18 23:59: Lactic Acid, Venous 2.0 05/18/18 06:55: WBC 19.6 H, RBC 4.04 L, Hgb 11.8 L, Hct 34.4 L, MCV 85.1, MCH 29.2, MCHC 34.3, RDW 14.1 H, Plt Count 368, MPV 8.7, Immature Gran % (Auto) 0.60 H, Immature Gran # (Auto) 0.11 H, Neutrophils % 91.5 H, Lymphocytes % 3.9 L, Monocytes % 3.6, Eosinophils % 0.1, Basophils % 0.3, Nucleated RBC % 0.0, Neutrophils # 18.0 H, Lymphocytes # 0.77 L, Monocytes # 0.7, Eosinophils # 0.0, Absolute Basophils 0.1 05/18/18 06:55: Sodium 135, Plasma Sodium 135, Potassium 3.3 L, Chloride 100, Carbon Dioxide 24.9, Anion Gap 13.4, BUN 6 D, Creatinine 0.57, Est GFR (Non-Af Amer) 114, BUN/Creatinine Ratio 10.5, Random Glucose 110 D, Calcium 8.3, Calcium Adj for Albumin 9.1, Total Bilirubin 0.2, AST 18, ALT 18 L, Alkaline Phosphatase 72, Total Protein 5.7 L, Albumin 2.6 L 05/19/18 10:52: WBC 10.3 D, RBC 3.58 L, Hgb 10.6 L, Hct 30.9 L, MCV 86.3, MCH 29.6, MCHC 34.3, RDW 14.6 H, Plt Count 326, MPV 8.8, Immature Gran % (Auto) 0.50 H, Immature Gran # (Auto) 0.05 H, Neutrophils % 77.1 H, Lymphocytes % 10.5 L, Monocytes % 9.5 H, Eosinophils % 1.7, Basophils % 0.7, Nucleated RBC % 0.0, Neutrophils # 7.9 H, Lymphocytes # 1.08 L, Monocytes # 1.0, Eosinophils # 0.2, Absolute Basophils 0.1 05/19/18 10:52: Sodium 136, Plasma Sodium 136, Potassium 3.3 L, Chloride 100, Carbon Dioxide 25.4, Anion Gap 13.9 H, BUN 3, Creatinine 0.25 L, Est GFR (Non-Af Amer) 295 H D, BUN/Creatinine Ratio 12.0, Random Glucose 101, Calcium 8.0, Calcium Adj for Albumin 8.9, Total Bilirubin 0.2, AST 15, ALT 16 L, Alkaline Phosphatase 60, Total Protein 5.6 L, Albumin 2.5 L 05/20/18 06:50: Sodium 130 L, Plasma Sodium 130, Potassium 2.7 L, Chloride 97, Carbon Dioxide 27.6, Anion Gap 8.1, BUN 2 L, Creatinine 0.24 L, Est GFR (Non-Af Amer) 309 H, BUN/Creatinine Ratio 8.3 L, Random Glucose 98, Calcium 7.8 L 05/20/18 06:50: WBC 9.1, RBC 3.64 L, Hgb 10.7 L, Hct 31.0 L, MCV 85.2, MCH 29.4, MCHC 34.5, RDW 14.5 H, Plt Count 315, MPV 8.7, Immature Gran % (Auto) 0.50 H, Immature Gran # (Auto) 0.05 H, Neutrophils % 74.9, Lymphocytes % 13.1 L, Monocytes % 10.1 H, Eosinophils % 0.7, Basophils % 0.7, Nucleated RBC % 0.0, Neutrophils # 6.9 H, Lymphocytes # 1.20 L, Monocytes # 0.9, Eosinophils # 0.1, Absolute Basophils 0.1 05/21/18 05:23: WBC 7.3, RBC 3.92 L, Hgb 11.4 L, Hct 33.9 L, MCV 86.5, MCH 29.1, MCHC 33.6, RDW 14.9 H, Plt Count 347, MPV 8.8, Immature Gran % (Auto) 0.60 H, Immature Gran # (Auto) 0.04 H, Neutrophils % 56.7, Lymphocytes % 21.7, Monocytes % 14.1 H, Eosinophils % 6.1 H, Basophils % 0.8, Nucleated RBC % 0.0, Neutrophils # 4.1, Lymphocytes # 1.57, Monocytes # 1.0, Eosinophils # 0.4, Absolute Basophils 0.1 05/21/18 05:23: Sodium 135, Plasma Sodium 135, Potassium 3.3 L D, Chloride 97, Carbon Dioxide 30.6, Anion Gap 10.7, BUN 5 D, Creatinine 0.49, Est GFR (Non-Af Amer) 136 H D, BUN/Creatinine Ratio 10.2, Random Glucose 93, Calcium 8.2, Calcium Adj for Albumin 8.8, Total Bilirubin 0.2, AST 28, ALT 25, Alkaline Phosphatase 69, Total Protein 6.4, Albumin 2.8 L Discharge Location: [facility] Disposition: SNF Condition: Fair Level of Care: SNF Discharge Activity: Activity as tolerated Discharge Diet: General/regular food - recommend a minimum of 2 liters of water daily, 3L preferably Snf Therapy: Physicial Therapy Referrals: Isaiah Orellana MD [Primary Care Provider] - One Week Prescriptions (Any new or edited meds): Cefepime HCl [Maxipime] 1 gm IV Q12H #12 vial Dextrose 5 % in Water [Dextrose 5%/Water] 100 ml IV Q12H #12 bag Potassium Chloride [Potassium Chloride 40 meq/15ml Liquid] 20 meq PO BID #2 btl Complete Home Medications List: Complete Home Medication List: Aspirin [Aspirin Chewable] 81 mg PO DAILY 07/19/12 Calcium Carbonate/Vitamin D3 [Calcium 600-Vit D3 200 Tablet] 1 ea PO 0700,1100,1500 07/19/12 Multivitamin [Multivitamins] 1 ea PO DAILY 07/19/12 Rosuvastatin Calcium [Crestor] 20 mg PO HS 07/19/12 predniSONE [Prednisone] 5 mg PO DAILY 07/19/12 Alendronate Sodium [Fosamax] 70 mg PO TU 11/23/12 Baclofen 20 mg PO 0700,1100,1500,1900 02/27/16 Polyethylene Glycol 3350 [Miralax] 17 gm PO DAILY PRN 04/24/16 Acetaminophen [Tylenol] 650 mg PO QID PRN #0 tab 04/28/16 Levothyroxine Sodium [Synthroid] 88 mcg PO DAILY 09/07/17 Atenolol [Tenormin] 25 mg PO DAILY #30 tab 09/12/17 gabapentin 800 mg tablet 800 mg PO QID 11/02/17 methenamine mandelate 1 gram tablet 1 g PO QID 11/02/17 Imipramine HCl [Tofranil] 25 mg PO BID tab 11/22/17 Metoprolol Succinate [Toprol Xl] 50 mg PO DAILY #30 tablet.sa 11/22/17 sodium chloride 0.9 % irrigation solution 1 irrig IR DAILY 8 Days #1000 ml 01/25/18 methadone 5 mg tablet 5 mg PO DAILY #30 tab 05/16/18 carBAMazepine [Tegretol] 3 tab PO BID 05/17/18 Cefepime HCl [Maxipime] 1 gm IV Q12H #12 vial 05/21/18 Dextrose 5 % in Water [Dextrose 5%/Water] 100 ml IV Q12H #12 bag 05/21/18 Potassium Chloride [Potassium Chloride 40 meq/15ml Liquid] 20 meq PO BID #2 btl 05/21/18 Amb Orders for Discharge: Comprehensive Metabolic Panel Time Frame: 1 Week, Location: Laboratory
[2018-05-21 10:53] VITALS: BP 141/66
== END 2018-05-21 11:20 | DRG 698 ==
LOC: ER 20:47 → MS 20:47
PROVIDERS: ADMIT Family Medicine; ATTEND Family Medicine
DX: Y73.8 Miscellaneous gastroenterology and urology devices associated with adverse incidents, not elsewhere classified; R01.1 Cardiac murmur, unspecified; G35 Multiple sclerosis; Z79.82 Long term (current) use of aspirin; Z87.440 Personal history of urinary (tract) infections; R60.1 Generalized edema; Z87.891 Personal history of nicotine dependence; E87.1 Hypo-osmolality and hyponatremia; Z16.39 Resistance to other specified antimicrobial drug; I10 Essential (primary) hypertension; Z93.59 Other cystostomy status; F11.90 Opioid use, unspecified, uncomplicated; N39.0 Urinary tract infection, site not specified; T83.510A Infection and inflammatory reaction due to cystostomy catheter, initial encounter; B96.5 Pseudomonas (aeruginosa) (mallei) (pseudomallei) as the cause of diseases classified elsewhere; A41.52 Sepsis due to Pseudomonas; E87.6 Hypokalemia; N31.9 Neuromuscular dysfunction of bladder, unspecified; G89.4 Chronic pain syndrome; E03.9 Hypothyroidism, unspecified; M81.0 Age-related osteoporosis without current pathological fracture; Z79.52 Long term (current) use of systemic steroids; E78.5 Hyperlipidemia, unspecified; G82.20 Paraplegia, unspecified; R41.0 Disorientation, unspecified
CPT/HCPCS: 36415; 51702; 70450; 71010; 71045; 80048; 80053; 81001; 83605; 85025; 86140; 87040; 87081; 87086; 96361; 96365; 99285

== ENCOUNTER 2018-08-12 18:48 | Observation (INO) ==
--- NOTE | 2018-08-12 19:03 | ERNOTE ---
Neuro HPI ER Record Date of Service: 08/12/18 Presenting Symptoms: confusion Time Seen by Provider: 08/12/18 18:56 Source: patient Exam Limitations: clinical condition Immunizations: IMMUNIZATION HX Immunizations Up to Date Yes History of Influenza Vaccine Yes Hx Pneumococcal Vaccination Yes Allergies/Adverse Reactions: Allergies Allergy/AdvReac Type Severity Reaction Status Date / Time No Known Allergies Allergy Verified 08/12/18 14:43 Home Medications: HOME MEDICATIONS Aspirin [Aspirin Chewable] 81 mg PO DAILY 07/19/12 [Last Taken 08/12/18 07:00] Calcium Carbonate/Vitamin D3 [Calcium 600-Vit D3 200 Tablet] 1 ea PO 0700, 1100,1500 07/19/12 [Last Taken 08/12/18 15:00] Multivitamin [Multivitamins] 1 ea PO DAILY 07/19/12 [Last Taken 08/12/18 06:00] Rosuvastatin Calcium [Crestor] 20 mg PO HS 07/19/12 [Last Taken 08/12/18 19:00] predniSONE [Prednisone] 5 mg PO DAILY 07/19/12 [Last Taken 08/12/18 07:00] Alendronate Sodium [Fosamax] 70 mg PO TU 11/23/12 [Last Taken 08/06/18 07:00] Baclofen 20 mg PO 0700,1100,1500,1900 02/27/16 [Last Taken 08/12/18 19:00] Polyethylene Glycol 3350 [Miralax] 17 gm PO DAILY PRN 04/24/16 [Last Taken 18] Acetaminophen [Tylenol] 650 mg PO QID PRN #0 tab 04/28/16 [Last Taken Unknown] Levothyroxine Sodium [Synthroid] 88 mcg PO DAILY 09/07/17 [Last Taken 08/12/18 07:00] Atenolol [Tenormin] 25 mg PO DAILY #30 tab 09/12/17 [Last Taken 08/12/18 07:00] gabapentin 800 mg tablet 800 mg PO QID 11/02/17 [Last Taken 08/12/18 19:00] methenamine mandelate 1 gram tablet 1 g PO QID 11/02/17 [Last Taken 08/12/18 19:00] Imipramine HCl [Tofranil] 25 mg PO BID tab 11/22/17 [Last Taken 08/12/18 19:00] Metoprolol Succinate [Toprol Xl] 50 mg PO DAILY #30 tablet.sa 11/22/17 [Last Taken 08/12/18 07:00] sodium chloride 0.9 % irrigation solution 1 irrig IR DAILY 8 Days #1000 ml 01/25/18 [Last Taken 08/12/18] carBAMazepine [Tegretol] 3 tab PO BID 05/17/18 [Last Taken 08/12/18 19:00] potassium chloride ER 20 mEq tablet,extended release 20 meq PO BID #60 tab 05/27/18 [Last Taken 08/12/18 19:00] Cefepime HCl [Maxipime] 2 gm IV Q12H #9 vial 08/13/18 [Last Taken Unknown] methadone 5 mg tablet 5 mg PO DAILY #30 tab 08/14/18 [Last Taken Unknown] - History of Present Illness Narrative: The patient is a 62 year old female who presents for altered mental status which has been present for 20 minutes. There are associated symptoms of urinary sediment. The patient denies pain. There are no alleviating factors. There are no aggravating factors. Previous treatments have included: none. Patient was recently treated with macrobid for UTI and finished treatment July 24. The past medical history includes: chronic indwelling valiente, MS, HLD, hypothyroid, chronic pain, HTN, osteoporosis and paraplegia. The social history is negative. The patient has had no known ill contacts. Report from [facility] [place] nurse that patient was normal and then 20 minutes ago began to have confusion and answering with inappropriate responses and noted that urine had become cloudy with sediment. RN reports that patient has done this in the past and become septic very quickly. Review of Systems - Review of Systems Constitutional: Present: fatigue, decreased activity level. Absent: fever EYE: Present: no symptoms reported ENT: Present: no symptoms reported. Absent: ear pain, nasal drainage, sore throat Respiratory: Present: no symptoms reported. Absent: shortness of breath, cough Cardiology: Present: no symptoms reported. Absent: chest pain Gastrointestinal/Abdominal: Present: no symptoms reported. Absent: vomiting, diarrhea, abdominal pain Genitourinary: Present: other - sediment and cloudy urine reported by RN Musculoskeletal: Present: no symptoms reported Skin: Present: no symptoms reported All Other Systems: All systems neg except as marked Medical History (Updated 05/21/18 @ 09:56 by Isaiah Orellana MD) Vitamin D deficiency (Chronic) Onset Date: Unknown Trigeminal neuralgia (Chronic) Onset Date: Unknown Seborrhea (Chronic) Onset Date: ~07/11/13 face Paraplegia (Chronic) Onset Date: ~08/20/11 Osteoporosis (Chronic) Onset Date: Unknown Multiple sclerosis (Chronic) Onset Date: Unknown Keratosis seborrheica (Chronic) Onset Date: ~02/19/14 Hypothyroidism (Chronic) Onset Date: Unknown Hypertension (Chronic) Onset Date: Unknown Hyperlipidemia (Chronic) Onset Date: Unknown Fibrocystic breast disease (Chronic) Onset Date: Unknown Chronic pain syndrome (Chronic) Onset Date: Unknown Chronic indwelling [place] catheter (Chronic) has suprapubic catheter Frequent UTI (Chronic) will do standing order for UA if increased weakness, confusion, etc. Multiple sclerosis (Chronic) HLD (hyperlipidemia) (Chronic) Hypothyroidism (Chronic) Bronchitis Onset Date: ~12/22/13 Chronic UTI Onset Date: Unknown Mild concentric left ventricular hypertrophy Onset Date: ~07/27/12 Seborrheic keratoses Onset Date: ~07/11/13 Urinary tract infection Onset Date: ~12/22/13 Surgical History: Surgical History (Updated 05/21/18 @ 09:56 by Isaiah Orellana MD) H/O esophagogastroduodenoscopy Onset Date: ~08/26/02 History of breast biopsy Onset Date: ~05/20/02 bilat History of colonoscopy Onset Date: Unknown History of hysterectomy Onset Date: Unknown History of thyroid surgery Onset Date: ~12/20/05 right thyroid bx Family History: Family History (Updated 11/02/17 @ 13:03 by Brisa Bailey RN) Brother Kidney stones Father Cancer lung Grandmother Cancer colon Sister Kidney stones CVA (cerebral vascular accident) Social History: Preferred Language Croatian Smoking Status Never smoker Have you smoked in the past 12 No months Do you dip or chew tobacco No Abuse History No History of abuse Psych History No pertinent hx Alcohol Use sober Drug Use none (Last Updated 08/12/18 @ 14:51 by DONAVAN Puga) No Social History Section defined Physical Exam - Physical Exam General Appearance: Present: wd/wn, alert, no apparent distress Head Exam: Present: normal inspection, no evidence of injury Eye Exam: Normal inspection: bilateral, PERRL: bilateral Neck: Present: normal inspection Respiratory: Present: no respiratory distress, normal breath sounds, no accessory muscle use, lungs clear Cardiovascular/Chest: Present: regular rate, rhythm, no murmur Gastrointestinal/Abdominal: Present: normal bowel sounds, nontender, nondistended, soft, no organomegaly Extremity Exam: Present: no edema Neurological Exam: Present: alert, normal mood/affect, disoriented to time, disoriented to situation - unknown why she was sent to ER. Absent: disoriented to person, disoriented to place Skin Exam: Present: normal color, warm/dry [place] Coma Scale - Assess Eye Opening: Spontaneous Motor: Obeys Commands Verbal: Inappropriate - intermittent, recognizes inappropriate responses. - Total Coma Scale Total: 13 Progress - Date and Time Seen: Date and Time: 08/12/18 20:09 Discussed case with , will admit for observation for hyponatremia, UTI and altered mental status. Discussed with patient and brother at bedside. - Results and Orders Patient's Lab Results:: I have reviewed the patient's lab results. - Vital Signs Patient's Vital Signs:: I have reviewed the patient's vital signs. Vital Signs: Vital Signs 08/12/18 18:52 Temperature 36.8 C Pulse Rate 70 Respiratory Rate 14 Blood Pressure 138/64 O2 Sat by Pulse Oximetry 100 - EKG EKG #1 EKG: NSR, other - nonspecific T wave abnormality EKG read: Interp. by me - Progress/Reassessment Chief Complaint: Altered Mental Status Departure Clinical Impression: Hyponatremia UTI (urinary tract infection) Qualifiers: Urinary tract infection type: catheter-associated UTI Indwelling urinary catheter type: unspecified Encounter type: subsequent encounter Qualified Code(s): T83.511D - Infection and inflammatory reaction due to indwelling urethral catheter, subsequent encounter Altered mental status Qualifiers: Altered mental status type: unspecified Qualified Code(s): R41.82 - Altered mental status, unspecified - Departure Disposition: Still a patient Condition: Fair
[2018-08-12 19:26] LABS: Hematocrit 37.3 % (37.0-47.0); Hemoglobin 12.5 gm/dL (12.5-16.0); Mean Cell Volume 88.8 fl (78-100); Mean Corpuscular Hemoglobin 29.8 pg (27-31); Mean Corpuscular Hgb Conc 33.5 g/dl (32-36); Mean Platelet Volume 8.6 fl (8-12.5); Neutrophil # 3.8 K/mm3 (1.3-6.0); Neutrophil % 57.4 % (42-75.0); Platelet Count 401 K/mm3 (150-450); Red Cell Distribution Width 13.3 % (11.5-14.0); White Blood Count 6.7 K/mm3 (4.0-10.5)
[2018-08-12 19:32] LABS: Urine Bilirubin Negative (NEGATIVE); Urine Blood 25 /ul (NEGATIVE); Urine Ketone Negative (NEGATIVE); Urine Protein Negative (NEGATIVE); Urine Urobilinogen Normal (NORMAL); Urine pH 6.5 pH (5.0-7.0)
[2018-08-12 19:40] LABS: Albumin * 3.5 gm/dl (3.4-5.0); Anion Gap 8.1 mmol/L (6.8-13.8); BUN/Creatinine Ratio 19.5 (9.0-21.6); Bilirubin, Total 0.2 mg/dL (0.0-1.1); CRP 0.6 mg/dL (0.0-0.9); Ca. Corrected For Albumin 8.8 mg/dL (8.4-10.2); Calcium * 8.7 mg/dL (7.9-10.9); Potassium 4.1 mmol/L (3.4-4.6); Total Protein 6.9 gm/dL (6.2-8.2)
[2018-08-12 19:43] LABS: Urine Appearance Clear (CLEAR); Urine Color Yellow; Urine Nitrite Positive (NEGATIVE)
[2018-08-12 19:44] LABS: Urine Bacteria 2+
[2018-08-12] MEDS ORDERED: NORMAL SALINE 1,000 ML IV ONE (20:01)
[2018-08-12] MEDS: CEFEPIME HCL 2 GM in DEXTROSE 5 % IN WATER 100 ML IV SCH ×2 (22:54)
[2018-08-13] MEDS: CEFEPIME HCL 2 GM in DEXTROSE 5 % IN WATER 100 ML IV SCH ×2 (05:38)
[2018-08-13] MEDS ORDERED: ACETAMINOPHEN 325 MG TABLET PO PRN (07:29)
[2018-08-13] MEDS ORDERED: POLYETHYLENE GLYCOL 3350 17 GM PACKET PO PRN (07:29)
[2018-08-13] MEDS ORDERED: CEFEPIME HCL 2 GM in DEXTROSE 5 % IN WATER 100 ML IV SCH ×2 (07:30)
[2018-08-13 08:14] LABS: Anion Gap 10.2 mmol/L (6.8-13.8); BUN/Creatinine Ratio 12.8 (9.0-21.6); Calcium * 8.8 mg/dL (7.9-10.9); Carbon Dioxide 29.9 mmol/L (24-32.6); Estimated Creat Clear 127.5; Potassium 4.1 mmol/L (3.4-4.6)
--- NOTE | 2018-08-13 08:26 | HP ---
Chief Complaint - Chief Complaint Date of Service: 08/13/18 Time of Service: 08:17 Chief Complaint: acute mental status changes History of Present Illness: Pt, resident of the [facility], and has PMH of MS with indwelling catheter and frequent UTI's despite good hydration, was in usual state of health until last pm when she had AMS with cloudy urine. due to her getting septic quickly from UTI's, she was sent to ER. In ER she was oriented only to person, her Na was 123 and her UA was concerning for UTI. She was placed on obs to received IVF NS and to be started on IV abx (as she typically has resistant pseudomonas infections, Sensitive to cefepime). This am she is Ox3 and has not complaints. Na is now 132 Medical History (Updated 08/12/18 @ 20:12 by SUGEY Sandoval) Vitamin D deficiency (Chronic) Onset Date: Unknown Trigeminal neuralgia (Chronic) Onset Date: Unknown Seborrhea (Chronic) Onset Date: ~07/11/13 face Paraplegia (Chronic) Onset Date: ~08/20/11 Osteoporosis (Chronic) Onset Date: Unknown Multiple sclerosis (Chronic) Onset Date: Unknown Keratosis seborrheica (Chronic) Onset Date: ~02/19/14 Hypothyroidism (Chronic) Onset Date: Unknown Hypertension (Chronic) Onset Date: Unknown Hyperlipidemia (Chronic) Onset Date: Unknown Fibrocystic breast disease (Chronic) Onset Date: Unknown Chronic pain syndrome (Chronic) Onset Date: Unknown Chronic indwelling Huddleston catheter (Chronic) has suprapubic catheter Frequent UTI (Chronic) will do standing order for UA if increased weakness, confusion, etc. Multiple sclerosis (Chronic) HLD (hyperlipidemia) (Chronic) Hypothyroidism (Chronic) Urinary tract infection Onset Date: ~12/22/13 Bronchitis Onset Date: ~12/22/13 Chronic UTI Onset Date: Unknown Mild concentric left ventricular hypertrophy Onset Date: ~07/27/12 Seborrheic keratoses Onset Date: ~07/11/13 Surgical History: Surgical History (Updated 05/21/18 @ 09:56 by Isaiah Orellana MD) H/O esophagogastroduodenoscopy Onset Date: ~08/26/02 History of breast biopsy Onset Date: ~05/20/02 bilat History of colonoscopy Onset Date: Unknown History of hysterectomy Onset Date: Unknown History of thyroid surgery Onset Date: ~12/20/05 right thyroid bx Family History: Family History (Updated 11/02/17 @ 13:03 by Brisa Bailey RN) Brother Kidney stones Father Cancer lung Grandmother Cancer colon Sister CVA (cerebral vascular accident) Kidney stones Social History: Patient Lives/Resources CC Utilized 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 Smoking Status Former smoker Have you smoked in the past 12 No months Do you dip or chew tobacco No Abuse History No History of abuse Psych History No pertinent hx Alcohol Use sober Drug Use none (Last Updated 08/12/18 @ 14:51 by DONAVAN Puga) No Social History Section defined Review Of Systems (GEN) - Review of Systems Generalized/Overall Review: Present: Weakness. Absent: Chills, Fever EENTM: Present: No Symptoms Reported Respiratory: Present: No Symptoms Reported Cardiac: Present: No Symptoms Reported Abdominal: Present: No Symptoms Reported Genitourinary: Present: Other - cloudy urine from indwelling catheter due to MS. Musculoskeletal: Present: No Symptoms Reported Neurological: Present: Other - altered MS Skin: Present: No Symptoms Reported Endocrine: Present: No Symptoms Reported Immunizations: IMMUNIZATION HX Immunizations Up to Date Yes History of Influenza Vaccine Yes Hx Pneumococcal Vaccination Yes Allergies/Adverse Reactions: Allergies Allergy/AdvReac Type Severity Reaction Status Date / Time No Known Allergies Allergy Verified 08/12/18 14:43 Home Medications: HOME MEDICATIONS Aspirin [Aspirin Chewable] 81 mg PO DAILY 07/19/12 [Last Taken 08/12/18 07:00] Calcium Carbonate/Vitamin D3 [Calcium 600-Vit D3 200 Tablet] 1 ea PO 0700,1100,1500 07/19/12 [Last Taken 08/12/18 15:00] Multivitamin [Multivitamins] 1 ea PO DAILY 07/19/12 [Last Taken 08/12/18 06:00] Rosuvastatin Calcium [Crestor] 20 mg PO HS 07/19/12 [Last Taken 08/12/18 19:00] predniSONE [Prednisone] 5 mg PO DAILY 07/19/12 [Last Taken 08/12/18 07:00] Alendronate Sodium [Fosamax] 70 mg PO TU 11/23/12 [Last Taken 08/06/18 07:00] Baclofen 20 mg PO 0700,1100,1500,1900 02/27/16 [Last Taken 08/12/18 19:00] Polyethylene Glycol 3350 [Miralax] 17 gm PO DAILY PRN 04/24/16 [Last Taken 08/29/17] Acetaminophen [Tylenol] 650 mg PO QID PRN #0 tab 04/28/16 [Last Taken Unknown] Levothyroxine Sodium [Synthroid] 88 mcg PO DAILY 09/07/17 [Last Taken 08/12/18 07:00] Atenolol [Tenormin] 25 mg PO DAILY #30 tab 09/12/17 [Last Taken 08/12/18 07:00] gabapentin 800 mg tablet 800 mg PO QID 11/02/17 [Last Taken 08/12/18 19:00] methenamine mandelate 1 gram tablet 1 g PO QID 11/02/17 [Last Taken 08/12/18 19:00] Imipramine HCl [Tofranil] 25 mg PO BID tab 11/22/17 [Last Taken 08/12/18 19:00] Metoprolol Succinate [Toprol Xl] 50 mg PO DAILY #30 tablet.sa 11/22/17 [Last Taken 08/12/18 07:00] sodium chloride 0.9 % irrigation solution 1 irrig IR DAILY 8 Days #1000 ml 01/25/18 [Last Taken 08/12/18] carBAMazepine [Tegretol] 3 tab PO BID 05/17/18 [Last Taken 08/12/18 19:00] potassium chloride ER 20 mEq tablet,extended release 20 meq PO BID #60 tab 05/27/18 [Last Taken 08/12/18 19:00] Methadone HCl 5 mg PO DAILY 08/12/18 [Last Taken 08/12/18 07:00] Exam - Exam Vital Signs: Vital Signs - Last Taken Temp 37.1 C 08/13/18 06:48 Pulse 68 08/13/18 06:48 Resp 18 08/13/18 06:48 BP 152/53 H 08/13/18 06:48 Pulse Ox 98 08/13/18 06:48 Constitutional: Present: Alert, Oriented x3, Cooperative, No distress ENT Exam: Present: hearing grossly normal Eye Exam: bilateral eye: normal inspection, PERRL, EOMI Neck: Present: supple Back Exam: Present: normal inspection Respiratory: Present: lungs clear, normal breath sounds, no respiratory distress, no accessory muscle use Cardiovascular/Chest: Present: regular rate, rhythm, no murmur Abdomen: Present: Normal bowel sounds, soft, nontender, nondistended, no rebound tenderness, no hepatospenomegaly Extremity: Present: no pedal edema, no calf tenderness Skin Exam: Present: normal color Neurologic: Present: instrument adjuster II-XII nml as tested, normal mood/affect, oriented x 3, motor weakness Appearance: Present: appropriate appearance, appropriate insight, neat, impaired recent memory Eye contact: Present: cooperative, good eye contact, normal speech Thoughts: Present: normal thought pattern, no apparent hallucination Diagnostic Studies: Abnormal Lab Results 08/12/18 08/12/18 08/12/18 Range/Units 19:12 19:20 19:20 Eosinophils % 3.9 H (0.0-3.0) % Basophils % 1.4 H (0.0-1.0) % Sodium 123 L (132-142) mmol/L Plasma Sodium 123 L (130-142) mmol/L Chloride 89 L (97-106) mmol/L Creatinine (0.4-1.4) mg/dL Est GFR (Non-Af Amer) 167 H (60-130) mL/min Urine Blood 25 H (NEGATIVE) /ul Urine Nitrate Positive H (NEGATIVE) Ur Leukocyte Esterase 100 H (NEGATIVE) /ul Urine RBC 5-10 H (0-5) /hpf Urine WBC 5-10 H (0-5) /hpf Urine Bacteria 2+ H (NONE) 08/13/18 Range/Units 07:28 Eosinophils % (0.0-3.0) % Basophils % (0.0-1.0) % Sodium (132-142) mmol/L Plasma Sodium (130-142) mmol/L Chloride 96 L (97-106) mmol/L Creatinine 0.39 L (0.4-1.4) mg/dL Est GFR (Non-Af Amer) 176 H (60-130) mL/min Urine Blood (NEGATIVE) /ul Urine Nitrate (NEGATIVE) Ur Leukocyte Esterase (NEGATIVE) /ul Urine RBC (0-5) /hpf Urine WBC (0-5) /hpf Urine Bacteria (NONE) Laboratory Results WBC 6.7 K/mm3 (4.0-10.5) 08/12/18 19:20 RBC 4.20 M/mm3 (4.2-5.4) 08/12/18 19:20 Hgb 12.5 gm/dL (12.5-16.0) 08/12/18 19:20 Hct 37.3 % (37.0-47.0) 08/12/18 19:20 MCV 88.8 fl (78-100) 08/12/18 19:20 MCH 29.8 pg (27-31) 08/12/18 19:20 MCHC 33.5 g/dl (32-36) 08/12/18 19:20 RDW 13.3 % (11.5-14.0) 08/12/18 19:20 Plt Count 401 K/mm3 (150-450) 08/12/18 19:20 MPV 8.6 fl (8-12.5) 08/12/18 19:20 Immature Gran % (Auto) 0.30 % (0.001-0.429) 08/12/18 19:20 Immature Gran # (Auto) 0.02 K/mm3 (0.000-0.0310) 08/12/18 19:20 57.4 % (42-75.0) 08/12/18 19:20 28.1 % (20-51) 08/12/18 19:20 8.9 % (0.0-9) 08/12/18 19:20 3.9 % (0.0-3.0) H 08/12/18 19:20 1.4 % (0.0-1.0) H 08/12/18 19:20 Nucleated RBC % 0.0 k/mm3 (0-1) 08/12/18 19:20 3.8 K/mm3 (1.3-6.0) 08/12/18 19:20 1.87 k/mm3 (1.5-3.5) 08/12/18 19:20 0.6 k/mm3 (0.0-1.0) 08/12/18 19:20 0.3 k/mm3 (0.0-0.7) 08/12/18 19:20 Absolute Basophils 0.1 k/mm3 (0.0-0.1) 08/12/18 19:20 Sodium 132 mmol/L (132-142) 08/13/18 07:28 132 mmol/L (130-142) 08/13/18 07:28 Potassium 4.1 mmol/L (3.4-4.6) 08/13/18 07:28 Chloride 96 mmol/L (97-106) L 08/13/18 07:28 Carbon Dioxide 29.9 mmol/L (24-32.6) 08/13/18 07:28 10.2 mmol/L (6.8-13.8) 08/13/18 07:28 BUN 5 mg/dL (3-23) 08/13/18 07:28 0.39 mg/dL (0.4-1.4) L 08/13/18 07:28 Est GFR (Non-Af Amer) 176 mL/min (60-130) H 08/13/18 07:28 12.8 (9.0-21.6) 08/13/18 07:28 89 mg/dL (70-110) 08/13/18 07:28 1.5 mmol/L (0.4-2.0) 08/12/18 19:20 Calcium 8.8 mg/dL (7.9-10.9) 08/13/18 07:28 Calcium Adj for Albumin 8.8 mg/dL (8.4-10.2) 08/12/18 19:20 0.2 mg/dL (0.0-1.1) 08/12/18 19:20 AST 21 U/L (0-48) 08/12/18 19:20 ALT 29 U/L (19-67) 08/12/18 19:20 85 U/L (50-170) 08/12/18 19:20 C-Reactive Prot, Quant 0.6 mg/dL (0.0-0.9) 08/12/18 19:20 6.9 gm/dL (6.2-8.2) 08/12/18 19:20 3.5 gm/dl (3.4-5.0) 08/12/18 19:20 Yellow 08/12/18 19:12 Clear (CLEAR) 08/12/18 19:12 6.5 pH (5.0-7.0) 08/12/18 19:12 Ur Specific [place] 1.020 SP.GR. (1.005-1.010) 08/12/18 19:12 Negative mg/dL (NEGATIVE) 08/12/18 19:12 Negative mg/dL (NEGATIVE) 08/12/18 19:12 Negative mg/dL (NEGATIVE) 08/12/18 19:12 25 /ul (NEGATIVE) H 08/12/18 19:12 Positive (NEGATIVE) H 08/12/18 19:12 Negative mg/dl (NEGATIVE) 08/12/18 19:12 Normal EU/dl (NORMAL) 08/12/18 19:12 Ur Leukocyte Esterase 100 /ul (NEGATIVE) H 08/12/18 19:12 5-10 /hpf (0-5) H 08/12/18 19:12 5-10 /hpf (0-5) H 08/12/18 19:12 Ur Epithelial Cells 0-5 /hpf (0-5) 08/12/18 19:12 2+ (NONE) H 08/12/18 19:12 Culture to follow 08/12/18 19:12 Assessment/Plan - Assessment/Plan (1) Altered mental status Problem: Resolved Qualifiers: Altered mental status type: disorientation Qualified Code(s): R41.0 - Disorientation, unspecified (2) Hyponatremia Assessment: will have her add more salt into her diet. Problem: Resolved (3) Chronic indwelling Huddleston catheter Problem: Chronic (4) UTI (urinary tract infection) Problem: Acute Qualifiers: Urinary tract infection type: acute cystitis Hematuria presence: with hematuria Qualified Code(s): N30.01 - Acute cystitis with hematuria (5) multiple sclerosis w/ neurogenic bladder Problem: Chronic (6) Discharge planning issues Assessment: espect discharge today with IV abx for 5 days at the [facility] Problem: Acute
--- NOTE | 2018-08-13 08:34 | DS ---
(1) Altered mental status Problem: Resolved Qualifiers: Altered mental status type: disorientation Qualified Code(s): R41.0 - Disorientation, unspecified (2) Hyponatremia Problem: Resolved (3) Chronic indwelling Huddleston catheter Problem: Chronic (4) UTI (urinary tract infection) Problem: Acute Qualifiers: Urinary tract infection type: acute cystitis Hematuria presence: with hematuria Qualified Code(s): N30.01 - Acute cystitis with hematuria (5) multiple sclerosis w/ neurogenic bladder Problem: Chronic (6) Discharge planning issues Problem: Acute Description of Stay: pt. was admitted for AMS with hyponatremia (Na of 123) and a UA concerning for UTI. Due to her MS with neurogenic bladder and indwelling catheter at the late time of day, she was placed in obs to start IV abx and given NS which corrected both the AMS and the Na to 132 this am. She was back to her baseline this am. Due to resistant bacteria on previous cultures and improvement of her sx, we will continue her on the cefepime bid x 5 days and have her add more salt into her diet as her hyponatremia could be caused by her drinking lots of water to try to keep her bladder flushed. Procedures Performed: none Results and Findings: Pending Mircobiology Results 08/12/18 19:12 Urine,Catheterized Urine Culture - Preliminary No Growth Lab Pending Results 08/12/18 19:12: Urine Color Yellow, Urine Appearance Clear, Urine pH 6.5, Ur Specific [place] 1.020, Urine Protein Negative, Urine Glucose (UA) Negative, Urine Ketones Negative, Urine Blood 25 H, Urine Nitrate Positive H, Urine Bilirubin Negative, Urine Urobilinogen Normal, Ur Leukocyte Esterase 100 H, Urine RBC 5-10 H, Urine WBC 5-10 H, Ur Epithelial Cells 0-5, Urine Bacteria 2+ H, Urine Culture Comments Culture to follow 08/12/18 19:20: WBC 6.7, RBC 4.20, Hgb 12.5, Hct 37.3, MCV 88.8, MCH 29.8, MCHC 33.5, RDW 13.3, Plt Count 401, MPV 8.6, Immature Gran % (Auto) 0.30, Immature Gran # (Auto) 0.02, Neutrophils % 57.4, Lymphocytes % 28.1, Monocytes % 8.9, Eosinophils % 3.9 H, Basophils % 1.4 H, Nucleated RBC % 0.0, Neutrophils # 3.8, Lymphocytes # 1.87, Monocytes # 0.6, Eosinophils # 0.3, Absolute Basophils 0.1 08/12/18 19:20: Sodium 123 L, Plasma Sodium 123 L, Potassium 4.1, Chloride 89 L, Carbon Dioxide 30.0, Anion Gap 8.1, BUN 8, Creatinine 0.41, Est GFR (Non-Af Amer) 167 H, BUN/Creatinine Ratio 19.5, Random Glucose 89, Calcium 8.7, Calcium Adj for Albumin 8.8, Total Bilirubin 0.2, AST 21, ALT 29, Alkaline Phosphatase 85, C-Reactive Prot, Quant 0.6, Total Protein 6.9, Albumin 3.5 08/12/18 19:20: Lactic Acid, Venous 1.5 08/13/18 07:28: Sodium 132, Plasma Sodium 132, Potassium 4.1, Chloride 96 L, Carbon Dioxide 29.9, Anion Gap 10.2, BUN 5, Creatinine 0.39 L, Est GFR (Non-Af Amer) 176 H, BUN/Creatinine Ratio 12.8, Random Glucose 89, Calcium 8.8 Discharge Location: [facility] Disposition: Home self-care Condition: Fair Discharge Activity: Activity as tolerated Discharge Diet: General/regular food - added salt to food to keep sodium up or drinking gatorade as hydration liquid Referrals: Isaiah Orellana MD [Primary Care Provider] - Two Weeks Prescriptions (Any new or edited meds): Cefepime HCl [Maxipime] 2 gm IV Q12H #9 vial Complete Home Medications List: Complete Home Medication List: Aspirin [Aspirin Chewable] 81 mg PO DAILY 07/19/12 Calcium Carbonate/Vitamin D3 [Calcium 600-Vit D3 200 Tablet] 1 ea PO 0700,1100,1500 07/19/12 Multivitamin [Multivitamins] 1 ea PO DAILY 07/19/12 Rosuvastatin Calcium [Crestor] 20 mg PO HS 07/19/12 predniSONE [Prednisone] 5 mg PO DAILY 07/19/12 Alendronate Sodium [Fosamax] 70 mg PO TU 11/23/12 Baclofen 20 mg PO 0700,1100,1500,1900 02/27/16 Polyethylene Glycol 3350 [Miralax] 17 gm PO DAILY PRN 04/24/16 Acetaminophen [Tylenol] 650 mg PO QID PRN #0 tab 04/28/16 Levothyroxine Sodium [Synthroid] 88 mcg PO DAILY 09/07/17 Atenolol [Tenormin] 25 mg PO DAILY #30 tab 09/12/17 gabapentin 800 mg tablet 800 mg PO QID 11/02/17 methenamine mandelate 1 gram tablet 1 g PO QID 11/02/17 Imipramine HCl [Tofranil] 25 mg PO BID tab 11/22/17 Metoprolol Succinate [Toprol Xl] 50 mg PO DAILY #30 tablet.sa 11/22/17 sodium chloride 0.9 % irrigation solution 1 irrig IR DAILY 8 Days #1000 ml 01/25/18 carBAMazepine [Tegretol] 3 tab PO BID 05/17/18 potassium chloride ER 20 mEq tablet,extended release 20 meq PO BID #60 tab 03/04 Methadone HCl 5 mg PO DAILY 08/12/18 Cefepime HCl [Maxipime] 2 gm IV Q12H #9 vial 08/13/18
[2018-08-13] MEDS ORDERED: ASPIRIN 81 MG TAB.CHEW PO SCH (09:00)
[2018-08-13] MEDS ORDERED: METOPROLOL SUCCINATE 50 MG TABLET.SA PO SCH (09:00)
[2018-08-13] MEDS ORDERED: GABAPENTIN 400 MG CAPSULE PO SCH (09:00)
[2018-08-13] MEDS ORDERED: METHADONE HCL 10 MG TABLET PO SCH (09:00)
[2018-08-13] MEDS ORDERED: POTASSIUM CHLORIDE 20 MEQ TABLET.SA PO SCH (09:00)
[2018-08-13] MEDS ORDERED: IMIPRAMINE HCL 25 MG TABLET PO SCH (09:00)
[2018-08-13] MEDS ORDERED: LEVOTHYROXINE SODIUM 88 MCG TABLET PO SCH (09:00)
[2018-08-13] MEDS ORDERED: METHENAMINE MANDELATE 1 GM TABLET PO SCH (09:00)
[2018-08-13] MEDS ORDERED: carBAMazepine 200 MG TABLET PO SCH (09:00)
[2018-08-13] MEDS ORDERED: ATENOLOL 25 MG TABLET PO SCH (09:00)
[2018-08-13] MEDS ORDERED: MULTIVITAMINS 1 CAP CAPSULE PO SCH (09:00)
[2018-08-13] MEDS ORDERED: BACLOFEN 10 MG TABLET PO SCH (11:00)
[2018-08-13] MEDS ORDERED: CALCIUM CARBONATE/VITAMIN D3 1 TAB TABLET PO SCH (11:00)
[2018-08-13 11:09] VITALS: BP 145/60
[2018-08-14] MEDS ORDERED: ALENDRONATE SODIUM 70 MG TABLET PO ONE (06:00)
[2018-08-20] MEDS ORDERED: ALENDRONATE SODIUM 70 MG TABLET PO SCH (06:00)
== END 2018-08-13 11:40 ==
LOC: MS 18:48 → ER 18:48 → MS 21:15
PROVIDERS: ADMIT Family Medicine; ATTEND Family Medicine
DX: N30.01 Acute cystitis with hematuria; G35 Multiple sclerosis; E87.1 Hypo-osmolality and hyponatremia; R41.82 Altered mental status, unspecified; N31.9 Neuromuscular dysfunction of bladder, unspecified
CPT/HCPCS: 36415; 80048; 80053; 81001; 83605; 85025; 86140; 87040; 87081; 87086; 93005; 96361; 96365; 96366; 99285; G0378

== ENCOUNTER 2020-02-26 00:09 | Observation (INO) ==
[2020-02-26] MEDS ORDERED: NORMAL SALINE 1,000 ML IV PRN (01:49)
--- NOTE | 2020-02-26 01:56 | ERNOTE ---
ER Female HPI Stated Complaint: sent from alf because she is believed to be uroseptic she normally is more sleepy and confused when she gets a urine infection Time Seen by Provider: 02/26/20 00:39 Source: EMS, RN notes reviewed Immunizations: IMMUNIZATION HX Immunizations Up to Date Yes History of Influenza Vaccine More Information Required Hx Pneumococcal Vaccination More Information Required Allergies/Adverse Reactions: Allergies No Known Allergies Allergy (Verified 06/26/19 15:49) Home Medications: HOME MEDICATIONS Aspirin [Aspirin Chewable] 81 mg PO DAILY 07/19/12 [Last Taken 08/12/18 07:00] Calcium Carbonate/Vitamin D3 [Calcium 600-Vit D3 200 Tablet] 1 ea PO 0 700,1100,1500 07/19/12 [Last Taken 08/12/18 15:00] Rosuvastatin Calcium [Crestor] 20 mg PO HS 07/19/12 [Last Taken 08/12/18 19:00] predniSONE [Prednisone] 5 mg PO DAILY 07/19/12 [Last Taken 08/12/18 07:00] Baclofen 20 mg PO 0700,1100,1500,1900 02/27/16 [Last Taken 08/12/18 19:00] Polyethylene Glycol 3350 [Miralax] 17 gm PO DAILY 04/24/16 [Last Taken 18] Acetaminophen [Tylenol] 650 mg PO QID PRN #0 tab 04/28/16 [Last Taken Unknown] Levothyroxine Sodium [Synthroid] 88 mcg PO DAILY 09/07/17 [Last Taken 08/12/18 07:00] Atenolol [Tenormin] 25 mg PO DAILY #30 tab 09/12/17 [Last Taken 08/12/18 07:00] gabapentin 800 mg tablet 800 mg PO QID 11/02/17 [Last Taken 08/12/18 19:00] Metoprolol Succinate [Toprol Xl] 50 mg PO DAILY #30 tablet.sa 11/22/17 [Last Taken 08/12/18 07:00] sodium chloride 0.9 % irrigation solution 1 irrig IR DAILY 8 Days #1000 ml 01/25/18 [Last Taken 08/12/18] carBAMazepine [Tegretol] 2 tab PO BID 05/17/18 [Last Taken 08/12/18 19:00] potassium chloride 20 mEq tablet,extended release 20 meq PO BID #60 tab 05/27/18 [Last Taken 08/12/18 19:00] loratadine 10 mg tablet 10 mg PO DAILY #30 tab 09/17/18 [Last Taken Unknown] multivitamin 1 tab PO DAILY #28 tab 10/18/18 [Last Taken Unknown] oxybutynin chloride 5 mg tablet,extended release 24 hr 5 mg PO DAILY #30 tab 06/03/19 [Last Taken Unknown] methenamine hippurate 1 gram tablet 1 g PO BID #60 tab 02/13/20 [Last Taken Un known] methadone 5 mg tablet 5 mg PO DAILY #30 tab 02/17/20 [Last Taken Unknown] Ceramides 1,3,6-11 [Cerave Moisturizing] 453 gm TOPICAL DAILY PRN 02/26/20 [Last Taken Unknown] Imipramine HCl [Tofranil] 25 mg PO HS 02/26/20 [Last Taken Unknown] Nystatin [Mycostatin Cream] 1 appl TOPICAL TID PRN 02/26/20 [Last Taken Unknown] Omeprazole 10 mg PO DAILY 02/26/20 [Last Taken Unknown] - History of Present Illness Narrative: possible uti with change in mental status. Associated Symptoms: Present: other - fatigue pt has dark urine also in the catheter bag Review of Systems - Review of Systems Constitutional: Present: fatigue Genitourinary: Present: See HPI All Other Systems: All systems neg except as marked Medical History (Last Reviewed 02/26/20 @ 01:52 by Daniela Cheng MD) Vitamin D deficiency (Chronic) Onset Date: Unknown Trigeminal neuralgia (Chronic) Onset Date: Unknown Seborrhea (Chronic) Onset Date: ~07/11/13 face Paraplegia (Chronic) Onset Date: ~08/20/11 Osteoporosis (Chronic) Onset Date: Unknown Multiple sclerosis (Chronic) Onset Date: Unknown Keratosis seborrheica (Chronic) Onset Date: ~02/19/14 Hypothyroidism (Chronic) Onset Date: Unknown Hypertension (Chronic) Onset Date: Unknown Hyperlipidemia (Chronic) Onset Date: Unknown Fibrocystic breast disease (Chronic) Onset Date: Unknown Chronic pain syndrome (Chronic) Onset Date: Unknown Chronic indwelling [place] catheter (Chronic) has suprapubic catheter for neurogenic bladder Frequent UTI (Chronic) will do standing order for UA if increased weakness, confusion, etc. Multiple sclerosis (Chronic) HLD (hyperlipidemia) (Chronic) Hypothyroidism (Chronic) Bronchitis Onset Date: ~12/22/13 Chronic UTI Onset Date: Unknown Mild concentric left ventricular hypertrophy Onset Date: ~07/27/12 Seborrheic keratoses Onset Date: ~07/11/13 Urinary tract infection Onset Date: ~12/22/13 Surgical History: Surgical History (Last Reviewed 02/26/20 @ 01:52 by Daniela Cheng MD) H/O esophagogastroduodenoscopy Onset Date: ~08/26/02 History of breast biopsy Onset Date: ~05/20/02 bilat History of colonoscopy Onset Date: Unknown History of hysterectomy Onset Date: Unknown History of thyroid surgery Onset Date: ~12/20/05 right thyroid bx Family History: Family History (Last Reviewed 02/26/20 @ 01:52 by Daniela Cheng MD) Brother Kidney stones Father Cancer lung Grandmother Cancer colon Sister CVA (cerebral vascular accident) Kidney stones Social History: (Last Reviewed 02/26/20 @ 01:53 by Daniela Cheng MD) Social History: alf: Yes current occupational status: disabled Tobacco: Smoking Status: Former smoker Alcohol: alcohol intake: never Substance Use: substance use type: does not use Physical Exam - Physical Exam General Appearance: Present: sleeping/easy to arouse Head Exam: Present: normal inspection, no evidence of injury Eye Exam: Normal inspection: bilateral Ears, Nose, Throat: Present: other - dry mucus membranes Neck: Present: normal inspection Respiratory: Present: no respiratory distress, normal breath sounds, no accessory muscle use, chest nontender Cardiovascular/Chest: Present: regular rate, rhythm, normal peripheral pulses Gastrointestinal/Abdominal: Present: soft, other - mild suprapubic Back Exam: Present: no CVA tenderness Extremity Exam: Present: other - heal protectors in place. Absent: extremity edema Neurological Exam: Present: other - pt is arousable but sleepy Skin Exam: Present: normal color, warm/dry Progress - Date and Time Seen: Date and Time: 02/26/20 04:30 case sharmin arroyo who willacceptto the service and requests continued hydration antibiotics and repeat labs in the morning. - Vital Signs Vital Signs: Vital Signs 02/26/20 00:21 02/26/20 01:40 Temperature 36.4 C 36.5 C Pulse Rate 66 67 Respiratory Rate 16 9 L Blood Pressure 143/63 120/58 O2 Sat by Pulse Oximetry 96 98 - EKG EKG #1 EKG: NSR, nonspecific ST T wave changes - X-Ray X-Ray #1 X-Ray: chest - no significant findings - Progress/Reassessment Chief Complaint: Genitourinary Problem Progress:: Improved Plan - Plan Plan: [facility] service for iv abx for uti with indwelling valiente Departure Clinical Impression: UTI (urinary tract infection) Qualifiers: Urinary tract infection type: catheter-associated UTI Indwelling urinary catheter type: indwelling urethral catheter Encounter type: initial encounter Qualified Code(s): T83.511A - Infection and inflammatory reaction due to indwelling urethral catheter, initial encounter; N39.0 - Urinary tract infection, site not specified - Departure Disposition: Short Term Hospital Inpatient Condition: Good
[2020-02-26 02:04] LABS: Hematocrit 36.9 % (37.0-47.0); Mean Cell Volume 87.2 fl (78-100); Mean Corpuscular Hemoglobin 28.4 pg (27-31); Mean Corpuscular Hgb Conc 32.5 g/dl (32-36); Mean Platelet Volume 8.5 fl (8-12.5); Neutrophil % 65.8 % (42-75.0); Platelet Count 378 K/mm3 (150-450); Red Blood Count 4.23 M/mm3 (4.2-5.4); Red Cell Distribution Width 14.3 % (11.5-14.0); White Blood Count 10.6 K/mm3 (4.0-10.5)
[2020-02-26 02:22] LABS: Albumin * 3.1 gm/dl (3.4-5.0); Anion Gap 7.2 mmol/L (6.8-13.8); BUN/Creatinine Ratio 21.9 (9.0-21.6); Bilirubin, Total 0.3 mg/dL (0.0-1.1); Ca. Corrected For Albumin 9.3 mg/dL (8.4-10.2); Calcium * 8.9 mg/dL (7.9-10.9); Carbon Dioxide 30.1 mmol/L (24-32.6); Potassium 5.3 mmol/L (3.4-4.6); Total Protein 6.7 gm/dL (6.2-8.2)
[2020-02-26 02:34] LABS: Urine Bilirubin 1 mg/dl (NEGATIVE); Urine Blood 250 /ul (NEGATIVE); Urine Ketone Negative (NEGATIVE); Urine Nitrite Negative (NEGATIVE); Urine Protein 100 mg/dL (NEGATIVE); Urine Urobilinogen Normal (NORMAL)
[2020-02-26 02:42] LABS: Urine Appearance Slightly Cloudy (CLEAR); Urine Bacteria 3+; Urine Color Dark Yellow; Urine RBC 25-50 /hpf (0-5); Urine WBC >50 /hpf (0-5)
[2020-02-26] MEDS ORDERED: cefTRIAXone SODIUM 1,000 MG/100 ML BAG IV ONE (02:55)
[2020-02-26 06:49] LABS: Hematocrit 34.8 % (37.0-47.0); Hemoglobin 11.2 gm/dL (12.5-16.0); Mean Cell Volume 88.1 fl (78-100); Mean Corpuscular Hemoglobin 28.4 pg (27-31); Mean Corpuscular Hgb Conc 32.2 g/dl (32-36); Mean Platelet Volume 8.7 fl (8-12.5); Neutrophil % 66.8 % (42-75.0); Platelet Count 380 K/mm3 (150-450); Red Blood Count 3.95 M/mm3 (4.2-5.4); Red Cell Distribution Width 14.2 % (11.5-14.0)
[2020-02-26 07:06] LABS: Albumin * 2.9 gm/dl (3.4-5.0); Anion Gap 7.2 mmol/L (6.8-13.8); BUN/Creatinine Ratio 20.4 (9.0-21.6); Bilirubin, Total 0.3 mg/dL (0.0-1.1); Ca. Corrected For Albumin 9.1 mg/dL (8.4-10.2); Calcium * 8.5 mg/dL (7.9-10.9); Potassium 4.2 mmol/L (3.4-4.6); Total Protein 6.4 gm/dL (6.2-8.2)
[2020-02-26] MEDS ORDERED: ACETAMINOPHEN 325 MG TABLET PO PRN (09:32)
[2020-02-26] MEDS ORDERED: predniSONE 5 MG TABLET PO SCH (09:45)
[2020-02-26] MEDS ORDERED: METHENAMINE MANDELATE 1 GM TABLET PO SCH (09:45)
[2020-02-26] MEDS ORDERED: ATENOLOL 25 MG TABLET PO SCH (09:45)
[2020-02-26] MEDS ORDERED: PANTOPRAZOLE SODIUM 20 MG TABLET.DR PO SCH (09:45)
[2020-02-26] MEDS ORDERED: METOPROLOL SUCCINATE 50 MG TABLET.SA PO SCH (09:45)
[2020-02-26] MEDS ORDERED: ASPIRIN 81 MG TAB.CHEW PO SCH (09:45)
[2020-02-26] MEDS ORDERED: LORATADINE 10 MG TABLET PO SCH (09:45)
[2020-02-26] MEDS ORDERED: OXYBUTYNIN CHLORIDE 5 MG TABLET PO SCH (09:45)
[2020-02-26] MEDS ORDERED: carBAMazepine 200 MG TABLET PO SCH (09:45)
[2020-02-26] MEDS ORDERED: LEVOTHYROXINE SODIUM 88 MCG TABLET PO SCH (09:45)
[2020-02-26] MEDS ORDERED: POTASSIUM CHLORIDE 20 MEQ TABLET.SA PO SCH (09:45)
[2020-02-26] MEDS: GABAPENTIN 400 MG CAPSULE PO SCH ×2 (10:55→12:25)
[2020-02-26] MEDS ORDERED: BACLOFEN 10 MG TABLET PO SCH (11:00)
--- NOTE | 2020-02-26 12:56 | HPDIS ---
Chief Complaint - Chief Complaint Date of Service: 02/26/20 Time of Service: 10:00 Chief Complaint: Altered mentation History of Present Illness: 64-year-old female with a past medical history of multiple sclerosis, paraplegia, hypothyroidism, hypertension, hyperlipidemia, recurrent UTIs, chronic indwelling suprapubic catheter, left ventricular hypertrophy, trigeminal neuralgia presents from the [facility] with altered mental status. She presented to the emergency room and was found to have hyponatremia 127, mild hyperkalemia 5.3, positive UA, mild leukocytosis elevated WBC of 10.6. She was given IV fluids and started on ceftriaxone for the UTI. Medical History (Last Reviewed 02/26/20 @ 09:34 by Nir Maier RN) Vitamin D deficiency (Chronic) Onset Date: Unknown Trigeminal neuralgia (Chronic) Onset Date: Unknown Seborrhea (Chronic) Onset Date: ~07/11/13 face Paraplegia (Chronic) Onset Date: ~08/20/11 Osteoporosis (Chronic) Onset Date: Unknown Multiple sclerosis (Chronic) Onset Date: Unknown Keratosis seborrheica (Chronic) Onset Date: ~02/19/14 Hypothyroidism (Chronic) Onset Date: Unknown Hypertension (Chronic) Onset Date: Unknown Hyperlipidemia (Chronic) Onset Date: Unknown Fibrocystic breast disease (Chronic) Onset Date: Unknown Chronic pain syndrome (Chronic) Onset Date: Unknown Chronic indwelling Huddleston catheter (Chronic) has suprapubic catheter for neurogenic bladder Frequent UTI (Chronic) will do standing order for UA if increased weakness, confusion, etc. Multiple sclerosis (Chronic) HLD (hyperlipidemia) (Chronic) Hypothyroidism (Chronic) Urinary tract infection Onset Date: ~12/22/13 Bronchitis Onset Date: ~12/22/13 Chronic UTI Onset Date: Unknown Mild concentric left ventricular hypertrophy Onset Date: ~07/27/12 Seborrheic keratoses Onset Date: ~07/11/13 Surgical History: Surgical History (Last Reviewed 02/26/20 @ 09:34 by Nir Maier RN) H/O esophagogastroduodenoscopy Onset Date: ~08/26/02 History of breast biopsy Onset Date: ~05/20/02 bilat History of colonoscopy Onset Date: Unknown History of hysterectomy Onset Date: Unknown History of thyroid surgery Onset Date: ~12/20/05 right thyroid bx Family History: Family History (Last Reviewed 02/26/20 @ 09:34 by Nir Maier RN) Brother Kidney stones Father Cancer lung Grandmother Cancer colon Sister CVA (cerebral vascular accident) Kidney stones Social History: (Last Reviewed 02/26/20 @ 09:34 by Nir Maier RN) Social History: halfway: Yes current occupational status: disabled Tobacco: Smoking Status: Former smoker Alcohol: alcohol intake: never Substance Use: substance use type: does not use Review Of Systems (GEN) - Review of Systems Generalized/Overall Review: Absent: Fever Respiratory: Absent: Shortness of Breath Cardiac: Absent: Chest Pain Abdominal: Absent: Abdominal Pain Misc: All systems neg except as marked Immunizations: IMMUNIZATION HX Immunizations Up to Date Yes History of Influenza Vaccine More Information Required Hx Pneumococcal Vaccination More Information Required Allergies/Adverse Reactions: Allergies Allergy/AdvReac Type Severity Reaction Status Date / Time No Known Allergies Allergy Verified 02/26/20 09:39 Home Medications: HOME MEDICATIONS Aspirin [Aspirin Chewable] 81 mg PO DAILY 07/19/12 [Last Taken 08/12/18 07:00] Calcium Carbonate/Vitamin D3 [Calcium 600-Vit D3 200 Tablet] 1 ea PO 0700,1100,1500 07/19/12 [Last Taken 08/12/18 15:00] Rosuvastatin Calcium [Crestor] 20 mg PO HS 07/19/12 [Last Taken 08/12/18 19:00] predniSONE [Prednisone] 5 mg PO DAILY 07/19/12 [Last Taken 08/12/18 07:00] Baclofen 20 mg PO 0700,1100,1500,1900 02/27/16 [Last Taken 08/12/18 19:00] Polyethylene Glycol 3350 [Miralax] 17 gm PO DAILY 04/24/16 [Last Taken 18] Acetaminophen [Tylenol] 650 mg PO QID PRN #0 tab 04/28/16 [Last Taken Unknown] Levothyroxine Sodium [Synthroid] 88 mcg PO DAILY 09/07/17 [Last Taken 08/12/18 07:00] Atenolol [Tenormin] 25 mg PO DAILY #30 tab 09/12/17 [Last Taken 08/12/18 07:00] gabapentin 800 mg tablet 800 mg PO QID 11/02/17 [Last Taken 08/12/18 19:00] Metoprolol Succinate [Toprol Xl] 50 mg PO DAILY #30 tablet.sa 11/22/17 [Last Taken 08/12/18 07:00] sodium chloride 0.9 % irrigation solution 1 irrig IR DAILY 8 Days #1000 ml 01/25/18 [Last Taken 08/12/18] carBAMazepine [Tegretol] 2 tab PO BID 05/17/18 [Last Taken 08/12/18 19:00] potassium chloride 20 mEq tablet,extended release 20 meq PO BID #60 tab 05/27/18 [Last Taken 08/12/18 19:00] loratadine 10 mg tablet 10 mg PO DAILY #30 tab 09/17/18 [Last Taken Unknown] multivitamin 1 tab PO DAILY #28 tab 10/18/18 [Last Taken Unknown] oxybutynin chloride 5 mg tablet,extended release 24 hr 5 mg PO DAILY #30 tab 06/03/19 [Last Taken Unknown] methenamine hippurate 1 gram tablet 1 g PO BID #60 tab 02/13/20 [Last Taken Unknown] methadone 5 mg tablet 5 mg PO DAILY #30 tab 02/17/20 [Last Taken Unknown] Cefpodoxime Proxetil 100 mg PO BID 5 Days #10 tab 02/26/20 [Last Taken Unknown] Ceramides 1,3,6-11 [Cerave Moisturizing] 453 gm TOPICAL DAILY PRN 02/26/20 [Last Taken Unknown] Imipramine HCl [Tofranil] 25 mg PO HS 02/26/20 [Last Taken Unknown] Nystatin [Mycostatin Cream] 1 appl TOPICAL TID PRN 02/26/20 [Last Taken Unknown] Omeprazole 10 mg PO DAILY 02/26/20 [Last Taken Unknown] Exam - Exam Vital Signs: Vital Signs - Last Taken Temp 36.2 C 02/26/20 09:20 Pulse 57 L 02/26/20 10:56 Resp 16 02/26/20 09:20 BP 158/72 H 02/26/20 10:56 Pulse Ox 97 02/26/20 09:20 Constitutional: Present: Alert, Oriented x3, Cooperative, Well developed, Well nourished, Elderly ENT Exam: Present: hearing grossly normal Eye Exam: bilateral eye: normal inspection, EOMI Neck: Present: non-tender, supple. Absent: lymphadenopathy (R), lymphadenopathy (L) Back Exam: Present: normal inspection Respiratory: Present: lungs clear, no respiratory distress, no accessory muscle use, No wheezing. Absent: crackles, rhonchi Cardiovascular/Chest: Present: normal peripheral pulses, regular rate, rhythm, no edema, no murmur Peripheral Pulses: dorsalis-pedis (R): 1+, dorsalis-pedis (L): 1+ Abdomen: Present: Normal bowel sounds, soft, nontender /Rectal: Present: Other - Suprapubic catheter in place Extremity: Present: non-tender, no pedal edema Skin Exam: Present: normal color, warm/dry Neurologic: Present: alert, normal mood/affect Appearance: Present: appropriate appearance, appropriate insight Eye contact: Present: cooperative Thoughts: Present: normal thought pattern, normal mood /affect Diagnostic Studies: Abnormal Lab Results 02/26/20 02/26/20 02/26/20 Range/Units 02:00 02:00 02:29 WBC 10.6 H (4.0-10.5) K/mm3 RBC (4.2-5.4) M/mm3 Hgb 12.0 L (12.5-16.0) gm/dL Hct 36.9 L (37.0-47.0) % RDW 14.3 H (11.5-14.0) % Immature Gran # (Auto) 0.04 H (0.000-0.0310) K/mm3 Eosinophils % 3.5 H (0.0-3.0) % Neutrophils # 7.0 H (1.3-6.0) K/mm3 Sodium 127 L (132-142) mmol/L Plasma Sodium 127 L (130-142) mmol/L Potassium 5.3 H D (3.4-4.6) mmol/L Chloride 95 L (97-106) mmol/L BUN/Creatinine Ratio 21.9 H (9.0-21.6) Albumin 3.1 L (3.4-5.0) gm/dl Urine pH 8.0 H (5.0-7.0) pH Urine Protein 100 H (NEGATIVE) mg/dL Urine Blood 250 H (NEGATIVE) /ul Urine Bilirubin 1 H (NEGATIVE) mg/dl Prot Sulfosalicylic Acd 4+ H (0) mg/dL Ur Leukocyte Esterase 500 H (NEGATIVE) /ul Urine RBC 25-50 H (0-5) /hpf Urine WBC >50 H (0-5) /hpf Urine Bacteria 3+ H (NONE) 02/26/20 02/26/20 02/26/20 Range/Units 03:25 06:23 06:23 WBC (4.0-10.5) K/mm3 RBC 3.95 L (4.2-5.4) M/mm3 Hgb 11.2 L (12.5-16.0) gm/dL Hct 34.8 L (37.0-47.0) % RDW 14.2 H (11.5-14.0) % Immature Gran # (Auto) (0.000-0.0310) K/mm3 Eosinophils % 3.8 H (0.0-3.0) % Neutrophils # (1.3-6.0) K/mm3 Sodium 130 L (132-142) mmol/L Plasma Sodium (130-142) mmol/L Potassium 4.9 H (3.4-4.6) mmol/L Chloride (97-106) mmol/L BUN/Creatinine Ratio (9.0-21.6) Albumin 2.9 L (3.4-5.0) gm/dl Urine pH (5.0-7.0) pH Urine Protein (NEGATIVE) mg/dL Urine Blood (NEGATIVE) /ul Urine Bilirubin (NEGATIVE) mg/dl Prot Sulfosalicylic Acd (0) mg/dL Ur Leukocyte Esterase (NEGATIVE) /ul Urine RBC (0-5) /hpf Urine WBC (0-5) /hpf Urine Bacteria (NONE) Laboratory Results WBC 9.0 K/mm3 (4.0-10.5) 02/26/20 06:23 RBC 3.95 M/mm3 (4.2-5.4) L 02/26/20 06:23 Hgb 11.2 gm/dL (12.5-16.0) L 02/26/20 06:23 Hct 34.8 % (37.0-47.0) L 02/26/20 06:23 MCV 88.1 fl (78-100) 02/26/20 06:23 MCH 28.4 pg (27-31) 02/26/20 06:23 MCHC 32.2 g/dl (32-36) 02/26/20 06:23 RDW 14.2 % (11.5-14.0) H 02/26/20 06:23 Plt Count 380 K/mm3 (150-450) 02/26/20 06:23 MPV 8.7 fl (8-12.5) 02/26/20 06:23 Immature Gran % (Auto) 0.30 % (0.001-0.429) 02/26/20 06:23 Immature Gran # (Auto) 0.03 K/mm3 (0.000-0.0310) 02/26/20 06:23 Neutrophils % 66.8 % (42-75.0) 02/26/20 06:23 Lymphocytes % 20.7 % (20-51) 02/26/20 06:23 Monocytes % 7.7 % (0.0-9) 02/26/20 06:23 Eosinophils % 3.8 % (0.0-3.0) H 02/26/20 06:23 Basophils % 0.7 % (0.0-1.0) 02/26/20 06:23 Nucleated RBC % 0.0 k/mm3 (0-1) 02/26/20 06:23 Neutrophils # 6.0 K/mm3 (1.3-6.0) 02/26/20 06:23 Lymphocytes # 1.87 k/mm3 (1.5-3.5) 02/26/20 06:23 Monocytes # 0.7 k/mm3 (0.0-1.0) 02/26/20 06:23 Eosinophils # 0.3 k/mm3 (0.0-0.7) 02/26/20 06:23 Absolute Basophils 0.1 k/mm3 (0.0-0.1) 02/26/20 06:23 Sodium 130 mmol/L (132-142) L 02/26/20 06:23 Plasma Sodium 130 mmol/L (130-142) 02/26/20 06:23 Potassium 4.2 mmol/L (3.4-4.6) 02/26/20 06:23 Chloride 98 mmol/L (97-106) 02/26/20 06:23 Carbon Dioxide 29.0 mmol/L (24-32.6) 02/26/20 06:23 Anion Gap 7.2 mmol/L (6.8-13.8) 02/26/20 06:23 BUN 11 mg/dL (3-23) 02/26/20 06:23 Creatinine 0.54 mg/dL (0.4-1.4) 02/26/20 06:23 Est GFR (Non-Af Amer) 120 mL/min (60-130) D 02/26/20 06:23 BUN/Creatinine Ratio 20.4 (9.0-21.6) 02/26/20 06:23 Random Glucose 90 mg/dL (70-110) 02/26/20 06:23 Lactic Acid, Venous 1.4 mmol/L (0.4-2.0) 02/26/20 01:23 Calcium 8.5 mg/dL (7.9-10.9) 02/26/20 06:23 Calcium Adj for Albumin 9.1 mg/dL (8.4-10.2) 02/26/20 06:23 Total Bilirubin 0.3 mg/dL (0.0-1.1) 02/26/20 06:23 AST 16 U/L (0-48) 02/26/20 06:23 ALT 25 U/L (19-67) 02/26/20 06:23 Alkaline Phosphatase 79 U/L (50-170) 02/26/20 06:23 Total Protein 6.4 gm/dL (6.2-8.2) 02/26/20 06:23 Albumin 2.9 gm/dl (3.4-5.0) L 02/26/20 06:23 Urine Color Dark yellow 02/26/20 02:29 Urine Appearance Slightly cloudy (CLEAR) 02/26/20 02:29 Urine pH 8.0 pH (5.0-7.0) H 02/26/20 02:29 Ur Specific [place] 1.020 SP.GR. (1.005-1.010) 02/26/20 02:29 Urine Protein 100 mg/dL (NEGATIVE) H 02/26/20 02:29 Urine Glucose (UA) Negative mg/dL (NEGATIVE) 02/26/20 02:29 Urine Ketones Negative mg/dL (NEGATIVE) 02/26/20 02:29 Urine Blood 250 /ul (NEGATIVE) H 02/26/20 02:29 Urine Nitrate Negative (NEGATIVE) 02/26/20 02:29 Urine Bilirubin 1 mg/dl (NEGATIVE) H 02/26/20 02:29 Urine Ictotest Negative (NEGATIVE) 02/26/20 02:29 Prot Sulfosalicylic Acd 4+ mg/dL (0) H 02/26/20 02:29 Urine Urobilinogen Normal EU/dl (NORMAL) 02/26/20 02:29 Ur Leukocyte Esterase 500 /ul (NEGATIVE) H 02/26/20 02:29 Urine RBC 25-50 /hpf (0-5) H 02/26/20 02:29 Urine WBC >50 /hpf (0-5) H 02/26/20 02:29 Ur Epithelial Cells 0-5 /hpf (0-5) 02/26/20 02:29 Urine Bacteria 3+ (NONE) H 02/26/20 02:29 Urine Culture Comments Culture to follow 02/26/20 02:29 SARS-CoV-2 (PCR) Not detected (NotDetected) 02/26/20 03:51 Assessment/Plan - Narrative Narrative: 64-year-old female with a past medical history of multiple sclerosis, paraplegia, hypothyroidism, hypertension, hyperlipidemia, recurrent UTIs, chronic indwelling suprapubic catheter, left ventricular hypertrophy, trigeminal neuralgia presents from the [facility] with altered mental status. She presented to the emergency room and was found to have hyponatremia 127, mild hyperkalemia 5.3, positive UA, mild leukocytosis elevated WBC of 10.6. She was givena IV fluids and started on ceftriaxone for the UTI. Today she appears well and is alert and oriented x3. She is back to her baseline and ready to be discharged home. I will send her home on oral antibiotics with Cefpodoxime 100 mg twice daily for 5 more days. Plan #1 continue on Cefpodoxime 100 mg twice daily #2 resume home medications for comorbidities #3 discharge planning - Assessment/Plan (1) UTI (urinary tract infection) Problem: Acute Qualifiers: Urinary tract infection type: catheter-associated UTI (2) Altered mental status Problem: Resolved Qualifiers: (3) Hyponatremia Problem: Resolved (4) Paraplegia Problem: Chronic (5) Multiple sclerosis Problem: Chronic (6) Hypothyroidism Problem: Chronic (7) Hypertension Problem: Chronic Qualifiers: (8) Hyperlipidemia Problem: Chronic (9) Chronic indwelling [place] catheter Problem: Chronic (1) UTI (urinary tract infection) Problem: Acute Qualifiers: (2) Altered mental status Problem: Resolved Qualifiers: (3) Hyponatremia Problem: Resolved (4) Paraplegia Problem: Chronic (5) Multiple sclerosis Problem: Chronic (6) Hypothyroidism Problem: Chronic (7) Hypertension Problem: Chronic Qualifiers: (8) Hyperlipidemia Problem: Chronic (9) Chronic indwelling Huddl[place] catheter Problem: Chronic Hospital Course: 64-year-old female with a past medical history of multiple sclerosis, paraplegia, hypothyroidism, hypertension, hyperlipidemia, recurrent UTIs, chronic indwelling suprapubic catheter, left ventricular hypertrophy, trigeminal neuralgia presents from the [facility] with altered mental status. She presented to the emergency room and was found to have hyponatremia 127, mild hyperkalemia 5.3, positive UA, mild leukocytosis elevated WBC of 10.6. She was givena IV fluids and started on ceftriaxone for the UTI. Today she appears well and is alert and oriented x3. She is back to her baseline and ready to be discharged home. I will send her home on oral antibiotics with Cefpodoxime 100 mg twice daily for 5 more days. Procedures Performed: none Results and Findings: Lab Pending Results 02/26/20 01:23: Lactic Acid, Venous 1.4 02/26/20 02:00: WBC 10.6 H, RBC 4.23, Hgb 12.0 L, Hct 36.9 L, MCV 87.2, MCH 28.4, MCHC 32.5, RDW 14.3 H, Plt Count 378, MPV 8.5, Immature Gran % (Auto) 0.40, Immature Gran # (Auto) 0.04 H, Neutrophils % 65.8, Lymphocytes % 21.2, Monocytes % 8.3, Eosinophils % 3.5 H, Basophils % 0.8, Nucleated RBC % 0.0, Neutrophils # 7.0 H, Lymphocytes # 2.25, Monocytes # 0.9, Eosinophils # 0.4, Absolute Basophils 0.1 02/26/20 02:00: Sodium 127 L, Plasma Sodium 127 L, Potassium 5.3 H D, Chloride 95 L, Carbon Dioxide 30.1, Anion Gap 7.2, BUN 14 D, Creatinine 0.64, Est GFR (Non-Af Amer) 99 D, BUN/Creatinine Ratio 21.9 H, Random Glucose 102, Calcium 8.9, Calcium Adj for Albumin 9.3, Total Bilirubin 0.3, AST 17, ALT 24, Alkaline Phosphatase 86, Total Protein 6.7, Albumin 3.1 L 11/12/20 02:29: Urine Color Dark yellow, Urine Appearance Slightly cloudy, Urine pH 8.0 H, Ur Specific [place] 1.020, Urine Protein 100 H, Urine Glucose (UA) Negative, Urine Ketones Negative, Urine Blood 250 H, Urine Nitrate Negative, Urine Bilirubin 1 H, Urine Ictotest Negative, Prot Sulfosalicylic Acd 4+ H, Urine Urobilinogen Normal, Ur Leukocyte Esterase 500 H, Urine RBC 25-50 H, Urine WBC >50 H, Ur Epithelial Cells 0-5, Urine Bacteria 3+ H, Urine Culture Comments Culture to follow 02/26/20 03:25: Potassium 4.9 H 02/26/20 03:51: SARS-CoV-2 (PCR) Not detected 02/26/20 06:23: WBC 9.0, RBC 3.95 L, Hgb 11.2 L, Hct 34.8 L, MCV 88.1, MCH 28.4, MCHC 32.2, RDW 14.2 H, Plt Count 380, MPV 8.7, Immature Gran % (Auto) 0.30, Immature Gran # (Auto) 0.03, Neutrophils % 66.8, Lymphocytes % 20.7, Monocytes % 7.7, Eosinophils % 3.8 H, Basophils % 0.7, Nucleated RBC % 0.0, Neutrophils # 6.0, Lymphocytes # 1.87, Monocytes # 0.7, Eosinophils # 0.3, Absolute Basophils 0.1 02/26/20 06:23: Sodium 130 L, Plasma Sodium 130, Potassium 4.2, Chloride 98, Carbon Dioxide 29.0, Anion Gap 7.2, BUN 11, Creatinine 0.54, Est GFR (Non-Af Amer) 120 D, BUN/Creatinine Ratio 20.4, Random Glucose 90, Calcium 8.5, Calcium Adj for Albumin 9.1, Total Bilirubin 0.3, AST 16, ALT 25, Alkaline Phosphatase 79, Total Protein 6.4, Albumin 2.9 L Discharge Location: [facility] Disposition: Intermediate Care Facility ICF Condition: Good Level of Care: ICF Discharge Activity: Non-Weight bearing Discharge Diet: General/regular food Referrals: Krystal Hernandez ARNP [Primary Care Provider] - Additional Patient Instructions (free text): To [facility] level of care. Prescriptions (Any new or edited meds): Cefpodoxime Proxetil 100 mg PO BID 5 Days #10 tab Transmission Status: Pending to [facility] Complete Home Medications List: Complete Home Medication List: Aspirin [Aspirin Chewable] 81 mg PO DAILY 07/19/12 Calcium Carbonate/Vitamin D3 [Calcium 600-Vit D3 200 Tablet] 1 ea PO 0700,1100,1500 07/19/12 Rosuvastatin Calcium [Crestor] 20 mg PO HS 07/19/12 predniSONE [Prednisone] 5 mg PO DAILY 07/19/12 Baclofen 20 mg PO 0700,1100,1500,1900 02/27/16 Polyethylene Glycol 3350 [Miralax] 17 gm PO DAILY 04/24/16 Acetaminophen [Tylenol] 650 mg PO QID PRN #0 tab 04/28/16 Levothyroxine Sodium [Synthroid] 88 mcg PO DAILY 09/07/17 Atenolol [Tenormin] 25 mg PO DAILY #30 tab 09/12/17 gabapentin 800 mg tablet 800 mg PO QID 11/02/17 Metoprolol Succinate [Toprol Xl] 50 mg PO DAILY #30 tablet.sa 11/22/17 sodium chloride 0.9 % irrigation solution 1 irrig IR DAILY 8 Days #1000 ml 01/25/18 carBAMazepine [Tegretol] 2 tab PO BID 05/17/18 potassium chloride 20 mEq tablet,extended release 20 meq PO BID #60 tab 05/27/18 loratadine 10 mg tablet 10 mg PO DAILY #30 tab 09/17/18 multivitamin 1 tab PO DAILY #28 tab 10/18/18 oxybutynin chloride 5 mg tablet,extended release 24 hr 5 mg PO DAILY #30 tab 06/03/19 methenamine hippurate 1 gram tablet 1 g PO BID #60 tab 02/13/20 methadone 5 mg tablet 5 mg PO DAILY #30 tab 02/17/20 Cefpodoxime Proxetil 100 mg PO BID 5 Days #10 tab 02/26/20 Ceramides 1,3,6-11 [Cerave Moisturizing] 453 gm TOPICAL DAILY PRN 02/26/20 Imipramine HCl [Tofranil] 25 mg PO HS 02/26/20 Nystatin [Mycostatin Cream] 1 appl TOPICAL TID PRN 02/26/20 Omeprazole 10 mg PO DAILY 02/26/20
[2020-02-26 13:27] VITALS: BP 133/59
[2020-02-26] MEDS ORDERED: IMIPRAMINE HCL 25 MG TABLET PO SCH (21:00)
[2020-02-26] MEDS ORDERED: ROSUVASTATIN CALCIUM 20 MG TABLET PO SCH (21:00)
== END 2020-02-26 14:19 ==
LOC: MS 00:09 → ER 00:09 → INTOOBSV 04:29 → OBSVTOIN 04:29 → MS 08:27
PROVIDERS: ADMIT Internal Medicine; ATTEND Internal Medicine